=== PATIENT | male | born 1960 | race Caucasian/White ===

== ENCOUNTER → 2016-04-28 | Outpatient (REF) | payer MEDICARE, MEDICAID ==
[~2016-04-28] MED LIST: /GLYB5TA OR; AMLO10TAB OR; ASPI81TA45 OR; ATEN50TA2 OR; BACT800T PO; COLA100C2 OR; FERR325T OR; FLUC10TA PO; LANTUS INSULIN SQ; LEVEMIR INSULIN SC; LISI20TA5 OR; LOTRIMIN CREAM TOP; METF500T4 OR; NOVOLOG100 MG/ML SC; PRIL20CA OR; VYTO10TA5 OR
[2016-04-28 16:02] LABS: ALBUMIN 3.6 GM/DL (3.2-5.2); ALBUMIN/GLOBULIN RATIO 0.92 (1.00-1.93); BILIRUBIN,TOTAL 0.5 MG/DL (0.2-1.0); CALCIUM LEVEL 9.2 MG/DL (8.5-10.1); CREATININE FOR GFR 1.33 MG/DL (0.70-1.30); GLOMERULAR FILTRATION RATE 59.6 (>56); POTASSIUM SERUM 4.3 MEQ/L (3.5-5.1); TOTAL PROTEIN 7.5 GM/DL (6.4-8.2)
== END ==
LOC: M SFHCSACK 08:30
PROVIDERS: ATTEND Physician Assistant
DX: E11.9 Type 2 diabetes mellitus without complications (principal); I10 Essential (primary) hypertension; E78.2 Mixed hyperlipidemia

== ENCOUNTER 2016-06-05 11:03 | Emergency (ER) | payer MEDICAID, MEDICARE ==
[~2016-06-05] VITALS: Ht 193 cm; Wt 148.3 kg
[2016-06-05] MEDS ORDERED: TOUJ1.2I (11:22)
[2016-06-05] MEDS ORDERED: JARD1TAB (11:22)
[2016-06-05] MEDS ORDERED: OXYCODONE (11:22)
[2016-06-05] MEDS ORDERED: ATOR40TA (11:22)
[2016-06-05] MEDS ORDERED: ZOLP10TA2 (11:22)
[2016-06-05] MEDS ORDERED: LISI10TA2 (11:22)
[2016-06-05] MEDS ORDERED: ONDANSETRON 4MG/2ML VIAL (J2405) IV ONE (11:45)
[2016-06-05] MEDS ORDERED: NS 1,000 ML IV ONE (11:45)
[2016-06-05 11:53] LABS: BASO # 0.1 K/mm3 (0.0-0.2); BASO % 0.9 % (0.0-1.0); EOS # 0.3 K/mm3 (0.0-0.50); EOS % 3.7 % (0.0-3.0); LARGE UNSTAINED CELL # 0.1 K/mm3 (0.0-0.4); LARGE UNSTAINED CELL % 1.7 % (0.0-4.0); LYMPH # 2.8 K/mm3 (1.5-4.5); MEAN CORPUSCULAR HEMOGLOBIN 32.4 pg (27.0-33.0); MEAN CORPUSCULAR HGB CONC 35.2 g/dl (32.0-36.5); MEAN CORPUSCULAR VOLUME 91.9 fl (80.0-96.0); MONO # 0.5 K/mm3 (0.0-0.8); MONO % 6.1 % (0.0-5.0); NEUTROPHILS # 4.2 K/mm3 (1.8-7.7); NEUTROPHILS % 52.6 % (36.0-66.0); PLATELET COUNT, AUTOMATED 333 k/mm3 (150-450)
--- NOTE | 2016-06-05 12:12 | REP ---
Acute abdominal series three views including PA chest and supine upright abdomen: Comparison is 2011. PA chest: Lung menendez are clear. Cardiac size is normal. The dayanna, mediastinum, and bony thorax are unremarkable. There is thoracic scoliosis convex right, unchanged. There is no free subdiaphragmatic air. Impression: Essentially negative PA chest. No interval change. Abdomen, supine and upright views: There are fluid levels in nondistended bowel loops in the abdomen on the right. This is nonspecific. There is no bowel distension or obstruction otherwise. There are a surgical staple lines in the left upper quadrant, not present previously. Skeletal structures and soft tissues otherwise are unremarkable. Impression: Nonspecific bowel gas pattern. Signed by Richard Timmons MD 06/05/2016 12:04 P
[2016-06-05 12:15] LABS: ALBUMIN 3.4 GM/DL (3.2-5.2); ALBUMIN/GLOBULIN RATIO 0.71 (1.00-1.93); BILIRUBIN,DIRECT 0.2 MG/DL (0.0-0.2); BILIRUBIN,TOTAL 0.5 MG/DL (0.2-1.0); CREATININE FOR GFR 1.47 MG/DL (0.70-1.30); GLOMERULAR FILTRATION RATE 53.1 (>56); POTASSIUM SERUM 4.1 MEQ/L (3.5-5.1); TOTAL PROTEIN 8.2 GM/DL (6.4-8.2)
--- NOTE | 2016-06-05 12:27 | REP ---
Abdominal right upper quadrant ultrasound: The study is technically difficult because of patient body habitus and bowel gas. The gallbladder is not optimally visualized. There is question of a calculus in the dependent portion of the gallbladder, possibly in the gallbladder neck. The hepatic parenchyma is poorly demonstrated. There is no definite intrahepatic biliary duct dilatation. The common duct measures 6.7 mm diameter which is upper normal. Pancreas is obscured by bowel and is not visualized. There is no right renal hydronephrosis, calculus, mass or cyst. The right kidney is normal size measuring balloon 11.64 cm craniocaudad length. Impression: Suboptimal study because of patient body habitus. Possible gallbladder calculus, questionably in the gallbladder neck. There is a negative Thakur's sign to transducer pressure. Signed by Richard Timmons MD 06/05/2016 12:18 P
[2016-06-05] MEDS ORDERED: ZOFR4TAB3 PO (12:54)
[2016-06-05 13:06] VITALS: BP 125/68
--- NOTE | 2016-06-06 21:28 | ED PDOC ---
Post-Departure Follow-Up elly emanual faxed formal report of nicolas thompson for fu Maria De Jesus Fowler MD Jun 06, 2016 21:28
== END 2016-06-05 13:08 | disposition home or self-care (01) ==
LOC: M ED 11:35
DX: K80.70 Calculus of gallbladder and bile duct without cholecystitis without obstruction (principal); R11.0 Nausea; I10 Essential (primary) hypertension; E11.9 Type 2 diabetes mellitus without complications; E78.00 Pure hypercholesterolemia, unspecified; G47.30 Sleep apnea, unspecified; K21.9 Gastro-esophageal reflux disease without esophagitis; M54.9 Dorsalgia, unspecified; Z87.442 Personal history of urinary calculi; Z98.84 Bariatric surgery status; Z87.891 Personal history of nicotine dependence; Z79.899 Other long term (current) drug therapy; Z79.4 Long term (current) use of insulin; Z79.84 Long term (current) use of oral hypoglycemic drugs; Z79.2 Long term (current) use of antibiotics
CPT/HCPCS: 36415; 74022; 76705; 80048; 80076; 82150; 83690; 85025; 96374; 99283; J2405

== ENCOUNTER → 2016-07-29 | Outpatient (CLI) | payer MEDICARE, MEDICAID ==
[~2016-07-29] MED LIST changes: +ATOR40TA; +JARD1TAB; +LISI10TA2; +OXYCODONE; +TOUJ1.2I; +ZOFR4TAB3 PO; +ZOLP10TA2
== END ==
LOC: M WUC 11:58
PROVIDERS: ATTEND Physician Assistant
DX: M25.511 Pain in right shoulder (principal)

== ENCOUNTER → 2016-08-20 | Outpatient (REF) | payer MEDICARE, MEDICAID ==
[~2016-08-20] MED LIST changes: -ATOR40TA; +ATOR40TA75
[2016-08-20 16:34] LABS: ALBUMIN 3.6 GM/DL (3.2-5.2); ALBUMIN/GLOBULIN RATIO 0.95 (1.00-1.93); BILIRUBIN,TOTAL 0.6 MG/DL (0.2-1.0); CALCIUM LEVEL 9.3 MG/DL (8.5-10.1); CREATININE FOR GFR 1.61 MG/DL (0.70-1.30); GLOMERULAR FILTRATION RATE 47.8 (>56); POTASSIUM SERUM 4.3 MEQ/L (3.5-5.1); TOTAL PROTEIN 7.4 GM/DL (6.4-8.2)
== END ==
LOC: M SFHCSACK 08:49
PROVIDERS: ATTEND Physician Assistant
DX: I10 Essential (primary) hypertension (principal); E11.9 Type 2 diabetes mellitus without complications; E78.2 Mixed hyperlipidemia

== ENCOUNTER → 2016-10-22 | Outpatient (REF) | payer MEDICARE, MEDICAID ==
[2016-10-22 17:29] LABS: ALBUMIN 3.9 GM/DL (3.2-5.2); ALBUMIN/GLOBULIN RATIO 0.89 (1.00-1.93); ALKALINE PHOSPHATASE 106 U/L (45-117); ALT/SGPT 22 U/L (12-78); ANION GAP 9 MEQ/L (8-16); AST/SGOT 22 U/L (15-37); BILIRUBIN,TOTAL 0.4 MG/DL (0.2-1.0); BLOOD UREA NITROGEN 30 MG/DL (7-18); CALCIUM LEVEL 10.3 MG/DL (8.5-10.1); CARBON DIOXIDE LEVEL 29 MEQ/L (21-32); CHLORIDE LEVEL 105 MEQ/L (98-107); CHOLESTEROL LEVEL 148 MG/DL (<200); GLOMERULAR FILTRATION RATE > 60.0 (>56); GLUCOSE, FASTING 165 MG/DL (70-105); POTASSIUM SERUM 3.8 MEQ/L (3.5-5.1); SODIUM LEVEL 143 MEQ/L (136-145); TOTAL PROTEIN 8.3 GM/DL (6.4-8.2); TRIGLYCERIDES LEVEL 158 MG/DL (<150)
[2016-10-22 19:33] LABS: BASO # 0.1 K/mm3 (0.0-0.2); BASO % 1.4 % (0.0-1.0); EOS # 0.3 K/mm3 (0.0-0.50); EOS % 3.8 % (0.0-3.0); LARGE UNSTAINED CELL # 0.2 K/mm3 (0.0-0.4); LARGE UNSTAINED CELL % 2.2 % (0.0-4.0); LYMPH # 3.4 K/mm3 (1.5-4.5); LYMPH % 37.7 % (24.0-44.0); MEAN CORPUSCULAR HEMOGLOBIN 30.5 pg (27.0-33.0); MEAN CORPUSCULAR HGB CONC 32.4 g/dl (32.0-36.5); MONO # 0.5 K/mm3 (0.0-0.8); MONO % 5.7 % (0.0-5.0); NEUTROPHILS # 4.2 K/mm3 (1.8-7.7); NEUTROPHILS % 49.3 % (36.0-66.0); PLATELET COUNT, AUTOMATED 402 k/mm3 (150-450); RED CELL DISTRIBUTION WIDTH 13.1 % (11.5-14.5); WHITE BLOOD COUNT 8.4 K/mm3 (4.0-10.0)
== END ==
LOC: M SFHCSACK 08:26
PROVIDERS: ATTEND Physician Assistant
DX: I10 Essential (primary) hypertension (principal); E78.2 Mixed hyperlipidemia; E11.9 Type 2 diabetes mellitus without complications

== ENCOUNTER → 2017-01-24 | Outpatient (REF) | payer MEDICARE, MEDICAID ==
[2017-01-24 14:57] LABS: BASO # 0.1 10^3/uL (0.0-0.2); BASO % 1.5 % (0.0-1.0); EOS # 0.4 10^3/uL (0.0-0.50); EOS % 4.4 % (0.0-3.0); IMMATURE GRANULOCYTE % 0.1 % (0-0); LYMPH # 3.2 10^3/uL (1.5-4.5); LYMPH % 40.7 % (24.0-44.0); MEAN CORPUSCULAR HEMOGLOBIN 30.9 pg (27.0-33.0); MEAN CORPUSCULAR HGB CONC 32.2 g/dl (32.0-36.5); MEAN CORPUSCULAR VOLUME 95.8 fl (80.0-96.0); MONO # 0.7 10^3/uL (0.0-0.8); MONO % 8.6 % (0.0-5.0); NEUTROPHILS # 3.5 10^3/uL (1.8-7.7); NEUTROPHILS % 44.7 % (36.0-66.0); PLATELET COUNT, AUTOMATED 343 10^3/uL (150-450); RED CELL DISTRIBUTION WIDTH 12.1 % (11.5-14.5); WHITE BLOOD COUNT 7.9 10^3/uL (4.0-10.0)
[2017-01-24 15:20] LABS: ALBUMIN 3.9 GM/DL (3.2-5.2); ALBUMIN/GLOBULIN RATIO 0.95 (1.00-1.93); BILIRUBIN,TOTAL 0.3 MG/DL (0.2-1.0); CALCIUM LEVEL 9.2 MG/DL (8.5-10.1); CREATININE FOR GFR 1.57 MG/DL (0.70-1.30); FREE T4 0.81 NG/DL (0.76-1.46); GLOMERULAR FILTRATION RATE 49.3 (>56)
== END ==
LOC: M SFHCSACK 08:45
PROVIDERS: ATTEND Physician Assistant
DX: D64.9 Anemia, unspecified (principal); I10 Essential (primary) hypertension; R53.83 Other fatigue; E11.9 Type 2 diabetes mellitus without complications; E78.2 Mixed hyperlipidemia; Z23 Encounter for immunization; Z79.899 Other long term (current) drug therapy

== ENCOUNTER → 2017-03-16 | Outpatient (REF) | payer MEDICARE, MEDICAID ==
[2017-03-16 20:21] LABS: RETIC HEMOGLOBIN EQUIVALENT 36.3 pg (24-36); RETICULOCYTE % 1.4 % (0.5-1.5)
[2017-03-16 20:44] LABS: ERYTHROCYTE SEDIMENTATION RATE 65 mm/hr (0-20)
[2017-03-16 20:46] LABS: VITAMIN B12 LEVEL 984 PG/ML (247-911)
[2017-03-16 21:00] LABS: FERRITIN 232 NG/ML (26-388); IRON (FE) 73 UG/DL (65-175); PERCENT SATURATION 23.2 % (19.7-50.0); TOTAL IRON BINDING CAPACITY 315 UG/DL (250-450)
[2017-03-17 11:38] LABS: ALBUMIN 4.22 GM/DL (3.29-5.55); ALBUMIN % 52.7 % (55.8-66.1); ALPHA-1-GLOBULIN % 4.4 % (2.9-4.9); ALPHA-1-GLOBULINS 0.35 GM/DL (0.17-0.41); ALPHA-2-GLOBULINS % 12.5 % (7.1-11.8); BETA-1-GLOBULINS 0.53 GM/DL (0.28-0.60); BETA-1-GLOBULINS % 6.6 % (4.7-7.2); BETA-2-GLOBULINS % 6.3 % (3.2-6.5); GAMMA GLOBULIN % 17.5 % (11.1-18.8)
[2017-03-19 00:08] LABS: HAPTOGLOBIN 219 mg/dL (34-200)
[2017-03-19 00:08] LABS: ERYTHROPOIETIN 6.7 mIU/mL (2.6-18.5); FREE KAPPA LIGHT CHAINS SERUM 45.5 mg/L (3.3-19.4); FREE LAMBDA LIGHT CHAINS SERUM 28.5 mg/L (5.7-26.3)
== END ==
LOC: M LAB REF 19:54
DX: D64.9 Anemia, unspecified (principal)
CPT/HCPCS: 83010

== ENCOUNTER → 2017-04-14 | Outpatient (REF) | payer MEDICARE, MEDICAID ==
[2017-04-14 14:38] LABS: RHEUMATOID FACTOR QUANT < 10.0 IU/ML (0-15.0)
[2017-04-14 15:06] LABS: ERYTHROCYTE SEDIMENTATION RATE 67 mm/hr (0-20)
[2017-04-15 14:36] LABS: ANTINUCLEAR ANTIBODIES DIRECT Negative (Negative)
== END ==
LOC: M LAB REF 13:12
DX: D64.9 Anemia, unspecified (principal)
CPT/HCPCS: 85652

== ENCOUNTER → 2017-05-02 | Outpatient (REF) | payer MEDICARE, MEDICAID ==
[2017-05-02 14:20] LABS: BASO # 0.1 10^3/uL (0.0-0.2); BASO % 1.4 % (0.0-1.0); EOS # 0.3 10^3/uL (0.0-0.50); EOS % 4.3 % (0.0-3.0); HEMATOCRIT 34.5 % (42.0-52.0); HEMOGLOBIN 11.2 g/dl (14.0-18.0); IMMATURE GRANULOCYTE % 0.3 % (0-3.0); LYMPH # 3.2 10^3/uL (1.5-4.5); LYMPH % 43.1 % (24.0-44.0); MEAN CORPUSCULAR HEMOGLOBIN 30.9 pg (27.0-33.0); MEAN CORPUSCULAR HGB CONC 32.5 g/dl (32.0-36.5); MONO # 0.6 10^3/uL (0.0-0.8); MONO % 8.4 % (0.0-5.0); NEUTROPHILS # 3.1 10^3/uL (1.8-7.7); NEUTROPHILS % 42.5 % (36.0-66.0); PLATELET COUNT, AUTOMATED 379 10^3/uL (150-450); RED BLOOD COUNT 3.63 10^6/uL (4.30-6.10); RED CELL DISTRIBUTION WIDTH 11.7 % (11.5-14.5); WHITE BLOOD COUNT 7.4 10^3/uL (4.0-10.0)
[2017-05-02 14:40] LABS: ALBUMIN/GLOBULIN RATIO 1.03 (1.00-1.93); ALKALINE PHOSPHATASE 104 U/L (45-117); ALT/SGPT 12 U/L (12-78); ANION GAP 8 MEQ/L (8-16); AST/SGOT 9 U/L (7-37); BILIRUBIN,TOTAL 0.4 MG/DL (0.2-1.0); BLOOD UREA NITROGEN 34 MG/DL (7-18); CALCIUM LEVEL 9.5 MG/DL (8.5-10.1); CARBON DIOXIDE LEVEL 26 MEQ/L (21-32); CHLORIDE LEVEL 108 MEQ/L (98-107); CREATININE FOR GFR 1.31 MG/DL (0.70-1.30); FERRITIN 246 NG/ML (26-388); GLOMERULAR FILTRATION RATE > 60.0 (>56); GLUCOSE, FASTING 127 MG/DL (70-100); IRON (FE) 83 UG/DL (65-175); PERCENT SATURATION 24.8 % (19.7-50.0); POTASSIUM SERUM 4.9 MEQ/L (3.5-5.1); SODIUM LEVEL 142 MEQ/L (136-145); TOTAL IRON BINDING CAPACITY 335 UG/DL (250-450); TOTAL PROTEIN 7.9 GM/DL (6.4-8.2)
[2017-05-02 14:41] LABS: ESTIMATED AVERAGE GLUCOSE 137 MG/DL (60-110); HEMOGLOBIN A1c 6.4 %
== END ==
LOC: M SFHCSACK 08:44
DX: E78.2 Mixed hyperlipidemia (principal); I10 Essential (primary) hypertension; D64.9 Anemia, unspecified; E11.9 Type 2 diabetes mellitus without complications
CPT/HCPCS: 83550

== ENCOUNTER → 2017-06-14 | Outpatient (CLI) | payer MEDICARE, MEDICAID ==
[2017-06-14 09:23] LABS: HEMATOCRIT 33.1 % (42.0-52.0); HEMOGLOBIN 10.9 g/dl (13.5-17.5); MEAN CORPUSCULAR HEMOGLOBIN 31.1 pg (27.0-33.0); MEAN CORPUSCULAR HGB CONC 32.9 g/dl (32.0-36.5); MEAN CORPUSCULAR VOLUME 94.6 fl (80.0-96.0); PLATELET COUNT, AUTOMATED 286 10^3/uL (150-450); RED CELL DISTRIBUTION WIDTH 12.1 % (11.5-14.5); WHITE BLOOD COUNT 5.8 10^3/uL (4.0-10.0)
[2017-06-14 10:06] LABS: ALBUMIN 3.8 GM/DL (3.2-5.2); ALBUMIN/GLOBULIN RATIO 1.03 (1.00-1.93); ALKALINE PHOSPHATASE 96 U/L (45-117); ALT/SGPT 14 U/L (12-78); ANION GAP 7 MEQ/L (8-16); AST/SGOT 13 U/L (7-37); BILIRUBIN,TOTAL 0.4 MG/DL (0.2-1.0); BLOOD UREA NITROGEN 24 MG/DL (7-18); CALCIUM LEVEL 9.2 MG/DL (8.5-10.1); CARBON DIOXIDE LEVEL 26 MEQ/L (21-32); CHLORIDE LEVEL 112 MEQ/L (98-107); CHOLESTEROL LEVEL 125 MG/DL (<200); CHOLESTEROL RISK RATIO 2.976 (<5); CREATININE FOR GFR 1.29 MG/DL (0.70-1.30); GLOMERULAR FILTRATION RATE > 60.0 (>56); GLUCOSE, FASTING 134 MG/DL (70-100); HDL CHOLESTEROL 42 MG/DL (>40); LDL CHOLESTEROL 65.4 MG/DL (<100); NON-HDL-C 83 MG/DL; POTASSIUM SERUM 4.8 MEQ/L (3.5-5.1); PROSTATIC SPECIFIC AG MONITOR 0.46 NG/ML (< 4.0); SODIUM LEVEL 145 MEQ/L (136-145); TOTAL PROTEIN 7.5 GM/DL (6.4-8.2); TRIGLYCERIDES LEVEL 88 MG/DL (<150)
[2017-06-14 10:34] LABS: TESTOSTERONE 541 NG/DL (241-827)
[2017-06-14 10:54] LABS: ESTIMATED AVERAGE GLUCOSE 151 MG/DL (60-110); HEMOGLOBIN A1c 6.9 %
== END ==
LOC: M LAB 08:30
DX: I10 Essential (primary) hypertension (principal); E11.9 Type 2 diabetes mellitus without complications; R53.83 Other fatigue; R00.1 Bradycardia, unspecified; R94.31 Abnormal electrocardiogram [ECG] [EKG]; Z79.899 Other long term (current) drug therapy
CPT/HCPCS: 71046

== ENCOUNTER → 2017-08-04 | Outpatient (CLI) | payer MEDICARE, MEDICAID ==
[~2017-08-04] MED LIST changes: -/GLYB5TA OR; -AMLO10TAB OR; -ASPI81TA45 OR; -ATEN50TA2 OR; -ATOR40TA75; -BACT800T PO; -COLA100C2 OR; +E-Z-GAS II EFFERVESCENT PACKET (SODIUM BICARB./CITRIC ACID/SIMETHICONE) As Ordered; +E-Z-HD 98% w/w 340GM SUSP BTL As Ordered; +E-Z-PAQUE 96% w/w SUSP 176GM BTL As Ordered; -FERR325T OR; -FLUC10TA PO; -JARD1TAB; -LANTUS INSULIN SQ; -LEVEMIR INSULIN SC; -LISI10TA2; -LISI20TA5 OR; -LOTRIMIN CREAM TOP; -METF500T4 OR; -NOVOLOG100 MG/ML SC; -OXYCODONE; -PRIL20CA OR; -TOUJ1.2I; -VYTO10TA5 OR; -ZOFR4TAB3 PO; -ZOLP10TA2
== END ==
LOC: M RAD 09:06
DX: D64.9 Anemia, unspecified (principal); Z98.84 Bariatric surgery status
CPT/HCPCS: 74241

== ENCOUNTER → 2017-08-19 | Outpatient (CLI) | payer MEDICARE ==
[2017-08-19 13:46] LABS: ANION GAP 10 MEQ/L (8-16); BLOOD UREA NITROGEN 35 MG/DL (7-18); CALCIUM LEVEL 10.1 MG/DL (8.5-10.1); CARBON DIOXIDE LEVEL 28 MEQ/L (21-32); CHLORIDE LEVEL 103 MEQ/L (98-107); CREATININE FOR GFR 1.62 MG/DL (0.70-1.30); GLOMERULAR FILTRATION RATE 47.3 (>56); GLUCOSE, FASTING 173 MG/DL (70-100); POTASSIUM SERUM 4.4 MEQ/L (3.5-5.1); SODIUM LEVEL 141 MEQ/L (136-145)
== END ==
LOC: M SMT 10:58
DX: R31.9 Hematuria, unspecified (principal)
CPT/HCPCS: 80048

== ENCOUNTER → 2017-08-19 | Outpatient (REF) | payer MEDICARE, MEDICAID ==
[2017-08-19 13:20] LABS: APPEARANCE, URINE CLOUDY (CLEAR); BACTERIA, URINE AUTO 3+ (NEGATIVE); BILIRUBIN, URINE AUTO NEGATIVE (NEGATIVE); BLOOD, URINE BLOOD 2+ (NEGATIVE); COLOR, URINE YELLOW (YELLOW); GLUCOSE, URINE (UA) AUTO NEGATIVE (NEGATIVE); KETONE, URINE AUTO NEGATIVE (NEGATIVE); LEUKOCYTE ESTERASE, URINE AUTO 3+ (NEGATIVE); MUCUS, URINE SMALL (NEGATIVE); NITRITE, URINE AUTO NEGATIVE (NEGATIVE); PROTEIN, URINE AUTO 1+ mg/dL (NEGATIVE); RBC, URINE AUTO 27 /HPF (0-3); SPECIFIC GRAVITY URINE AUTO 1.014 (1.002-1.035); SQUAMOUS EPITHELIAL CELL UR AU 3 /HPF (0-6); WBC, URINE AUTO TNTC /HPF (0-3)
== END ==
LOC: M SMT 13:07
DX: R31.9 Hematuria, unspecified (principal)
CPT/HCPCS: 80048; 81001

== ENCOUNTER → 2017-08-25 | Outpatient (CLI) | payer MEDICARE, MEDICAID | LOC: M RAD 07:30 | DX: R31.0 Gross hematuria (principal) | CPT/HCPCS: 74176 ==

== ENCOUNTER → 2017-09-12 | Outpatient (REF) | payer MEDICARE, MEDICAID | LOC: M SMT 13:13 | DX: N39.0 Urinary tract infection, site not specified (principal) | CPT/HCPCS: 87086 ==

== ENCOUNTER → 2017-10-20 | Outpatient (REF) | payer MEDICARE, MEDICAID ==
[2017-10-20 14:35] LABS: ANION GAP 8 MEQ/L (8-16); BLOOD UREA NITROGEN 20 MG/DL (7-18); CALCIUM LEVEL 9.2 MG/DL (8.5-10.1); CARBON DIOXIDE LEVEL 28 MEQ/L (21-32); CHLORIDE LEVEL 107 MEQ/L (98-107); CHOLESTEROL LEVEL 126 MG/DL (<200); CHOLESTEROL RISK RATIO 3.405 (<5); CREATININE FOR GFR 1.25 MG/DL (0.70-1.30); GLOMERULAR FILTRATION RATE > 60.0 (>56); GLUCOSE, FASTING 153 MG/DL (70-100); HDL CHOLESTEROL 37 MG/DL (>40); LDL CHOLESTEROL 66.8 MG/DL (<100); NON-HDL-C 89 MG/DL; POTASSIUM SERUM 4.1 MEQ/L (3.5-5.1); SODIUM LEVEL 143 MEQ/L (136-145); TRIGLYCERIDES LEVEL 111 MG/DL (<150)
[2017-10-20 14:55] LABS: MALB URINE SIEMENS 19.6 MG/L; MAU/CREAT RATIO 17.3 MCG/MG (0.0-30.0)
== END ==
LOC: M LAB REF 13:00
DX: E11.65 Type 2 diabetes mellitus with hyperglycemia (principal); E78.00 Pure hypercholesterolemia, unspecified; D72.828 Other elevated white blood cell count
CPT/HCPCS: 80061

== ENCOUNTER → 2017-10-20 | Outpatient (REF) | payer MEDICARE, MEDICAID | LOC: M LAB REF 12:57 | DX: D72.828 Other elevated white blood cell count (principal) ==

== ENCOUNTER → 2018-10-20 | Outpatient (CLI) | payer MEDICARE ==
[~2018-10-20] MED LIST changes: +AMLO10TAB OR; +ASPI81TA45 OR; +ATEN50TA2 OR; +ATOR40TA75; +BACT800T PO; +COLA100C2 OR; +COLA100C5 PO; -E-Z-GAS II EFFERVESCENT PACKET (SODIUM BICARB./CITRIC ACID/SIMETHICONE) As Ordered; -E-Z-HD 98% w/w 340GM SUSP BTL As Ordered; -E-Z-PAQUE 96% w/w SUSP 176GM BTL As Ordered; +FERR325T OR; +FERR325T3 PO; +FLUC10TA PO; +GLYB1TAB29 OR; +HYDR25TAB PO; +INSUHUMDS SC; +JARD1TAB; +LANTUS INSULIN SQ; +LEVEMIR INSULIN SC; +LISI10TA15; +LISI20TA5 OR; +LOTRIMIN CREAM TOP; +METF-839 PO; +METF500T4 OR; +NOVOLOG100 MG/ML SC; +OMEP20CA4 PO; +OXYC1TAB23 PO; +OXYCODONE; +PRIL20CA OR; +TIZA4CAP6 PO; +TOUJ1.2I; +VYTO10TA5 OR; +ZOFR4TAB14 PO; +ZOLP10TA2
[2018-10-20 10:45] LABS: ALBUMIN 3.8 GM/DL (3.2-5.2); ALT/SGPT 16 U/L (12-78); BILIRUBIN,TOTAL 0.6 MG/DL (0.2-1.0); BLOOD UREA NITROGEN 22 MG/DL (7-18); CALCIUM LEVEL 9.8 MG/DL (8.5-10.1); CARBON DIOXIDE LEVEL 29 MEQ/L (21-32); CHLORIDE LEVEL 106 MEQ/L (98-107); CHOLESTEROL LEVEL 140 MG/DL (<200); CHOLESTEROL RISK RATIO 3.414 (<5); CREATININE FOR GFR 1.05 MG/DL (0.70-1.30); GLOMERULAR FILTRATION RATE > 60.0 (>56); GLUCOSE, FASTING 122 MG/DL (70-100); HDL CHOLESTEROL 41 MG/DL (>40); LDL CHOLESTEROL 79 MG/DL (<100); NON-HDL-C 99 MG/DL; POTASSIUM SERUM 4.9 MEQ/L (3.5-5.1); SODIUM LEVEL 141 MEQ/L (136-145); TOTAL PROTEIN 7.6 GM/DL (6.4-8.2); TRIGLYCERIDES LEVEL 99 MG/DL (<150)
[2018-10-20 10:54] LABS: CREATININE, URINE 62.5 MG/DL; MALB URINE SIEMENS 24.4 MG/L
== END ==
LOC: M LAB 09:13
PROVIDERS: ATTEND Nurse Practitioner Family
DX: E11.65 Type 2 diabetes mellitus with hyperglycemia (principal); E78.00 Pure hypercholesterolemia, unspecified

== ENCOUNTER → 2019-04-25 | Outpatient (CLI) | payer MEDICARE, MEDICAID ==
[~2019-04-25] MED LIST changes: +FERR325T16 PO; +GEMF600T5 PO; +OMEP1CAP73 PO; -OMEP20CA4 PO; +PANT40TA3 PO
--- NOTE | 2019-04-25 18:42 | REP ---
Lumbar spine five views: There are no comparisons. Vertebral body heights, interspacing alignment are normal. There are mild degenerative disc changes at L1-2, L3-4 and L5 S1. The pedicles and facets are unremarkable. There is no spondylolysis or spondylolisthesis. The sacroiliac articulations are excluded. There is a surgical staple line in the abdomen on the left. Impression: Mild degenerative disc disease as described. Otherwise, negative lumbar spine. Surgical staple line in the abdomen on the left. Electronically Signed by Richard Timmons MD 04/25/2019 06:35 P
== END ==
LOC: M RAD 12:01
PROVIDERS: ATTEND Family Medicine
DX: M54.30 Sciatica, unspecified side (principal)

== ENCOUNTER → 2019-11-14 | Outpatient (REF) | payer MEDICARE, MEDICAID ==
[~2019-11-14] MED LIST changes: +ATEN50TA2 PO; +CEFD1CAP8 PO; +LISI-542 PO; +NAPR-837 PO; +OMEP40CA97 PO; +PANT40TA29 PO; -PANT40TA3 PO
[2019-11-14 14:47] LABS: MALB URINE SIEMENS 99.4 MG/L; MAU/CREAT RATIO 87.9 MCG/MG (0.0-30.0)
== END ==
LOC: M LAB REF 13:27
PROVIDERS: ATTEND Nurse Practitioner Family
DX: R80.9 Proteinuria, unspecified (principal)

== ENCOUNTER 2019-12-09 12:29 | Emergency (ER) | payer MEDICARE, MEDICAID ==
[~2019-12-09] VITALS: Ht 193 cm; Wt 134.6 kg
[~2019-12-09 12:29] MED LIST changes: -ATEN50TA2 PO; -CEFD1CAP8 PO; -LISI-542 PO; -NAPR-837 PO; -OMEP40CA97 PO
[2019-12-09] MEDS ORDERED: ATEN50TA2 PO (12:43)
[2019-12-09] MEDS ORDERED: OMEP40CA97 PO (12:43)
[2019-12-09] MEDS ORDERED: LISI-542 PO (12:43)
[2019-12-09] MEDS ORDERED: ONDANSETRON 4MG/2ML VIAL IV ONE (13:45)
[2019-12-09] MEDS ORDERED: MORPHINE 4 MG/ML 1ML VIAL/SYRINGE (J2270) IV ONE (13:45)
[2019-12-09] MEDS ORDERED: NS 1,000 ML IV ONE (13:45)
[2019-12-09] MEDS ORDERED: ISOVUE-370 76% 100ML VIAL As Ordered ONE (14:34)
[2019-12-09 14:38] LABS: BASO # 0.1 10^3/uL (0.0-0.2); BASO % 0.5 % (0.0-1.0); EOS % 0.2 % (0.0-3.0); HEMATOCRIT 35.3 % (42.0-52.0); HEMOGLOBIN 11.6 g/dl (13.5-17.5); LYMPH # 0.5 10^3/uL (1.5-5.0); LYMPH % 3.1 % (24.0-44.0); MEAN CORPUSCULAR HEMOGLOBIN 29.4 pg (27.0-33.0); MEAN CORPUSCULAR HGB CONC 32.9 g/dl (32.0-36.5); MEAN CORPUSCULAR VOLUME 89.6 fl (80.0-96.0); MONO # 0.7 10^3/uL (0.0-0.8); MONO % 4.9 % (0.0-5.0); NEUTROPHILS # 13.5 10^3/uL (1.5-8.5); NEUTROPHILS % 90.8 % (36.0-66.0); PLATELET COUNT, AUTOMATED 349 10^3/uL (150-450); RED BLOOD COUNT 3.94 10^6/uL (4.30-6.10); WHITE BLOOD COUNT 14.8 10^3/uL (4.0-10.0)
[2019-12-09 14:48] LABS: INR 1.03; PROTHROMBIN TIME 13.7 SECONDS (12.5-14.3)
[2019-12-09 14:49] LABS: PARTIAL THROMBOPLASTIN TIME 24.7 SECONDS (24.2-38.5)
[2019-12-09 15:11] LABS: CK-MB VALUE MASS < 1.0 NG/ML (<3.6); CPK CREATINE PHOSPHOKINASE 56 U/L (39-308); MB/CK RELATIVE INDEX 1.79 (< OR =4); TROPONIN I < 0.02 NG/ML (< 0.10)
--- NOTE | 2019-12-09 15:44 | REP ---
INDICATION: posterior neck pain, dizziness r/o vascular dz. COMPARISON: None. TECHNIQUE: Axial contrast-enhanced images were obtained from the thoracic inlet to the skull base with coronal and sagittal reformations using 100 cc Isovue 370 intravenous contrast material. Maximal intensity projection and multiplanar re-formation images along with 3-D rendered imaging of the arterial vasculature. This CT examination was performed using the following dose reduction techniques: Automated exposure control, adjustment of mA and/or kv according to the patient's size, and the use of iterative reconstruction technique. FINDINGS: The common carotid arteries, carotid bulbs and visualized portions of the external and the internal carotid arteries are normal. The vertebral bodies are patent and symmetric. There are no atherosclerotic lesions, areas of significant stenosis or occlusion identified. No obvious vascular abnormality noted. Bilateral jugular veins appear normal. Thyroid, parotid, submandibular and submental glands are normal. The oropharynx through hypopharynx demonstrates symmetric soft tissue structures. The airways patent and midline. There is no obvious mass or mass effect. The osseous structures are intact. Visualized osseous structures are intact. Visualized sinuses are clear. IMPRESSION: Normal CT angiography of the neck <Electronically signed by Ferny Naranjo > 12/09/19 [id number]
[2019-12-09] MEDS ORDERED: cefTRIAXone SOD 1 GM in D5W MINI-BAG PLUS 50 ML IV ONE (16:00)
[2019-12-09] MEDS ORDERED: NAPR-837 PO (16:05)
[2019-12-09] MEDS ORDERED: CEFD1CAP8 PO (16:05)
[2019-12-09 16:28] VITALS: BP 132/67
--- NOTE | 2019-12-11 09:02 | ECGEPIP ---
[facility] - ED Test Date: 2019-12-09 Pat Name: ZAC MCCORMICK Department: Room: - Gender: Male Certified Orthotist/Pedorthist: HOLLIS : 1960 Requested By: ALONSO CORONA PA-C. Order Number: [id number] Reading MD: Swapna Grant Measurements Intervals Otis Rate: 82 P: 64 CT: 146 QRS: 37 QRSD: 119 T: 4 QT: 390 QTc: 457 Interpretive Statements SINUS RHYTHM INCOMPLETE RIGHT BUNDLE BRANCH BLOCK INCREASED RATE 06/14/17 Electronically Signed on 12-11-2019 9:01:44 EDT by Swapna Grant
== END 2019-12-09 16:45 | disposition home or self-care (01) ==
LOC: M ED 12:29
DX: S16.1XXA Strain of muscle, fascia and tendon at neck level, initial encounter (principal); X50.1XXA Overexertion from prolonged static or awkward postures, initial encounter; Y92.89 Other specified places as the place of occurrence of the external cause; Y93.H9 Activity, other involving exterior property and land maintenance, building and construction; Y99.8 Other external cause status; N39.0 Urinary tract infection, site not specified; R42 Dizziness and giddiness; I10 Essential (primary) hypertension; E11.9 Type 2 diabetes mellitus without complications; Z87.891 Personal history of nicotine dependence; Z79.899 Other long term (current) drug therapy; Z79.4 Long term (current) use of insulin
CPT/HCPCS: 36415; 70498; 80047; 81001; 82550; 82553; 84484; 85025; 85610; 85730; 87088; 87186; 93005; 96361; 96365; 96375; 99284; J0696; J2270; J2405; Q9967

== ENCOUNTER 2020-03-13 09:49 | Inpatient (IN) | payer MEDICARE, MEDICAID ==
[~2020-03-13] VITALS: Ht 193 cm; Wt 131.5 kg
[~2020-03-13 09:49] MED LIST changes: +ATEN50TA2 PO; -ATOR40TA75; +ATOR40TA75 PO; +CEFD1CAP8 PO; +LISI-542 PO; +NAPR-837 PO; +OMEP40CA97 PO; -TOUJ1.2I; +TOUJ1.2I SQ
[2020-03-13] MEDS ORDERED: FARX1TAB5 PO (09:59)
--- OUTSIDE RECORDS SUMMARY | 2020-03-13 09:59 | CCD | Continuity of Care Document ---
Author Christoph Hand M.D. Organization Unknown Address [address] [place] [address] Phone [phone] Care Team Providers Care [employer] English Teacher Name Role Phone Emily Hidalgo M.D. AUTM [phone] Problems Active Problems Provider Date Neck pain Kristopher Cisneros M.D. Onset: 01/08/2020 Cervico-occipital neuralgia Kristopher Cisneros M.D. Onset: 01/07 Low back pain Kristopher Cisneros M.D. Onset: 01/08/2020 Spondylolysis of cervical spine Kristopher Cisneros M.D. Onset: 1 03/09/2019 Spondylolysis Kristopher Cisneros M.D. Onset: 01/08/2020 Skin sensation disturbance Kristopher Cisneros M.D. Onset: 2019 Radiculopathy, cervical region Kristopher Cisneros M.D. Onset: Sensory polyneuropathy Kristopher Cisneros M.D. Onset: 01/08/2020 Bilateral carpal tunnel syndrome Kristopher Cisneros M.D. Onset: 02/22/2020 Social History Type Date Description Comments Sex Unknown Tobacco Use Start: Unknown End: Unknown Patient is a former smoker Allergies, Adverse Reactions, Alerts Description No Known Drug Allergies Medications Active Medications SIG Qnty Indications Ordering Provide r Date Tizanidine HCL 4mg Tablets take half or 1 tablets by mouth three times a day as needed for neck & back pain 90tabs Kristopher Cisneros M.D. 02/22/2020 Immunizations Description No Information Available Vital Signs Date Vital Result Comment 01/08/2020 8:58am BP Systolic 130 mmHg BP Diastolic 85 mmHg Heart Rate 80 /min Respiratory Rate 14 /min Height 76 inches 6'4" Weight 290.00 lb BMI (Body Mass Index) 35.3 kg/m2 [place] Body Weight 202 lb Results Description No Information Available Procedures Date Code Description Status 01/19/2020 90658 MRI Spine Cervical W/O Contrast Completed 01/19/2020 08368 MRI Spine Cervical W/O Contrast Completed 01/19/2020 16748 MRI Brain W/O Contrast Completed 01/19/2020 47810 MRI Brain W/O Contrast Completed 01/14/2020 43155 Nerve Conduction 9-10 Studies Co mpleted 01/14/2020 51633 Needle Electromyography Complete , Five Or More Muscles Studied Completed 01/14/2020 15217 Needle Electromyography Complete , Five Or More Muscles Studied Completed Medical Devices Description No Information Available Encounters Type Date Location Provider Dx Diagnosis Office Visit 02/22/2020 12:45p Main office - René Wadsworth M54.81 Occipital neuralgia M54.2 Cervicalgia M43.02 Spondylolysis, cervical gail on G56.03 Carpal tunnel syndrome, bila teral upper limbs Office Visit 01/08/2020 8:30a Main office - René Wadsworth M54.2 Cervicalgia M54.81 Occipital neuralgia M54.5 Low back pain M43.02 Spondylolysis, cervical gail on M43.06 Spondylolysis, lumbar region R20.2 Paresthesia of skin M54.12 Radiculopathy, cervical gail on E11.42 Type 2 diabetes mellitus wit h diabetic polyneuropathy Assessments Date Code Description Provider 02/22/2020 M54.81 Occipital neuralgia Kristopher Cisneros M.D. 02/22/2020 M54.2 Cervicalgia Kristopher Cisneros M.D. 02/22/2020 M43.02 Spondylolysis, cervical region M renate Cisneros M.D. 02/22/2020 G56.03 Carpal tunnel syndrome, bilatera l upper limbs Kristopher Cisneros M.D. 01/19/2020 M54.81 Occipital neuralgia Sha Siddiqui M.D. 01/19/2020 M54.81 Occipital neuralgia MRI 01/19/2020 M54.2 Cervicalgia Haley Coreas 01/19/2020 M54.2 Cervicalgia MRI 01/19/2020 M43.02 Spondylolysis, cervical region A mirian Siddiqui M.D. 01/19/2020 M43.02 Spondylolysis, cervical region M RI 01/19/2020 M54.12 Radiculopathy, cervical region A mirian Siddiqiu M.D. 01/19/2020 M54.12 Radiculopathy, cervical region M RI 01/14/2020 G56.03 Carpal tunnel syndrome, bilatera l upper limbs Kristopher Cisneros M.D. 01/14/2020 G60.9 Hereditary and idiopathic neurop athy, unspecified Kristopher Cisneros M.D. 01/14/2020 G56.01 Carpal tunnel syndrome, right up per limb Kristopher Cisneros M.D. 01/14/2020 G56.02 Carpal tunnel syndrome, left upp er limb Kristopher Cisneros M.D. 01/08/2020 M54.2 Cervicalgia Kristopher Cisneros M.D. 01/08/2020 M54.81 Occipital neuralgia Kristopher Cisneros M.D. 01/08/2020 M54.5 Low back pain Kristopher Cisneros M.D. 01/08/2020 M43.02 Spondylolysis, cervical region Trice Cisneros M.D. 01/08/2020 M43.06 Spondylolysis, lumbar region Ирина Cisneros M.D. 01/08/2020 R20.2 Paresthesia of skin Kristopher Cisneros M.D. 01/08/2020 M54.12 Radiculopathy, cervical region Trice Cisneros M.D. 01/08/2020 E11.42 Type 2 diabetes mellitus with di abetic polyneuropathy Kristopher Cisneros M.D. Plan of Treatment No Information Available Functional Status Description No Information Available Mental Status Description No Information Available Referrals Refer to Reason for Referral Status Appt Date Kristopher Cisneros M.D. Created [facility] [address] [place] [address] [phone]
--- OUTSIDE RECORDS SUMMARY | 2020-03-13 09:59 | CCD | Continuity of Care Document ---
Author Christoph Hand M.D. 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 AUTM [phone] Problems Active Problems Provider Date Neck pain [...] lb BMI (Body Mass Index) 35.3 kg/m2 [place] Body Weight 202 lb Results Description No Information Available Procedures Date Code Description Status 01/19/2020 10788 MRI Spine Cervical W/O Contrast Completed 01/19/2020 71961 MRI Spine Cervical W/O Contrast Completed 01/19/2020 09542 MRI Brain W/O Contrast Completed 01/19/2020 66647 MRI Brain W/O Contrast Completed 01/14/2020 61958 Nerve Conduction 9-10 Studies Co mpleted 01/14/2020 14835 Needle Electromyography Complete , Five Or More Muscles Studied Completed 01/14/2020 63584 Needle Electromyography Complete , Five Or More Muscles Studied Completed Medical Devices Description No Information Available Encounters Type Date Location Provider Dx Diagnosis Office Visit 02/22/2020 12:45p Main [place] - [place] M54.81 Occipital neuralgia M54.2 Cervicalgia M43.02 Spondylolysis, cervical gail on G56.03 Carpal tunnel syndrome, bila teral upper limbs M54.12 Radiculopathy, cervical gail on Office Visit 01/08/2020 8:30a Main office - [place] M54.2 Cervicalgia M54.81 Occipital neuralgia M54.5 Low back pain M43.02 Spondylolysis, cervical gail on M43.06 Spondylolysis, lumbar region R20.2 Paresthesia of skin M54.12 Radiculopathy, cervical gail on E11.42 Type 2 diabetes mellitus wit h diabetic polyneuropathy Assessments Date Code Description Provider 02/22/2020 M54.81 Occipital neuralgia Kristopher Cisneros M.D. 02/22/2020 M54.2 Cervicalgia Kristopher Cisneros M.D. 02/22/2020 M43.02 Spondylolysis, cervical region Trice Cisneros M.D. 02/22/2020 G56.03 Carpal tunnel syndrome, bilatera l upper limbs Kristopher Cisneros M.D. 02/22/2020 M54.12 Radiculopathy, cervical region Trice Cisneros M.D. 01/19/2020 M54.81 Occipital neuralgia Sha Siddiqui M.D. 01/19/2020 M54.81 Occipital neuralgia MRI 01/19/2020 M54.2 Cervicalgia Sha Artur, RenéD Jami 01/19/2020 M54.2 Cervicalgia MRI 01/19/2020 M43.02 Spondylolysis, cervical region A bdul Artur, M.DJami 01/19/2020 M43.02 Spondylolysis, cervical region M RI 01/19/2020 M54.12 Radiculopathy, cervical region A bdul Artur, M.D. 01/19/2020 M54.12 Radiculopathy, cervical region M RI 01/14/2020 G56.03 Carpal tunnel syndrome, bilatera l upper limbs Kristopher Cisneros M.D. 01/14/2020 G60.9 Hereditary and idiopathic neurop athy, unspecified Kristopher Cisneros M.D. 01/14/2020 G56.01 Carpal tunnel syndrome, right up per limb Kristopher Cisnerso M.D. 01/14/2020 G56.02 Carpal tunnel syndrome, left [...] Description No Information Available Referrals Refer to Dr Reason for Referral Status Appt Date Kristopher Cisneros M.D. Created [facility] [address] [place] [address] [phone]
--- OUTSIDE RECORDS SUMMARY | 2020-03-13 10:00 | CCD | Continuity of Care Document ---
Author Author Christoph [facility]IO [address] [employer] Organization Unknown Address [address] [address] Phone [phone] Care Team Providers Care Marble Cutter Operator Name Role Phone Emily Hidalgo MD AUTM [phone] Problems Active Problems Provider Date Type II diabetes mellitus uncontrolled Jocelin Cummings MD O nset: 12/22/2010 Pure hypercholesterolemia Jocelin Cummings MD Onset: 011 Essential hypertension Johnna Arevalo PA-C Onset: Examination Other Specified Johnna Arevalo PA-C Onset : 09/04/2013 Morbid obesity Johnna Arevalo PA-C Onset: 2013 Needs influenza immunization Johnna Arevalo PA-C Onse t: 12/05/2013 Body mass index 40+ - severely obese Cynthia Bazan Onset: 12/16/2014 Long-term current use of insulin Gypsy Trinh DO Onset : 06/19/2015 Encounter for other specified special examinations Gypsy Trinh DO Onset: 06/19/2015 Social History Type Date Description Comments Sex Unknown Cigarette Use Quit ETOH Use Negative For Currently consumes alcohol Tobacco Use Start: Unknown End: Unknown Patient is a former smoker Smoking Status Reviewed: 02/21/20 Patient is a former smoker Allergies, Adverse Reactions, Alerts Description No Known Drug Allergies Medications Active Medications SIG Qnty Indications Ordering Provide r Date Farxiga 5mg Tablets 1 by mouth every day 30tabs E11.65 Oliva Mario NP 02/21/2020 Humalog Kwikpen 100U nit/ML Solution Pen-Inject Use as Directed Three Times A Day Maximum Daily Dose = 20 Units 45units Oliva Mario NP 10/20/2016 Onetouch Verio Strips use as directed up to 3 x daily e11.65 300units E11.65 Oliva Mario NP 7 Onetouch Delica Lancets Fine 30G 3 0G Misc use as directed 3 times a day 300units E11.65 Oliva Mario NP 07/20/2016 Hydrochlorothiazide 25mg Tablets 1/2 tablet twice daily mdd 1 180tabs Oliva Mario NP 07/2016 Metformin HCL ER 500mg Tablets ER 24HR Take One Tablet By Mouth Twice A Day 180tabs E11.65 Oliva buchanan NP 02/27/2016 Tonorman Zurita 300U nit/ML Solution Pen-Inject use as directed 20units a day 9ml Oliva buchanan NP 12/16/2014 Pen [place] 1/2" 29G X 12mm Misc use as directed 6 daily 200units Oliva Mario NP 03/07/[address] 1 po bid Unknown Docusate Sodium Capsules 1 by mouth twice a day prn Unknown Atenolol 25mg Tablets 1 by mouth every day Unknown Atorvastatin Calcium 40mg Tablets 1 by mouth qhs Unknown Zolpidem Tartrate 10mg Tablets 1 by mouth every night at bedtime prn/insomina Unknown Oxycodone-Acetaminophen 5-325mg Ta blets 1 po q4hrs prn for pain Unknown Ferrous Gluconate 324(38Fe) mg Tab lets 1 tab by mouth once daily 90tabs Oliva Mario NP Tizanidine HCL 4mg Capsules take one capsule by mouth qd Unknown Immunizations Description No Information Available Vital Signs Date Vital Result Comment 02/21/2020 3:40pm BP Systolic 128 mmHg BP Diastolic 80 mmHg Heart Rate 77 /min Body Temperature 97.0 F Height 73.5 inches 6'1.50" Weight 300.00 lb BMI (Body Mass Index) 39.0 kg/m2 O2 % BldC Oximetry 98 % 11/14/2019 8:39am BP Systolic 120 mmHg BP Diastolic 80 mmHg Heart Rate 67 /min Height 73.5 inches 6'1.50" Weight 295.12 lb BMI (Body Mass Index) 38.4 kg/m2 O2 % BldC Oximetry 97 % Results Test Acquired Date Facility Test Result H/L Range Note Laboratory test finding 02/21/2020 In House Hemoglobin A1c 8.0 Glucose 235 Urine Micro/Creat Ratio Random 11/14/2019 [facility] [address] [place] [address] [phone] Creatinine, Urine 113.0 mg/dL Normal Malb Urine Siemens 99.4 mg/L Normal Gerardo/Creat Ratio 87.9 MCG/MG High 0.0-30.0 1 Laboratory test finding 11/14/2019 In House Hemoglobin A1c 8.3 Glucose 150 1 THE [place] ATION STATES THAT MICROALBUMINURIA IS PRESENT IF THE MICROALBUMIN/CREATININE RATIO EXCEEDS 30 MCG/MG. THE THRESHOLD FOR CLINICAL ALBUMINURIA IS REACHED AT 300 MCG/MG. THE CLASSIFICATION OF A PATIENT SHOULD BE BASED UPON AT LEAST 2 OF 3 ABNORMAL RESULTS ON SPECIMENS COLLECTED WITHIN A 3 TO 6 MONTH TIME FRAME. Procedures Date Code Description Status 05/16/2019 [id number] Diabetic Foot Exam Completed Medical Devices Description No Information Available Encounters Type Date Location Provider Dx Diagnosis Office Visit 02/21/2020 3:45p DR. Jocelin Mario, [address] [employer] E1 1.65 Type 2 diabetes mellitus with hyperglycemia E78.00 Pure hypercholesterolemia, u nspecified I10 Essential (primary) hyperten jamia Z79.4 terminal carman (current) use of i nsulin R80.9 Proteinuria, unspecified Office Visit 11/14/2019 8:45a DR. Jocelin Mario, [address] [employer] E1 1.65 Type 2 diabetes mellitus with hyperglycemia E78.00 Pure hypercholesterolemia, u nspecified I10 Essential (primary) hyperten jamia Z79.4 prison (current) use of i nsulin R80.9 Proteinuria, unspecified Assessments Date Code Description Provider 02/21/2020 E11.65 Type 2 diabetes mellitus with hy perglycemia Oliva Mario NP 02/21/2020 E78.00 Pure hypercholesterolemia, unspe cified Oliva Mario NP 02/21/2020 I10 Essential (primary) hypertension Oliva Mario, ABELARDO 02/21/2020 Z79.4 terminal carman (current) use of insul in Oliva Mario NP 02/21/2020 R80.9 Proteinuria, unspecified Oliva Mario NP 11/14/2019 E11.65 Type 2 diabetes mellitus with hy perglycemia Oliva Mario NP 11/14/2019 E78.00 Pure hypercholesterolemia, unspe cified Oliva Mario, ABELARDO 11/14/2019 I10 Essential (primary) hypertension Oliva Mraio NP 11/14/2019 Z79.4 prison (current) use of insul in Oliva Mario NP 11/14/2019 R80.9 Proteinuria, unspecified Oliva Mario NP Plan of Treatment 02/21/2020 - Oliva Mario NP* E11.65 Type 2 diabetes mellitus with hyperglycemia* New Medication:* Farxiga 5 mg - 1 by mouth every day * New Labs:* Hemoglobin A1c, Ordered: 02/21/20 * Glucose, Ordered: 02/21/20 * BMP W/Egfr, Scheduled: 03/10/20 * Comments:* 02/21/20- in office A1c= 8% (8.3%, 7.8%, 7%, 7.1%, 7.1%, 7.0%, 6.8%, 6.5%, 6.3%, 6.5%)Random BS= 235 - was drinking mixed drinks throughout night. Depressed about son's and pt's birthday. Meter downloaded and reviewed with patient- Fasting- 111-221 Has gained 5 lbs since last visithx: Jardiance was stopped by PCP due to concerns with renal function. However GFR >60. Current meds: Metformin 500 mg 1 tab po bid, Current insulin doses: Toujeo 24u qam and Humalog sliding scale TID- admits that he does use Humalog in morning if BS>150Discussed restarting SGLT-2- pt agrees- will Farxiga 5mg po qd. Encouraged increase fluid intake. Will recheck BMP in 3 weeks. RTO 1 month * Follow up:* Follow up in 1 month. FABY * E78.00 Pure hypercholesterolemia, unspecified* Comments:* Goal for LDL <100. Labs 9/6/19- chol= 140, trig= 99, HDL= 41, LDL= 79Current medication: Atorv astatin 40 mg daily. No recent labsContinue same * I10 Essential (primary) hypertension* Comments:* Reviewed low salt diet BP 128/80 * Z79.4 prison (current) use of insulin* Comments:* No dose adjustments today * R80.9 Proteinuria, unspecified* Comments:* Labs 10/23/18- Micro= 39.0- this has increased from last year Discussed at last visit restarting Lisinopril- pt was to discuss with PCPPer pt, PCP did not want to restart medication do to possible renal insufficiencyAgain would recommend low dose Lisinopril due to proteinuria Functional Status Description No Information Available Mental Status Description No Information Available Referrals Description No Information Available
--- OUTSIDE RECORDS SUMMARY | 2020-03-13 10:00 | CCD | Summary of Care ---
Author Author [facility] Organization [facility] Address Unknown Phone Unavailable Care Team Providers Care Outside Sales Representative Name Role Phone Emily Hidalgo MD PCP Reason for Visit * Reason Comments Follow-up Encounter Details Care Team Description Date Type Department Anthony Valera MD [address] [place] [id number] Diabetes mellitus due to underlying cond ition with ketoacidosis without coma, unspecified whether emt intermediate insulin use (Primary Dx); S/P gastric bypass; Anemia, unspecified type 01/17/2020 [facility]medicine [facility] at [address] [address] Allergies No Known Allergiesdocumented as of this encounter (statuses as of 01/17/2020) Medications End Date Status Medication Sig Dispensed Refills Start Date Active oxycodone-acetaminophen Take 1 tablet 0 (PERCOCET) 5-325 MG per by mouth tablet every 4 (four) hours as needed for Pain. Active ferrous gluconate once a day 5 (FERGON) 324 MG tablet 6 Active gemfibrozil (LOPID) 600 Take 600 mg 0 MG tablet by mouth Two 8 Times Daily Active metformin (GLUCOPHAGE-XR) daily 0 500 MG 24 hr tablet 8 Active TOUJEO SOLOSTAR 300 Inject 20 0 UNIT/ML concentrated Units into 8 pen the skin daily Active tizanidine (ZANAFLEX) 4 4 mg nightly 0 05/09/ 201 MG tablet 8 Active atorvastatin (LIPITOR) 40 Take 40 mg by 0 7/201 MG tablet mouth daily 8 Active atenolol (TENORMIN) 25 MG Take 25 mg by 0 02/0 tablet mouth daily 8 Active hydrochlorothiazide Take 12.5 mg 0 (HYDRODIURIL) 25 MG by mouth Two 8 tablet Times Daily Active pantoprazole (PROTONIX) Take by mouth 0 40 MG tablet daily 8 Active zolpidem (AMBIEN) 10 MG Take 10 mg by 0 tablet mouth nightly 8 documented as of this encounter (statuses as of 01/17/2020) Active Problems Problem Noted Date BMI 34.0-34.9,adult 12/15/2015 S/P gastric bypass 12/15/2015 Morbid obesity due to excess calories 07/25/2015 Encounter for nutrition evaluation prior to bariatric surgery 05/30/2015 Diabetes 05/20/2015 High blood pressure 05/20/2015 Anemia 05/20/2015 DJD (degenerative joint disease) 05/20/2015 documented as of this encounter (statuses as of 01/17/2020) Social History Date Tobacco Use Types Packs/Day Years Used Quit: 02/14/1993 Former Smoker 2 10 Smokeless Tobacco: Never Used Drinks/Week oz/Week Comments Alcohol Use No Sex Assigned at Date Recorded Not on file documented as of this encounter Last Filed Vital Signs Not on filedocumented in this encounter Progress Notes * Anthony Valera MD - 01/17/2020 1:15 PM EST CHIEF COMPLAINT: No chief complaint on file. RYGB [place] [address] Miller HISTORY OF PRESENT ILLNESS: The patient is a 59 y.o. male with previous RYGB per formed in November 2015 who presents for monitoring of weight loss and screening for possible medical complications and nutritional deficiencies. Pre-op weight 405lbs His last clinic visit was 11/2018- 273 lbs Weight today 290lbs He was recently admitted to the hospital for a month for a bladder infection, no w on oral antibiotics. He reports gaining >10lbs since being in the hospital and attributes it to "water weight". He reports his pant size fits the same and he has not changed his diet or exercise habits Of note, he is scheduled to have an EMG on Tuesday 7am for cervical neck pain t hat is limiting his daily life The patient's dietary lifestyle habits consist of 2 meals/snacks per day. The pa sara eats based on hunger. Portion size is approximately unknown oz per meal. The patient stops eating once feels satisfied . The patient eats approximately u nknown calories per day based on estimation. The patient is making good food c hoices. Typical foods he eats: Venison, peanut butter sandwiches, poweraid zero and wate r On Loyd fusion MVI 1x/day in the morning Reports having recent labs done by his PCP. Exercise routine: Yes Exercise frequency: frequently Exercise length: several minutes per session Patient Active Problem List Diagnosis Diabetes High blood pressure Anemia DJD (degenerative joint disease) Encounter for nutrition evaluation prior to bariatric surgery Morbid obesity due to excess calories BMI 34.0-34.9,adult S/P gastric bypass Current Outpatient Medications: atenolol (TENORMIN) 25 MG tablet, Take 25 mg by mouth daily , Disp: , Rf l: atorvastatin (LIPITOR) 40 MG tablet, Take 40 mg by mouth daily , Disp: , Rfl: ferrous gluconate (FERGON) 324 MG tablet, once a day, Disp: , Rfl: 5 gemfibrozil (LOPID) 600 MG tablet, Take 600 mg by mouth Two Times Daily , Disp: , Rfl: hydrochlorothiazide (HYDRODIURIL) 25 MG tablet, Take 12.5 mg by mouth Tw o Times Daily , Disp: , Rfl: metformin (GLUCOPHAGE-XR) 500 MG 24 hr tablet, daily, Disp: , Rfl: 0 oxycodone-acetaminophen (PERCOCET) 5-325 MG per tablet, Take 1 tablet by mouth every 4 (four) hours as needed for Pain., Disp: , Rfl: pantoprazole (PROTONIX) 40 MG tablet, Take by mouth daily , Disp: , Rfl: tizanidine (ZANAFLEX) 4 MG tablet, 4 mg nightly , Disp: , Rfl: TOUJOSE MIGUELO SOLOSTAR 300 UNIT/ML concentrated pen, Inject 20 Units into t he skin daily , Disp: , Rfl: zolpidem (AMBIEN) 10 MG tablet, Take 10 mg by mouth nightly , Disp: , Rf l: DM meds: 95u bid pre-operatively now still down to 20u daily Past Medical History: Diagnosis Date Anemia 11/2018 per Hem/Onc in [place] " bleeding from somewhere, unknown" per pt Diabetes mellitus DJD (degenerative joint disease) GERD (gastroesophageal reflux disease) Hyperlipidemia Hypertension Low back pain Sleep apnea Tendonitis R shoulder Past Surgical History: Procedure Laterality Date BONE MARROW BIOPSY 2018 for anemia of unknown etiology COLONOSCOPY MULTIPLE TOOTH EXTRACTIONS [place] LAP GASTRIC BYPASS/AMAURY-EN-Y N/A 12/15/2015 Procedure: LAPAROSCOPIC GASTRIC RESTRICTIVE Amaury-en-Y bypass; Surgeon: Kris Miller MD; Location: [facility]; Service: General; Laterality: N/A; Family History Problem Relation Age of Onset Diabetes Mother Heart disease Mother Hypertension Mother Diabetes Father Social History Socioeconomic History Marital status: Spouse name: Not on file Number of children: Not on file Years of education: Not on file Highest education level: Not on file Occupational History Not on file Social Needs Financial resource strain: Not on file Food insecurity Worry: Not on file Inability: Not on file Transportation needs Medical: Not on file Non-medical: Not on file Tobacco Use Smoking status: Former Smoker Packs/day: 2.00 Years: 10.00 Pack years: 20.00 Quit date: 02/14/1993 Years since quittin.9 Smokeless tobacco: Never Used Substance and Sexual Activity Alcohol use: No Drug use: No Sexual activity: Yes Partners: Female control/protection: None Lifestyle Physical activity Days per week: Not on file Minutes per session: Not on file Stress: Not on file Relationships Social connections Talks on phone: Not on file Gets together: Not on file Attends hoahaoism service: Not on file Active member of club or organization: Not on file Attends meetings of clubs or organizations: Not on file Relationship status: Not on file Intimate partner violence Fear of current or ex partner: Not on file Emotionally abused: Not on file Physically abused: Not on file Forced sexual activity: Not on file Other Topics Concern Not on file Social History Narrative Not on file REVIEW OF SYSTEMS: [Option: Pertinent items are noted in HPI. ] GENERAL: Denies fevers, chills or malaise. SKIN: Denies new rashes, sores. HEAD: Denies new headache, migraine. EYES: Denies any vision change, diploplia. RESPIRATORY: Denies cough, sputum, hemoptysis. CARDIAC: Denies chest pain, palpitations, dyspnea, orthopnea. GI: Denies nausea, vomiting, vomiting of blood, change in bowel habits. URINARY: Denies polyuria, dysuria, nocturia, hesitancy. MS: Denies new back pain or other joint pain. PHYSICAL EXAMINATION: There were no vitals taken for this visit. There is no height or weight on file to calculate BSA. Unable to assess due to telephone visit ASSESSMENT: The patient is doing fairly well. PLAN: The current diet and exercise regimens were reviewed in clinic, including protei n and average fluid intake. Recommendations for continued safe weight loss, hea lth and nutrition were discussed in detail. The patient was encouraged to contin ue diversifying the diet and to maintain and expand the exercise program. Specif ically: 1. Add more protein daily, >80g per day is the goal 2. Measure portions. Recommended loyd plate for more accurate measuring 3. Baritastic kevin 4. Minimize to 50 gr cho daily. 5. DEXA scan in office next visit 6. Nutrition labs ordered A return appointment will be scheduled in 6 months for his next medical weight l oss visit. Patient is encouraged to call the clinic with any questions or concerns. Patient demonstrates understanding, is amenable to the outlined plan, and there were no barriers to education today. ANTHONY VALERA MD Bariatric and Minimally Invasive Surgery [facility] [address] [facility], Physician's Office [facility], [address] [place] [address] Pager: [phone] This is a telephonic visit which was performed without the use of video technolo gy due to patient inability to connect with video. The patient was informed of t he risks including security breach, technological failure, inability to perform a physical exam which could delay or prevent an accurate diagnosis, and potentia l complications from treatment decisions rendered over a telephonic platform. Th e patient understands and consented to the use of a telephonic visit/telephone c all. Time spent on the telephonic visit today: 15 minutes documented in this encounter Nursing Notes * Tabitha Bailey RN - 01/17/2020 1:15 PM EST Paul/2015/DANIA 12/02/17 "Overall the patient feels well, he continues to undergo evaluation for unexplai cat anemia including bone marrow biopsy" Unable to reach pt at both #s listed. For telemed nursing process. documented in this encounter Plan of Treatment Health Maintenance Due Date Last Done Comments Hepatitis C Screening (B. 1960 4092-0027) MMR Vaccines (1 of 1 - 1963 Standard series) Varicella Vaccines (1 of 1963 2 - 2-dose childhood series) Pneumococcal Vaccine: 02/20/1968 Pediatrics (0 to 5 Years) and At-Risk Patients (6 to 64 Years) (1 of 1 - PPSV23) DTaP,Tdap,and Td Vaccines 1969 (1 - Tdap) HIV Screening 1975 Hepatitis B Vaccines (1 1981 of 3 - Risk 3-dose series) Influenza Vaccine 11/15/2019 Colon Cancer Screening 10 08/25/2025 08/26/2015 yrs Pneumococcal Vaccine: 65+ 2027 Years (1 of 1 - PPSV23) HIB Vaccines Aged Out No longer eligible based on patient's age to complete this topic Hepatitis A Vaccines Aged Out No longer eligibl e based on patient's age to complete this topic IPV Vaccines Aged Out No longer eligible based on patient's age to complete this topic documented as of this encounter Implants Device Identifier Shelf Expiration Date Model / Serial / L ot Implanted Type Area Manufactur er 09/13/2018 [id number] / / [id number] Stapler Seamguard Tennant 60 - [place], [id number] CORRINA Soriano Implanted: Qty: 2 on 12/15/2015 by + Kris Miller MD at [facility] 08/13/2018 [id number] / / [id number] Stapler Seamguard Tennant 60 - [place], [id number] CORRINA Soriano Implanted: Qty: 1 on 12/15/2015 by + Kris Miller MD at [facility] documented as of this encounter Results Not on filedocumented in this encounter Visit Diagnoses Diagnosis Diabetes mellitus due to underlying con dition with ketoacidosis without coma, unspecified whether correction insulin use - Primary S/P gastric bypass Bariatric surgery status Anemia, unspecified type documented in this encounter
--- OUTSIDE RECORDS SUMMARY | 2020-03-13 10:00 | CCD | Continuity of Care Document ---
Author Author [facility] Organization Unknown Address [address] [place] [address] Phone [phone] Care Team Providers Care Atmospheric Scientist Name Role Phone Emily Hidalgo M.D. AUTM [phone] Problems Active Problems Provider Date Neck pain [...] Sensory polyneuropathy Kristopher Cisneros M.D. Onset: 01/08/2020 Social History Type Date Description Comments Sex Unknown Tobacco Use Start: Unknown End: Unknown Patient is a former smoker Allergies, Adverse Reactions, Alerts Description No Known Drug Allergies Medications Description No Information Available Immunizations Description No Information Available Vital Signs Date Vital Result Comment 01/08/2020 8:58am BP Systolic 130 mmHg BP Diastolic 85 mmHg Heart Rate 80 /min Respiratory Rate 14 /min Height 76 inches 6'4" Weight 290.00 lb BMI (Body Mass Index) 35.3 kg/m2 [place] Body Weight 202 lb Results Description No Information Available Procedures Date Code Description Status 01/14/2020 18846 Nerve Conduction 9-10 Studies Co mpleted 01/14/2020 55838 Needle Electromyography Complete , Five Or More Muscles Studied Completed 01/14/2020 52374 Needle Electromyography Complete , Five Or More Muscles Studied Completed Medical Devices Description No Information Available Encounters Type Date Location Provider Dx Diagnosis Office Visit 01/08/2020 8:30a [facility] René Pink M54.2 Cervicalgia M54.81 Occipital neuralgia M54.5 Low back pain M43.02 Spondylolysis, cervical gail on M43.06 Spondylolysis, lumbar region R20.2 Paresthesia of skin M54.12 Radiculopathy, cervical gail on E11.42 Type 2 diabetes mellitus wit h diabetic polyneuropathy Assessments Date Code Description Provider 01/14/2020 G56.03 Carpal tunnel syndrome, bilatera l upper limbs Kristopher Cisneros M.D. 01/14/2020 G60.9 Hereditary and idiopathic neurop athy, unspecified Kristopher Cisneros M.D. 01/08/2020 M54.2 Cervicalgia Kristopher [...] polyneuropathy Kristopher Cisneros M.D. Plan of Treatment Future Appointment(s):* 02/22/2020 9:15 am - Kristopher Cisneros M.D. at [facility] Functional Status Description No Information Available Mental Status Description No Information Available Referrals Refer to Dr Reason for Referral Status Appt Date Kristopher Cisneros M.D. Created [facility] [address] [place] [address] [phone]
--- OUTSIDE RECORDS SUMMARY | 2020-03-13 10:00 | CCD | Continuity of Care Document ---
Author Author [facility] Organization Unknown Address [address] [place] [address] Phone [phone] Care Team Providers Care Assembler Utility Buildings Name Role Phone Emily Hidalgo M.D. AUTM [phone] Problems Active Problems Provider Date Neck pain [...] lb BMI (Body Mass Index) 35.3 kg/m2 [place] Body Weight 202 lb Results Description No Information Available Procedures Date Code Description Status 01/19/2020 87495 MRI Spine Cervical W/O Contrast Completed 01/19/2020 96810 MRI Spine Cervical W/O Contrast Completed 01/19/2020 13279 MRI Brain W/O Contrast Completed 01/19/2020 19888 MRI Brain W/O Contrast Completed 01/14/2020 20111 Nerve Conduction 9-10 Studies Co mpleted 01/14/2020 93816 Needle Electromyography Complete , Five Or More Muscles Studied Completed 01/14/2020 81579 Needle Electromyography Complete , Five Or More Muscles Studied Completed Medical Devices Description No Information Available Encounters Type Date Location Provider Dx Diagnosis Office Visit 01/08/2020 8:30a Main office - [place] René Pink M54.2 Cervicalgia M54.81 Occipital neuralgia M54.5 Low back pain M43.02 Spondylolysis, cervical gail on M43.06 Spondylolysis, lumbar region R20.2 Paresthesia of skin M54.12 Radiculopathy, cervical gail on E11.42 Type 2 diabetes mellitus wit h diabetic polyneuropathy Assessments Date Code Description Provider 01/19/2020 M54.81 Occipital neuralgia Sha ArturOrin vickers 01/19/2020 M54.81 Occipital neuralgia MRI 01/19/2020 M54.2 Cervicalgia Sha Artur, MJamiD Jami 01/19/2020 M54.2 Cervicalgia MRI 01/19/2020 M43.02 Spondylolysis, cervical region A bdul Artur, M.DJami 01/19/2020 M43.02 Spondylolysis, cervical region M RI 01/19/2020 M54.12 Radiculopathy, cervical region A bdul Artur, M.DJami 01/19/2020 M54.12 Radiculopathy, cervical region M RI 01/14/2020 G56.03 Carpal tunnel syndrome, bilatera l upper limbs Kristopher Cisneros M.D. 01/14/2020 G60.9 Hereditary and idiopathic neurop athy, unspecified Kristopher Cisneros M.D. 01/08/2020 M54.2 Cervicalgia Kristopher iCsneros M.D. 01/08/2020 M54.81 Occipital neuralgia Kristopher Cisneros M.D. 01/08/2020 M54.5 Low back pain Kristopher Cisneros M.D. 01/08/2020 M43.02 Spondylolysis, cervical region M renate Cisneros M.D. 01/08/2020 M43.06 Spondylolysis, lumbar region Ирина Cisneros M.D. 01/08/2020 R20.2 Paresthesia of skin Kristopher Cisneros M.D. 01/08/2020 M54.12 Radiculopathy, cervical region M renate Cisneros M.D. 01/08/2020 E11.42 Type 2 diabetes mellitus with di abetic polyneuropathy Kristopher Cisneros M.D. Plan of Treatment Future Appointment(s):* 02/22/2020 9:15 am - Kristopher Cisneros M.D. at Main office - [place] Functional Status Description No Information Available Mental Status Description No Information Available Referrals Refer to Reason for Referral Status Appt Date Kristopher Cisneros M.D. Created [facility] [address] [place] [address] [phone]
--- OUTSIDE RECORDS SUMMARY | 2020-03-13 10:00 | CCD | Continuity of Care Document ---
Author [facility] M.D. Organization Unknown Address [address] [place] [address] Phone [phone] Care Team Providers Care Social Media Campaign Manager Name Role Phone Emily Hidalgo M.D. AUTM [phone] Problems Active Problems Provider Date Neck pain [...] lb BMI (Body Mass Index) 35.3 kg/m2 [place] Body Weight 202 lb Results Description No Information Available Procedures Description No Information Available Medical Devices Description No Information Available Encounters Type Date Location Provider Dx Diagnosis Office Visit 01/08/2020 8:30a Main office - [place] René Pink M54.2 Cervicalgia M54.81 Occipital neuralgia M54.5 Low back pain M43.02 Spondylolysis, cervical gail on M43.06 Spondylolysis, lumbar region R20.2 Paresthesia of skin M54.12 Radiculopathy, cervical gail on E11.42 Type 2 diabetes mellitus wit h diabetic polyneuropathy Assessments Date Code Description Provider 01/08/2020 M54.2 Cervicalgia Kristopher Cisneros M.D. 01/08/2020 [...] Cisneros M.D. Plan of Treatment Future Appointment(s):* 01/19/2020 8:45 am - MRI at [facility] * 01/19/2020 8:00 am - MRI at [facility] * 02/22/2020 9:15 am - Kristopher Cisneros M.D. at [facility] Functional Status Description No Information Available Mental Status Description No Information Available Referrals Description No Information Available
--- OUTSIDE RECORDS SUMMARY | 2020-03-13 10:00 | CCD | Continuity of Care Document ---
Author [facility] M.D. Organization Unknown Address [address] [place] [address] Phone [phone] Care Team Providers Care National Van Owner Operator Name Role Phone Emily Hidalgo M.D. AUTM [phone] Problems Active Problems Provider Date Neck pain [...] lb BMI (Body Mass Index) 35.3 kg/m2 [place] Body Weight 202 lb Results Description No Information Available Procedures Description No Information Available Medical Devices Description No Information Available Encounters Type Date Location Provider Dx Diagnosis Office Visit 01/08/2020 8:30a Main office - [place] René Pink M54.2 Cervicalgia M54.81 Occipital neuralgia [...] 9:15 am - Kristopher Cisneros M.D. at [facility] * 01/14/2020 9:20 am - Kristopher Cisneros M.D. at [facility] Functional Status Description No Information Available Mental Status Description No Information Available Referrals Description No Information Available
--- OUTSIDE RECORDS SUMMARY | 2020-03-13 10:00 | CCD | Continuity of Care Document ---
Author [facility] M.D. Organization Unknown Address [address] [place] [address] Phone [phone] Care Team Providers Care Conduit Installer Name Role Phone Emily Hidalgo M.D. AUTM [phone] Problems Active Problems Provider Date Neck pain [...] lb BMI (Body Mass Index) 35.3 kg/m2 [place] Body Weight 202 lb Results Description No Information Available Procedures Description No Information Available Medical Devices Description No Information Available Encounters Type Date Location Provider Dx Diagnosis Office Visit 01/08/2020 8:30a Main office - [place] René Pink M54.2 Cervicalgia M54.81 Occipital neuralgia [...] Appointment(s):* 01/19/2020 8:45 am - MRI at [facility] * 01/19/2020 8:00 am - MRI at [facility] * 02/22/2020 9:15 am - Kristopher Cisneros M.D. at [facility] Functional Status Description No Information Available Mental Status Description No Information Available Referrals Refer to Dr Reason for Referral Status Appt Kristopher Loredo M.D. Created [facility] [address] [place] [address] [phone]
--- OUTSIDE RECORDS SUMMARY | 2020-03-13 10:00 | CCD | Continuity of Care Document ---
Author Author [facility] Organization Unknown Address [address] [place] [address] Phone [phone] Care Team Providers Care Gospel Worker Name Role Phone Emily Hidalgo M.D. AUTM [phone] Problems Active Problems Provider Date Neck pain [...] lb BMI (Body Mass Index) 35.3 kg/m2 [place] Body Weight 202 lb Results Description No Information Available Procedures Date Code Description Status 01/14/2020 20141 Nerve Conduction 9-10 Studies Co mpleted 01/14/2020 89572 Needle Electromyography Complete , Five Or More Muscles Studied Completed 01/14/2020 75911 Needle Electromyography Complete , Five Or More Muscles Studied Completed Medical Devices Description No Information Available Encounters Type Date Location Provider Dx Diagnosis Office Visit 01/08/2020 8:30a [facility] René Pink M54.2 Cervicalgia M54.81 Occipital [...] 9:15 am - Kristopher Cisneros M.D. at [facility] Functional Status Description No Information Available Mental Status Description No Information Available Referrals Refer to Dr Reason for Referral Status Appt Date Kristopher Cisneros M.D. Created [facility] [address] [place] [address] [phone]
--- OUTSIDE RECORDS SUMMARY | 2020-03-13 10:00 | CCD | Continuity of Care Document ---
Author Christoph Hand M.D. Organization Unknown Address [address] [place] [id number] Phone [phone] Care Team Providers Care Consumer Loan Underwriter Name Role Phone Emily Hidalgo M.D. AUTM [phone] Problems Active Problems Provider Date Neck pain [...] lb BMI (Body Mass Index) 35.3 kg/m2 [place] Body Weight 202 lb Results Description No Information Available Procedures Date Code Description Status 01/19/2020 00753 MRI Spine Cervical W/O Contrast Completed 01/19/2020 84257 MRI Spine Cervical W/O Contrast Completed 01/19/2020 68379 MRI Brain W/O Contrast Completed 01/19/2020 80966 MRI Brain W/O Contrast Completed 01/14/2020 88976 Nerve Conduction 9-10 Studies Co mpleted 01/14/2020 23371 Needle Electromyography Complete , Five Or More Muscles Studied Completed 01/14/2020 35250 Needle Electromyography Complete , Five Or More Muscles Studied Completed Medical Devices Description No Information Available Encounters Type Date Location Provider Dx Diagnosis Office Visit 01/08/2020 8:30a Main office - [place] René Pink M54.2 Cervicalgia M54.81 Occipital neuralgia M54.5 Low back pain M43.02 Spondylolysis, cervical gail on M43.06 Spondylolysis, lumbar region R20.2 Paresthesia of skin M54.12 Radiculopathy, cervical gail on E11.42 Type 2 diabetes mellitus wit h diabetic polyneuropathy Assessments Date Code Description Provider 01/19/2020 M54.81 Occipital neuralgia Sha Artur, RenéDJami 01/19/2020 M54.81 Occipital neuralgia MRI 01/19/2020 M54.2 Cervicalgia Sha Artur, MJamiD Jami 01/19/2020 M54.2 Cervicalgia MRI 01/19/2020 M43.02 Spondylolysis, cervical region A bdul Artur, M.D. 01/19/2020 M43.02 Spondylolysis, cervical region M [...] Kristopher Cisneros M.D. at Main office - [place] Functional Status Description No Information Available Mental Status Description No Information Available Referrals Refer to Reason for Referral Status Appt Date Kristopher Cisneros M.D. Created [facility] [address] [place] [address] [phone]
--- OUTSIDE RECORDS SUMMARY | 2020-03-13 10:01 | CCD ---
Author Author [facility] Organization [facility] Address Unknown Phone Unavailable Care Team Providers Care Offal Icer Poultry Name Role Phone NRI, [phone] Unavailable Unavailable COOK, B BEATRICE COTTON PICKER OPERATOR Unavailable Unavailable COOK, B BEATRICE COTTON PICKER OPERATOR Unavailable Unavailable COOK, B BEATRICE COTTON PICKER OPERATOR Unavailable Unavailable COOK, B BEATRICE COTTON PICKER OPERATOR Unavailable Unavailable COOK, B BEATRICE COTTON PICKER OPERATOR Unavailable Unavailable COOK, B BEATRICE COTTON PICKER OPERATOR Unavailable Unavailable COOK, B BEATRICE COTTON PICKER OPERATOR Unavailable Unavailable COOK, B BEATRICE COTTON PICKER OPERATOR Unavailable Unavailable COOK, B BEATRICE COTTON PICKER OPERATOR Unavailable Unavailable COOK, B BEATRICE COTTON PICKER OPERATOR Unavailable Unavailable COOK, B BEATRICE COTTON PICKER OPERATOR Unavailable Unavailable COOK, B BEATRICE COTTON PICKER OPERATOR Unavailable Unavailable COOK, B BEATRICE COTTON PICKER OPERATOR Unavailable Unavailable COOK, B BEATRICE COTTON PICKER OPERATOR Unavailable Unavailable COOK, B BEATRICE COTTON PICKER OPERATOR Unavailable Unavailable COOK, B BEATRICE COTTON PICKER OPERATOR Unavailable Unavailable COOK, B BEATRICE COTTON PICKER OPERATOR Unavailable Unavailable COOK, B BEATRICE COTTON PICKER OPERATOR Unavailable Unavailable COOK, B BEATRICE COTTON PICKER OPERATOR Unavailable Unavailable COOK, B BEATRICE COTTON PICKER OPERATOR Unavailable Unavailable COOK, B BEATRICE COTTON PICKER OPERATOR Unavailable Unavailable COOK, B BEATRICE COTTON PICKER OPERATOR Unavailable Unavailable COOK, B BEATRICE COTTON PICKER OPERATOR Unavailable Unavailable COOK, B BEATRICE COTTON PICKER OPERATOR Unavailable Unavailable COOK, B BEATRICE COTTON PICKER OPERATOR Unavailable Unavailable COOK, B BEATRICE COTTON PICKER OPERATOR Unavailable Unavailable COOK, B BEATRICE COTTON PICKER OPERATOR Unavailable Unavailable COOK, B BEATRICE COTTON PICKER OPERATOR Unavailable Unavailable COOK, B BEATRICE COTTON PICKER OPERATOR Unavailable Unavailable COOK, B BEATRICE COTTON PICKER OPERATOR Unavailable Unavailable COOK, B BEATRICE COTTON PICKER OPERATOR Unavailable Unavailable COOK, B BEATRICE COTTON PICKER OPERATOR Unavailable Unavailable COOK, B BEATRICE COTTON PICKER OPERATOR Unavailable Unavailable COOK, B BEATRICE COTTON PICKER OPERATOR Unavailable Unavailable COOK, B BEATRICE COTTON PICKER OPERATOR Unavailable Unavailable COOK, B BEATRICE COTTON PICKER OPERATOR Unavailable Unavailable COOK, B BEATRICE COTTON PICKER OPERATOR Unavailable Unavailable COOK, B BEATRICE COTTON PICKER OPERATOR Unavailable Unavailable COOK, B BEATRICE COTTON PICKER OPERATOR Unavailable Unavailable COOK, B BEATRICE COTTON PICKER OPERATOR Unavailable Unavailable COOK, B BEATRICE COTTON PICKER OPERATOR Unavailable Unavailable COOK, B BEATRICE COTTON PICKER OPERATOR Unavailable Unavailable COOK, B BEATRICE COTTON PICKER OPERATOR Unavailable Unavailable COOK, B BEATRICE COTTON PICKER OPERATOR Unavailable Unavailable COOK, B BEATRICE COTTON PICKER OPERATOR Unavailable Unavailable COOK, B BEATRICE COTTON PICKER OPERATOR Unavailable Unavailable COOK, B BEATRICE COTTON PICKER OPERATOR Unavailable Unavailable COOK, B BEATRICE COTTON PICKER OPERATOR Unavailable Unavailable COOK, B BEATRICE COTTON PICKER OPERATOR Unavailable Unavailable COOK, B BEATRICE COTTON PICKER OPERATOR Unavailable Unavailable COOK, B BEATRICE COTTON PICKER OPERATOR Unavailable Unavailable COOK, B BEATRICE COTTON PICKER OPERATOR Unavailable Unavailable COOK, B BEATRICE COTTON PICKER OPERATOR Unavailable Unavailable COOK, B BEATRICE COTTON PICKER OPERATOR Unavailable Unavailable COOK, B BEATRICE COTTON PICKER OPERATOR Unavailable Unavailable COOK, B BEATRICE COTTON PICKER OPERATOR Unavailable Unavailable COOK, B BEATRICE COTTON PICKER OPERATOR Unavailable Unavailable COOK, B BEATRICE COTTON PICKER OPERATOR Unavailable Unavailable COOK, B BEATRICE COTTON PICKER OPERATOR Unavailable Unavailable COOK, B BEATRICE COTTON PICKER OPERATOR Unavailable Unavailable COOK, B BEATRICE COTTON PICKER OPERATOR Unavailable Unavailable COOK, B BEATRICE COTTON PICKER OPERATOR Unavailable Unavailable COOK, B BEATRICE COTTON PICKER OPERATOR Unavailable Unavailable COOK, B BEATRICE COTTON PICKER OPERATOR Unavailable Unavailable Rios, Marilynn COTTON PICKER OPERATOR Unavailable Unavailable Rios, Marilynn COTTON PICKER OPERATOR Unavailable Unavailable Rios, Marilynn COTTON PICKER OPERATOR Unavailable Unavailable Rios, Marilynn COTTON PICKER OPERATOR Unavailable Unavailable Rios, Marilynn COTTON PICKER OPERATOR Unavailable Unavailable Rios, Marilynn COTTON PICKER OPERATOR Unavailable Unavailable Rios, Marilynn COTTON PICKER OPERATOR Unavailable Unavailable Rios, Marilynn COTTON PICKER OPERATOR Unavailable Unavailable Rios, Marilynn COTTON PICKER OPERATOR Unavailable Unavailable Rios, Marilynn COTTON PICKER OPERATOR Unavailable Unavailable Rios, Marilynn COTTON PICKER OPERATOR Unavailable Unavailable Rios, Marilynn COTTON PICKER OPERATOR Unavailable Unavailable Rois, Marilynn COTTON PICKER OPERATOR Unavailable Unavailable Rios, Marilynn COTTON PICKER OPERATOR Unavailable Unavailable Rios, Marilynn COTTON PICKER OPERATOR Unavailable Unavailable Rios, Marilynn COTTON PICKER OPERATOR Unavailable Unavailable Rios, Marilynn COTTON PICKER OPERATOR Unavailable Unavailable Rios, Marilynn COTTON PICKER OPERATOR Unavailable Unavailable Rios, Marilynn COTTON PICKER OPERATOR Unavailable Unavailable Rios, Marilynn COTTON PICKER OPERATOR Unavailable Unavailable Rios, Marilynn COTTON PICKER OPERATOR Unavailable Unavailable Rios, Marilynn COTTON PICKER OPERATOR Unavailable Unavailable Rios, Marilynn COTTON PICKER OPERATOR Unavailable Unavailable Rois, Marilynn COTTON PICKER OPERATOR Unavailable Unavailable Rios, Marilynn COTTON PICKER OPERATOR Unavailable Unavailable Rios, Marilynn COTTON PICKER OPERATOR Unavailable Unavailable Rios, Marilynn COTTON PICKER OPERATOR Unavailable Unavailable Rios, Marilynn COTTON PICKER OPERATOR Unavailable Unavailable Rios, Marilynn COTTON PICKER OPERATOR Unavailable Unavailable Rios, Marilynn COTTON PICKER OPERATOR Unavailable Unavailable Rios, Marilynn COTTON PICKER OPERATOR Unavailable Unavailable Rios, Marilynn COTTON PICKER OPERATOR Unavailable Unavailable Rios, Marilynn COTTON PICKER OPERATOR Unavailable Unavailable Rios, Marilynn COTTON PICKER OPERATOR Unavailable Unavailable Rios, Marilynn COTTON PICKER OPERATOR Unavailable Unavailable Rios, Marilynn COTTON PICKER OPERATOR Unavailable Unavailable Rios, Marilynn COTTON PICKER OPERATOR Unavailable Unavailable Rios, Marilynn COTTON PICKER OPERATOR Unavailable Unavailable Rios, Marilynn COTTON PICKER OPERATOR Unavailable Unavailable Rios, Marilynn COTTON PICKER OPERATOR Unavailable Unavailable Rios, Marilynn COTTON PICKER OPERATOR Unavailable Unavailable Rios, Marilynn COTTON PICKER OPERATOR Unavailable Unavailable Rios, Marilynn COTTON PICKER OPERATOR Unavailable Unavailable Rios, Marilynn COTTON PICKER OPERATOR Unavailable Unavailable Rios, Marilynn COTTON PICKER OPERATOR Unavailable Unavailable Rios, Marilynn COTTON PICKER OPERATOR Unavailable Unavailable Rios, Marilynn COTTON PICKER OPERATOR Unavailable Unavailable Rios, Marilynn COTTON PICKER OPERATOR Unavailable Unavailable Rios, Marilynn COTTON PICKER OPERATOR Unavailable Unavailable Rios, Marilynn COTTON PICKER OPERATOR Unavailable Unavailable Rios, Marilynn COTTON PICKER OPERATOR Unavailable Unavailable Rios, Marilynn COTTON PICKER OPERATOR Unavailable Unavailable Rios, Marilynn COTTON PICKER OPERATOR Unavailable Unavailable Rios, Marilynn COTTON PICKER OPERATOR Unavailable Unavailable Rios, Marilynn COTTON PICKER OPERATOR Unavailable Unavailable Rios, Marilynn COTTON PICKER OPERATOR Unavailable Unavailable Rios, Marilynn COTTON PICKER OPERATOR Unavailable Unavailable Rios, Marilynn COTTON PICKER OPERATOR Unavailable Unavailable Rios, Marilynn COTTON PICKER OPERATOR Unavailable Unavailable Rios, Marilynn COTTON PICKER OPERATOR Unavailable Unavailable Rios, Marilynn COTTON PICKER OPERATOR Unavailable Unavailable Rios, Marilynn COTTON PICKER OPERATOR Unavailable Unavailable Rios, Marilynn COTTON PICKER OPERATOR Unavailable Unavailable Rios, Marilynn COTTON PICKER OPERATOR Unavailable Unavailable Rios, Marilynn COTTON PICKER OPERATOR Unavailable Unavailable Rios, Marilynn COTTON PICKER OPERATOR Unavailable Unavailable Rios, Marilynn COTTON PICKER OPERATOR Unavailable Unavailable Rios, Marilynn COTTON PICKER OPERATOR Unavailable Unavailable RABACH, A ANTHONY Unavailable Unavailable SHARONDA, EDY COTTON PICKER OPERATOR Unavailable Unavailable SHARONDA, EDY COTTON PICKER OPERATOR Unavailable Unavailable SHARONDA, EDY COTTON PICKER OPERATOR Unavailable Unavailable SHARONDA, EDY COTTON PICKER OPERATOR Unavailable Unavailable SHARONDA, EDY COTTON PICKER OPERATOR Unavailable Unavailable SHARONDA, EDY COTTON PICKER OPERATOR Unavailable Unavailable SHARONDA, EDY COTTON PICKER OPERATOR Unavailable Unavailable SHARONDA, EDY COTTON PICKER OPERATOR Unavailable Unavailable SHARONDA, EDY COTTON PICKER OPERATOR Unavailable Unavailable SHARONDA, EDY COTTON PICKER OPERATOR Unavailable Unavailable SHARONDA, EDY COTTON PICKER OPERATOR Unavailable Unavailable SHARONDA, EDY COTTON PICKER OPERATOR Unavailable Unavailable SHARONDA, EDY COTTON PICKER OPERATOR Unavailable Unavailable SHARONDA, EDY COTTON PICKER OPERATOR Unavailable Unavailable SHARONDA, EDY COTTON PICKER OPERATOR Unavailable Unavailable SHARONDA, EDY COTTON PICKER OPERATOR Unavailable Unavailable SHARONDA, EDY COTTON PICKER OPERATOR Unavailable Unavailable SHARONDA, EDY COTTON PICKER OPERATOR Unavailable Unavailable SHARONDA, EDY COTTON PICKER OPERATOR Unavailable Unavailable SHARONDA, EDY COTTON PICKER OPERATOR Unavailable Unavailable SHARONDA, EDY COTTON PICKER OPERATOR Unavailable Unavailable SHARONDA, EDY COTTON PICKER OPERATOR Unavailable Unavailable SHARONDA, EDY COTTON PICKER OPERATOR Unavailable Unavailable SHARONDA, EDY COTTON PICKER OPERATOR Unavailable Unavailable SHARONDA, EDY COTTON PICKER OPERATOR Unavailable Unavailable SHARONDA, EDY COTTON PICKER OPERATOR Unavailable Unavailable SHARONDA, EDY COTTON PICKER OPERATOR Unavailable Unavailable SHARONDA, EDY COTTON PICKER OPERATOR Unavailable Unavailable SHARONDA, EDY COTTON PICKER OPERATOR Unavailable Unavailable SHARONDA, EDY COTTON PICKER OPERATOR Unavailable Unavailable SHARONDA, EDY COTTON PICKER OPERATOR Unavailable Unavailable SHARONDA, EDY COTTON PICKER OPERATOR Unavailable Unavailable SHARONDA, EDY COTTON PICKER OPERATOR Unavailable Unavailable SHARONDA, EDY COTTON PICKER OPERATOR Unavailable Unavailable SHARONDA, EDY COTTON PICKER OPERATOR Unavailable Unavailable SHARONDA, EDY COTTON PICKER OPERATOR Unavailable Unavailable SHARONDA, EDY COTTON PICKER OPERATOR Unavailable Unavailable SHARONDA, EDY COTTON PICKER OPERATOR Unavailable Unavailable SHARONDA, EDY COTTON PICKER OPERATOR Unavailable Unavailable SHARONDA, EDY COTTON PICKER OPERATOR Unavailable Unavailable SHARONDA, EDY COTTON PICKER OPERATOR Unavailable Unavailable Kristopher Cisneros MD Unavailable Unavailable Kristopher Cisneros MD Unavailable Unavailable Kristopher Cisneros MD Unavailable Unavailable Kristopher Cisneros MD Unavailable Unavailable Kristopher Cisneros MD Unavailable Unavailable Kristopher Cisneros MD Unavailable Unavailable Kristopher Cisneros MD Unavailable Unavailable Kristopher Cisneros MD Unavailable Unavailable Kristopher Cisneros MD Unavailable Unavailable Kristopher Cisneros MD Unavailable Unavailable Kristopher Cisneros MD Unavailable Unavailable Kristopher Cisneros MD Unavailable Unavailable Kristopher Cisneros MD Unavailable Unavailable Kristopher Cisneros MD Unavailable Unavailable Kristopher Cisneros MD Unavailable Unavailable Kristopher Cisneros MD Unavailable Unavailable Kristopher Cisneros MD Unavailable Unavailable Kristopher Cisneros MD Unavailable Unavailable Kristopher Cisneros MD Unavailable Unavailable Kristopher Cisneros MD Unavailable Unavailable Kristopher Cisneros MD Unavailable Unavailable Kristopher Cisneros MD Unavailable Unavailable Kristopher Cisneros MD Unavailable Unavailable Kristopher Cisneros MD Unavailable Unavailable Kristopher Cisneros MD Unavailable Unavailable Kristopher Cisneros MD Unavailable Unavailable Kristopher Cisneros MD Unavailable Unavailable Kristopher Cisneros MD Unavailable Unavailable Kristopher Cisneros MD Unavailable Unavailable Kristopher Cisneros MD Unavailable Unavailable Kristopher Cisneros MD Unavailable Unavailable Kristopher Cisneros MD Unavailable Unavailable Kristopher Cisneros MD Unavailable Unavailable Kristopher Cisneros MD Unavailable Unavailable Kristopher Cisneros MD Unavailable Unavailable Kristopher Cisneros MD Unavailable Unavailable Kristopher Cisneros MD Unavailable Unavailable Kristopher Cisneros MD Unavailable Unavailable Kristopher Cisneros MD Unavailable Unavailable Ali, Kristopher MD Unavailable Unavailable Ali, Kristopher MD Unavailable Unavailable Ali, Kristopher MD Unavailable Unavailable Ali, Kristopher MD Unavailable Unavailable Ali, Kristopher MD Unavailable Unavailable Ali, Kristopher MD Unavailable Unavailable Ali, Kristopher MD Unavailable Unavailable Ali, Kristopher MD Unavailable Unavailable Ali, Kristopher MD Unavailable Unavailable Ali, Kristopher MD Unavailable Unavailable Re-disclosure Warning The records that you are about to access may contain information from federally-assisted alcohol or drug abuse programs. If such information is present, then the following federally mandated warning applies: This information has been disclosed to you from records protected by federal confidentiality rules (42 CFR part 2). The federal rules prohibit you from making any further disclosure of this information unless further disclosure is expressly permitted by the written consent of the person to whom it pertains or as otherwise permitted by 42 CFR part 2. A general authorization for the release of medical or other information is NOT sufficient for this purpose. The Federal rules restrict any use of the information to criminally investigate or prosecute any alcohol or drug abuse patient.The records that you are about to access may contain highly sensitive health information, the redisclosure of which is protected by Article 27-F of the [facility] Public Health law. If you continue you may have access to information: Regarding HIV / AIDS; Provided by facilities licensed or operated by the [facility] Office of Mental Health; or Provided by the [facility] Office for People With Developmental Disabilities. If such information is present, then the following [facility] mandated warning applies: This information has been disclosed to you from confidential records which are protected by state law. State law prohibits you from making any further disclosure of this information without the specific written consent of the person to whom it pertains, or as otherwise permitted by law. Any unauthorized further disclosure in violation of state law may result in a fine or senior living sentence or both. A general authorization for the release of medical or other information is NOT sufficient authorization for further disc losure. Allergies and Adverse Reactions Type Description Substance Reaction Status Data Source(s ) Drug Class NO KNOWN ALLERGIES NO KNOWN [facility] Family History Family Member Name Family Member Gender Family Member Status Date o f Status Description Data Source(s) Unknown Unknown Problem [facility] ([facility] Unknown Unknown Problem [facility] ([facility] Unknown Unknown Problem [facility] ([facility] Unknown Unknown Problem [facility] ([facility]) Unknown Unknown Problem [facility] ([facility]) Unknown Male Problem [facility] ([facility] Unknown Male Problem [facility] ([facility]) Encounters Encounter Providers Location Date Indications Data Source(s ) Outpatient Attender: ANTHONY VALERA 07/17/2020 12:00:00 AM [facility] Outpatient Attender: Kristopher Cisneros MD Main office - [place] 02/22/2020 11:45:00 AM EST [facility] ([facility] Outpatient Attender: BEATRICE FANG NP Physical Therapy 02/21/2020 0 2:45:00 PM EST [facility] ([facility]) Outpatient Attender: ANTHONY VALERA 01/18/2020 12:00:00 AM [facility] Outpatient Attender: ANTHONY VALERA [id number] 01/17/2020 12:00:00 AM [facility] Outpatient Attender: Kristopher Cisneros MD Main office - [place] 01/08/2020 07:30:00 AM EST [facility] ([facility]) Outpatient Attender: EDY MCDONOUGH NP 01/02/2020 12:00:0 0 AM [facility] Outpatient Attender: BEATRICE FANG NP Physical Therapy 11/14/2019 0 8:45:00 AM EDT [facility] ([facility]) Outpatient Attender: Marilynn Rios NP ADULT PC 07/24/2019 07:38:20 PM EDT [facility] Outpatient Referrer: Bulmaro HOOVER 05/20/2019 07:03:00 AM EDT [facility] Outpatient Attender: BEATRICE FANG NP Physical Therapy 05/16/2019 0 8:45:00 AM EDT [facility] ([facility]) Medications Medication Brand Name Start Date Product Form Dose Route Admi nistrative Instructions Pharmacy Instructions Status Indications Reaction Description Data Source(s) 5 mg 02/29/2020 12:00:00 AM EST tablet 30 TAKE ONE TABLET BY MOUTH AT BEDTIME MAXIMUM DAILY DOSE = 1 TAKE ONE TABLET BY MOUTH AT BEDTIME MAXI MUM DAILY DOSE = 1 SOLD: 03/01/2020 [facility] meloxicam 7.5 MG Oral Tablet MELOXICAM 02/29/2020 12:00:00 AM EST tabl et 60 TAKE ONE TABLET BY MOUTH TWICE A DAY TAKE ONE TABLET BY MOUTH TWICE A DAY SOLD: 03/01/2020 [facility] 5-325 mg 02/29/2020 12:00:00 AM EST tablet 30 TAKE ONE TABLET BY MOUTH AT BEDTIME MAXIMUM DAILY DOSE = 1 TAKE ONE TABLET BY MOUTH AT BEDTIME MAXI MUM DAILY DOSE = 1 SOLD: 03/01/2020 [facility] 600 mg 02/24/2020 12:00:00 AM EST tablet 180 TAKE ONE TABLET BY MOUTH TWICE A DAY TAKE ONE TABLET BY MOUTH TWICE A DAY SOLD: 02/25/2020 [facility] atorvastatin 40 MG Oral Tablet ATORVASTATIN CALCIUM 02/24/2020 1 2:00:00 AM EST tablet 90 TAKE ONE TABLET BY MOUTH EVERY D AY TAKE ONE TABLET BY MOUTH EVERY DAY SOLD: 02/25/2020 [facility] tizanidine 4 MG Oral Tablet TIZANIDINE HCL 02/23/2020 12:00:00 AM EST tablet 90 TAKE 1/2 TO 1 TABLET BY MOUTH THREE TIME S A DAY NEEDED FOR NECK AND BACK PAIN MAXIMUM DAILY DOSE = 3 TAKE 1/2 TO 1 TABLET BY MOUTH THREE TIME S A DAY NEEDED FOR NECK AND BACK PAIN MAXIMUM DAILY DOSE = 3 SOLD: 02/25/2020 [facility] 5 mg 02/22/2020 12:00:00 AM EST tablet 30 TAKE ONE TABLET BY MOUTH EVERY DAY TAKE ONE TABLET BY MOUTH EVERY DAY SOLD: 02/23/2020 [facility] tizanidine 4 MG Oral Tablet Tizanidine HCL 02/22/2020 12:00:00 AM EST ORAL active [facility] ([facility]) dapagliflozin 5 MG Oral Tablet [Farxiga] Farxiga 02/21/2020 12:00: 00 AM EST ORAL active [facility] ([facility] 5 mg 02/06/2020 12:00:00 AM EST tablet 90 TAKE ONE TABLET BY MOUTH EVERY DAY TAKE ONE TABLET BY MOUTH EVERY DAY SOLD: 02/11/2020 [facility] 20 mg 02/02/2020 12:00:00 AM EST capsule,delayed release (DR/EC) 180 TAKE ONE CAPSULE BY MOUTH TWICE A DAY TAKE ONE CAPSULE BY MOUTH TWICE A DAY SOLD: 02/05/2020 [facility] 5-325 mg 01/31/2020 12:00:00 AM EST tablet 30 TAKE ONE TABLET BY MOUTH AT BEDTIME MAXIMUM DAILY DOSE = 1 TABLET TAKE ONE TABLET BY MOUTH AT BEDTIME MAXIMUM DAILY DOSE = 1 TABLET SOLD: 01/31/2020 [facility] 5 mg 01/31/2020 12:00:00 AM EST tablet 30 TAKE ONE TABLET BY MOUTH AT BEDTIME MAXIMUM DAILY DOSE = ONE TABLET TAKE ONE TABLET BY MOUTH AT BEDTIME MAXIMUM DAILY DOSE = ONE TABLET SOLD: 01/31/2020 [facility] tizanidine 4 MG Oral Tablet TIZANIDINE HCL 01/31/2020 12:00:00 AM EST tablet 30 TAKE ONE TABLET BY MOUTH AT BEDTIME TAKE ONE TABLET BY MOUTH AT BEDTIME SOLD: 01/31/2020 [facility] meloxicam 7.5 MG Oral Tablet MELOXICAM 01/31/2020 12:00:00 AM EST tabl et 60 TAKE ONE TABLET BY MOUTH TWICE A DAY TAKE ONE TABLET BY MOUTH TWICE A DAY SOLD: 01/31/2020 [facility] 500 mg 01/31/2020 12:00:00 AM EST tablet extended release 24 hr 180 TAKE ONE TABLET BY MOUTH TWICE A DAY MAXIMUM DAILY DOSE = 2 TABLETS TAKE ONE TABLET BY MOUTH TWICE A DAY MAXIMUM DAILY DOSE = 2 TABLETS SOLD: 01/31/2020 [facility] 5-325 mg 01/01/2020 12:00:00 AM EST tablet 30 TAKE ONE TABLET BY MOUTH AT BEDTIME MAXIMUM DAILY DOSE = ONE TABLET TAKE ONE TABLET BY MOUTH AT BEDTIME MAXIMUM DAILY DOSE = ONE TABLET SOLD: 01/01/2020 [facility] tizanidine 4 MG Oral Tablet TIZANIDINE HCL 01/01/2020 12:00:00 AM EST tablet 30 TAKE ONE TABLET BY MOUTH AT BEDTIME TAKE ONE TABLET BY MOUTH AT BEDTIME SOLD: 01/02/2020 [facility] 5 mg 01/01/2020 12:00:00 AM EST tablet 30 TAKE ONE TABLET BY MOUTH AT BEDTIME MAXIMUM DAILY DOSE = 1 TABLET TAKE ONE TABLET BY MOUTH AT BEDTIME MAXIMUM DAILY DOSE = 1 TABLET SOLD: 01/02/2020 [facility] meloxicam 7.5 MG Oral Tablet MELOXICAM 01/01/2020 12:00:00 AM EST tabl et 60 TAKE ONE TABLET BY MOUTH TWICE A DAY TAKE ONE TABLET BY MOUTH TWICE A DAY SOLD: 01/02/2020 [facility] atorvastatin 40 MG Oral Tablet ATORVASTATIN CALCIUM 12/19/2019 1 2:00:00 AM EST tablet 90 TAKE ONE TABLET BY MOUTH EVERY D AY TAKE ONE TABLET BY MOUTH EVERY DAY SOLD: 12/24/2019 [facility] 600 mg 12/19/2019 12:00:00 AM EST tablet 180 TAKE ONE TABLET BY MOUTH TWICE A DAY TAKE ONE TABLET BY MOUTH TWICE A DAY SOLD: 12/24/2019 [facility] 500 mg 12/09/2019 12:00:00 AM EDT tablet 30 TAKE ONE TABLET BY MOUTH TWICE A DAY WITH FOOD TAKE ONE TABLET BY MOUTH TWICE A DAY WITH FOOD SOLD: 020 [facility] 300 mg 12/09/2019 12:00:00 AM EDT capsule 18 TAKE ONE CAPSULE BY MOUTH TWICE A DAY UNTIL GONE TAKE ONE CAPSULE BY MOUTH TWICE A DAY UNTIL GONE SOLD: 12/09/2019 [facility] 500 mg 11/29/2019 12:00:00 AM EDT tablet 20 TAKE ONE TABLET BY MOUTH TWICE A DAY TAKE ONE TABLET BY MOUTH TWICE A DAY SOLD: 11/29/2019 [facility] meloxicam 7.5 MG Oral Tablet MELOXICAM 11/28/2019 12:00:00 AM EDT tabl et 60 TAKE ONE TABLET BY MOUTH TWICE A DAY TAKE ONE TABLET BY MOUTH TWICE A DAY SOLD: 11/28/2019 [facility] 5 mg 11/28/2019 12:00:00 AM EDT tablet 90 TAKE ONE TABLET BY MOUTH EVERY DAY TAKE ONE TABLET BY MOUTH EVERY DAY SOLD: 11/28/2019 [facility] 5-325 mg 11/28/2019 12:00:00 AM EDT tablet 30 TAKE ONE TABLET BY MOUTH AT BEDTIME MAXIMUM DAILY DOSE = 1 TAKE ONE TABLET BY MOUTH AT BEDTIME MAXI MUM DAILY DOSE = 1 SOLD: 11/28/2019 [facility] 5 mg 11/28/2019 12:00:00 AM EDT tablet 30 TAKE ONE TABLET BY MOUTH AT BEDTIME MAXIMUM DAILY DOSE = 1 TAKE ONE TABLET BY MOUTH AT BEDTIME MAXI MUM DAILY DOSE = 1 SOLD: 11/28/2019 [facility] 4 mg 11/28/2019 12:00:00 AM EDT tablet 30 TAKE ONE TABLET BY MOUTH AT BEDTIME TAKE ONE TABLET BY MOUTH AT BEDTIME SOLD: 11/28/2019 [facility] 100 unit/mL 11/14/2019 12:00:00 AM EDT insulin pen 15 INJECT DIRECTED THREE TIMES A DAY MAX OF 20 UNITS PER DAY INJECT DIRECTED THREE TIMES A DAY MAX OF 20 UNITS PER DAY SOLD: 11/15/2019 [facility] 29 gauge x 1/2" 11/14/2019 12:00:00 AM EDT needle 200 TEST DIRECTED UP TO 6 TIMES A DAY TEST DIRECTED UP TO 6 TIMES A DAY SOLD: 11/15/2019 [facility] BLOOD SUGAR DIAGNOSTIC 11/14/2019 12:00:00 AM EDT strip 300 TEST DIRECTED UP TO THREE TIMES A DAY TEST DIRECTED UP TO THREE TIMES A DAY SOLD: 11/15/2019 [facility] 300 unit/mL (1.5 mL) 11/14/2019 12:00:00 AM EDT insulin pen 9 INJECT 20 UITS A DAY DIRECTED, MAXIMUM DAILY DOSE = 1 INJECT 20 UITS A DAY DIRECTED, MAXIMUM DAILY DOSE = 1 SOLD: 11/15/2019 [facility] 4 mg 10/30/2019 12:00:00 AM EDT tablet 30 TAKE ONE TABLET BY MOUTH AT BEDTIME TAKE ONE TABLET BY MOUTH AT BEDTIME SOLD: 10/31/2019 [facility] meloxicam 7.5 MG Oral Tablet MELOXICAM 10/30/2019 12:00:00 AM EDT tabl et 60 TAKE ONE TABLET BY MOUTH TWICE A DAY TAKE ONE TABLET BY MOUTH TWICE A DAY SOLD: 10/31/2019 [facility] 5 mg 10/30/2019 12:00:00 AM EDT tablet 30 TAKE ONE TABLET BY MOUTH AT BEDTIME MAXIMUM DAILY DOSE = 1 TAKE ONE TABLET BY MOUTH AT BEDTIME MAXI MUM DAILY DOSE = 1 SOLD: 10/31/2019 [facility] 5-325 mg 10/29/2019 12:00:00 AM EDT tablet 30 TAKE ONE TABLET BY MOUTH AT BEDTIME MAXIMUM DAILY DOSE = 1 TAKE ONE TABLET BY MOUTH AT BEDTIME MAXI MUM DAILY DOSE = 1 SOLD: 10/29/2019 [facility] 5-325 mg 09/28/2019 12:00:00 AM EDT tablet 30 TAKE ONE TABLET BY MOUTH EVERY EVENING AT BEDTIME MAXIMUM DAILY DOSE = 1 TAKE ONE TABLET BY MOUTH EVERY EVENING AT BEDTIME MAXIMUM DAILY DOSE = 1 SOLD: 09/28/2019 [facility] meloxicam 7.5 MG Oral Tablet MELOXICAM 09/28/2019 12:00:00 AM EDT tabl et 60 TAKE ONE TABLET BY MOUTH TWICE A DAY TAKE ONE TABLET BY MOUTH TWICE A DAY SOLD: 09/28/2019 [facility] 5 mg 09/28/2019 12:00:00 AM EDT tablet 30 TAKE ONE TABLET BY MOUTH EVERY EVENING AT BEDTIME MAXIMUM DAILY DOSE = 1 TAKE ONE TABLET BY MOUTH EVERY EVENING AT BEDTIME MAXIMUM DAILY DOSE = 1 SOLD: 09/28/2019 [facility] 4 mg 09/28/2019 12:00:00 AM EDT tablet 30 TAKE ONE TABLET BY MOUTH EVERY EVENING AT BEDTIME TAKE ONE TABLET BY MOUTH EVERY EVENING AT BEDTIME SOLD : 09/28/2019 [facility] 40 mg 09/03/2019 12:00:00 AM EDT tablet 90 TAKE ONE TABLET BY MOUTH EVERY DAY TAKE ONE TABLET BY MOUTH EVERY DAY SOLD: 09/05/2019 [facility] 5 mg 08/29/2019 12:00:00 AM EDT tablet 30 TAKE ONE TABLET BY MOUTH AT BEDTIME MAXIMUM DAILY DOSE = 1 TABLET TAKE ONE TABLET BY MOUTH AT BEDTIME MAXIMUM DAILY DOSE = 1 TABLET SOLD: 08/29/2019 [facility] 4 mg 08/29/2019 12:00:00 AM EDT tablet 30 TAKE ONE TABLET BY MOUTH AT BEDTIME TAKE ONE TABLET BY MOUTH AT BEDTIME SOLD: 08/29/2019 [facility] meloxicam 7.5 MG Oral Tablet MELOXICAM 08/29/2019 12:00:00 AM EDT tabl et 60 TAKE ONE TABLET BY MOUTH TWICE A DAY TAKE ONE TABLET BY MOUTH TWICE A DAY SOLD: 08/29/2019 [facility] 5-325 mg 08/29/2019 12:00:00 AM EDT tablet 30 TAKE ONE TABLET BY MOUTH AT BEDTIME MAXIMUM DAILY DOSE = 1 TABLET TAKE ONE TABLET BY MOUTH AT BEDTIME MAXIMUM DAILY DOSE = 1 TABLET SOLD: 08/29/2019 [facility] 600 mg 08/29/2019 12:00:00 AM EDT tablet 180 TAKE ONE TABLET BY MOUTH TWICE A DAY TAKE ONE TABLET BY MOUTH TWICE A DAY SOLD: 08/29/2019 [facility] 20 mg 08/29/2019 12:00:00 AM EDT capsule,delayed release (DR/EC) 180 TAKE ONE CAPSULE BY MOUTH TWICE A DAY TAKE ONE CAPSULE BY MOUTH TWICE A DAY SOLD: 08/29/2019 [facility] 4 mg 07/30/2019 12:00:00 AM EDT tablet 30 TAKE ONE TABLET BY MOUTH AT BEDTIME TAKE ONE TABLET BY MOUTH AT BEDTIME SOLD: 07/30/2019 [facility] meloxicam 7.5 MG Oral Tablet MELOXICAM 07/30/2019 12:00:00 AM EDT tabl et 60 TAKE ONE TABLET BY MOUTH TWICE A DAY TAKE ONE TABLET BY MOUTH TWICE A DAY SOLD: 07/30/2019 [facility] 5-325 mg 07/30/2019 12:00:00 AM EDT tablet 30 TAKE ONE TABLET BY MOUTH AT BEDTIME MAXIMUM DAILY DOSE = 1 TABLET TAKE ONE TABLET BY MOUTH AT BEDTIME MAXIMUM DAILY DOSE = 1 TABLET SOLD: 07/30/2019 [facility] 5 mg 07/30/2019 12:00:00 AM EDT tablet 30 TAKE ONE TABLET BY MOUTH AT BEDTIME MAXIMUM DAILY DOSE = 1 TABLET TAKE ONE TABLET BY MOUTH AT BEDTIME MAXIMUM DAILY DOSE = 1 TABLET SOLD: 07/30/2019 [facility] 5 mg 06/29/2019 12:00:00 AM EDT tablet 30 TAKE ONE TABLET BY MOUTH AT BEDTIME MAXIMUM DAILY DOSE = 1 TAKE ONE TABLET BY MOUTH AT BEDTIME MAXI MUM DAILY DOSE = 1 SOLD: 07/01/2019 [facility] 5-325 mg 06/29/2019 12:00:00 AM EDT tablet 30 TAKE ONE TABLET BY MOUTH EVERY DAY MAXIMUM DAILY DOSE = 1 TABLET TAKE ONE TABLET BY MOUTH EVERY DAY MAXIM UM DAILY DOSE = 1 TABLET SOLD: 06/29/2019 [facility] 7.5 mg 06/29/2019 12:00:00 AM EDT tablet 60 TAKE ONE TABLET BY MOUTH TWICE A DAY TAKE ONE TABLET BY MOUTH TWICE A DAY SOLD: 07/01/2019 [facility] 4 mg 06/29/2019 12:00:00 AM EDT tablet 30 TAKE ONE TABLET BY MOUTH AT BEDTIME TAKE ONE TABLET BY MOUTH AT BEDTIME SOLD: 07/01/2019 [facility] 5 mg 05/31/2019 12:00:00 AM EDT tablet 30 TAKE ONE TABLET BY MOUTH AT BEDTIME TAKE ONE TABLET BY MOUTH AT BEDTIME SOLD: 06/01/2019 [facility] 5-325 mg 05/31/2019 12:00:00 AM EDT tablet 30 TAKE ONE TABLET BY MOUTH EVERY DAY MAXIMUM DAILY DOSE = ONE TABLET TAKE ONE TABLET BY MOUTH EVERY DAY MAXIM UM DAILY DOSE = ONE TABLET SOLD: 06/01/2019 [facility] 4 mg 05/30/2019 12:00:00 AM EDT tablet 30 TAKE ONE TABLET BY MOUTH AT BEDTIME TAKE ONE TABLET BY MOUTH AT BEDTIME SOLD: 06/01/2019 [facility] 7.5 mg 05/30/2019 12:00:00 AM EDT tablet 60 TAKE ONE TABLET BY MOUTH TWICE A DAY TAKE ONE TABLET BY MOUTH TWICE A DAY SOLD: 06/01/2019 [facility] 40 mg 05/28/2019 12:00:00 AM EDT tablet 90 TAKE ONE TABLET BY MOUTH EVERY DAY TAKE ONE TABLET BY MOUTH EVERY DAY SOLD: 05/28/2019 [facility] 7.5 mg 05/28/2019 12:00:00 AM EDT tablet 60 TAKE ONE TABLET BY MOUTH TWICE A DAY TAKE ONE TABLET BY MOUTH TWICE A DAY SOLD: 05/28/2019 [facility] 40 mg 05/26/2019 12:00:00 AM EDT tablet,delayed release (DR/EC) 90 TAKE ONE TABLET BY MOUTH EVERY DAY TAKE ONE TABLET BY MOUTH EVERY DAY SOLD: 05/26/2019 [facility] 29 gauge x 1/2" 05/16/2019 12:00:00 AM EDT needle 200 DIRECTED 6 TIMES A DAY DIRECTED 6 TIMES A DAY SOLD: 05/16/2019 [facility] 500 mg 05/16/2019 12:00:00 AM EDT tablet extended release 24 hr 180 TAKE ONE TABLET BY MOUTH TWICE A DAY MAXIMUM DAILY DOSE = TWO TABLETS TAKE ONE TABLET BY MOUTH TWICE A DAY MAXIMUM DAILY DOSE = TWO TABLETS SOLD: 10/31/2019 [facility] 25 mg 05/16/2019 12:00:00 AM EDT tablet 180 TAKE 1/2 TABLET BY MOUTH TWO TIMES A DAY TAKE 1/2 TABLET BY MOUTH TWO TIMES A DAY SOLD: 02/05/2020 [facility] BLOOD SUGAR DIAGNOSTIC 05/16/2019 12:00:00 AM EDT strip 300 USE DIRECTED UP TO 3 TIMES DAILY MAXIMUM DAILY DOSE = 3 STRIPS USE DIRECTED UP TO 3 TIMES DAILY MAXIMUM DAILY DOSE = 3 STRIPS SOLD: 05/16/2019 [facility] 25 mg 05/16/2019 12:00:00 AM EDT tablet 180 TAKE 1/2 TABLET BY MOUTH TWO TIMES A DAY TAKE 1/2 TABLET BY MOUTH TWO TIMES A DAY SOLD: 05/16/2019 [facility] 300 unit/mL (1.5 mL) 05/16/2019 12:00:00 AM EDT insulin pen 9 USE 20 UNITS DIRECTED MAXIMUM DAILY DOSE = 20 UNITS USE 20 UNITS DIRECTED MAXIMUM DAILY DOSE = 20 UNITS SOLD: 05/16/2019 [facility] 500 mg 05/16/2019 12:00:00 AM EDT tablet extended release 24 hr 180 TAKE ONE TABLET BY MOUTH TWICE A DAY MAXIMUM DAILY DOSE = TWO TABLETS TAKE ONE TABLET BY MOUTH TWICE A DAY MAXIMUM DAILY DOSE = TWO TABLETS SOLD: 05/16/2019 [facility] 4 mg 05/02/2019 12:00:00 AM EDT tablet 30 TAKE ONE TABLET BY MOUTH AT BEDTIME TAKE ONE TABLET BY MOUTH AT BEDTIME SOLD: 05/03/2019 [facility] 5-325 mg 05/02/2019 12:00:00 AM EDT tablet 30 TAKE ONE TABLET BY MOUTH EVERY DAY MAXIMUM DAILY DOSE = ONE TABLET TAKE ONE TABLET BY MOUTH EVERY DAY MAXIM UM DAILY DOSE = ONE TABLET SOLD: 05/03/2019 [facility] 5 mg 05/02/2019 12:00:00 AM EDT tablet 30 TAKE ONE TABLET BY MOUTH AT BEDTIME MAXIMUM DAILY DOSE = ONE TABLET TAKE ONE TABLET BY MOUTH AT BEDTIME MAXIMUM DAILY DOSE = ONE TABLET SOLD: 05/03/2019 [facility] 7.5 mg 05/02/2019 12:00:00 AM EDT tablet 60 TAKE ONE TABLET BY MOUTH TWICE A DAY TAKE ONE TABLET BY MOUTH TWICE A DAY SOLD: 05/03/2019 [facility] Gemfibrozil 600 MG Oral Tablet GEMFIBROZIL 04/27/2019 12:00:00 AM EDT tablet 180 TAKE ONE TABLET BY MOUTH TWICE A DAY TAKE ONE TA BLET BY MOUTH TWICE A DAY SOLD: 04/30/2019 [facility] 25 mg 04/25/2019 12:00:00 AM EDT tablet 90 TAKE ONE TABLET BY MOUTH EVERY DAY TAKE ONE TABLET BY MOUTH EVERY DAY SOLD: 04/26/2019 [facility] 7.5 mg 04/05/2019 12:00:00 AM EST tablet 60 TAKE ONE TABLET BY MOUTH TWICE A DAY TAKE ONE TABLET BY MOUTH TWICE A DAY SOLD: 04/06/2019 [facility] 5 mg 04/03/2019 12:00:00 AM EST tablet 30 TAKE ONE TABLET BY MOUTH AT BEDTIME MAXIMUM DAILY DOSE = ONE TABLET TAKE ONE TABLET BY MOUTH AT BEDTIME MAXIMUM DAILY DOSE = ONE TABLET SOLD: 04/03/2019 [facility] 5-325 mg 04/03/2019 12:00:00 AM EST tablet 60 TAKE ONE TABLET BY MOUTH TWICE A DAY MAXIMUM DAILY DOSE = TWO TABLETS TAKE ONE TABLET BY MOUTH TWICE A DAY MAXIMUM DAILY DOSE = TWO TABLETS SOLD: 04/03/2019 [facility] 100 unit/mL 03/28/2019 12:00:00 AM EST insulin pen 18 DIRECTED THREE TIMES A DAY MAXIMUM DAILY DOSE = 20 UNITS DIRECTED THREE TIMES A DAY MAXIMUM DAILY DOSE = 20 UNITS SOLD: 08/06/2019 [facility] 100 unit/mL 03/28/2019 12:00:00 AM EST insulin pen 18 DIRECTED THREE TIMES A DAY MAXIMUM DAILY DOSE = 20 UNITS DIRECTED THREE TIMES A DAY MAXIMUM DAILY DOSE = 20 UNITS SOLD: 03/28/2019 [facility] 4 mg 03/02/2019 12:00:00 AM EST tablet 30 TAKE ONE TABLET BY MOUTH AT BEDTIME TAKE ONE TABLET BY MOUTH AT BEDTIME SOLD: 03/02/2019 [facility] 5-325 mg 03/02/2019 12:00:00 AM EST tablet 120 TAKE ONE TABLET BY MOUTH FOUR TIMES A DAY MAXIMUM DAILY DOSE = 4 TAKE ONE TABLET BY MOUTH FOUR TIMES A DA Y MAXIMUM DAILY DOSE = 4 SOLD: 03/02/2019 [facility] 25 mg 03/02/2019 12:00:00 AM EST tablet 90 TAKE ONE TABLET BY MOUTH EVERY DAY TAKE ONE TABLET BY MOUTH EVERY DAY SOLD: 03/02/2019 [facility] 10 mg 03/02/2019 12:00:00 AM EST tablet 30 TAKE ONE TABLET BY MOUTH AT BEDTIME MAXIMUM DAILY DOSE = 1 TAKE ONE TABLET BY MOUTH AT BEDTIME MAXI MUM DAILY DOSE = 1 SOLD: 03/02/2019 [facility] 40 mg 02/09/2019 12:00:00 AM EST tablet 90 TAKE ONE TABLET BY MOUTH EVERY DAY TAKE ONE TABLET BY MOUTH EVERY DAY SOLD: 02/10/2019 [facility] 40 mg 02/08/2019 12:00:00 AM EST tablet,delayed release (DR/EC) 90 TAKE ONE TABLET BY MOUTH EVERY DAY TAKE ONE TABLET BY MOUTH EVERY DAY SOLD: 02/08/2019 [facility] 10 mg 01/31/2019 12:00:00 AM EST tablet 30 TAKE ONE TABLET BY MOUTH AT BEDTIME MAXIMUM DAILY DOSE = ONE TABLET TAKE ONE TABLET BY MOUTH AT BEDTIME MAXIMUM DAILY DOSE = ONE TABLET SOLD: 02/01/2019 [facility] 4 mg 01/31/2019 12:00:00 AM EST tablet 30 TAKE ONE TABLET BY MOUTH AT BEDTIME TAKE ONE TABLET BY MOUTH AT BEDTIME SOLD: 02/01/2019 [facility] 5-325 mg 01/31/2019 12:00:00 AM EST tablet 120 TAKE ONE TABLET BY MOUTH FOUR TIMES A DAY MAXIMUM DAILY DOSE = FOUR TABLETS TAKE ONE TABLET BY MOUTH FOUR TIMES A DAY MAXIMUM DAILY DOSE = FOUR TABLETS SOLD: 01/31/2019 [facility] 300 unit/mL (1.5 mL) 12/11/2018 12:00:00 AM EDT insulin pen 9 USE DIRECTED 20 UNITS ONCE DAILY USE DIRECTED 20 UNITS ONCE DAILY SOLD: 03/28/2019 [facility] Insurance Providers Payer name Policy type / Coverage type Policy ID Covered alliance party ID Covered alliance party's relationship to morgan Policy Morgan Plan Information [id number] [id number] SP [id number] [facility] [id number] SP [id number] UHC UNITED MEDICARE DUAL G [id number] Self [id number] MEDICAID [id number] Self [id number] [facility] O [id number] S [id number] MEDICAID M [id number] MEDICAID [id number] SP [id number] MEDICARE COMPLETE [id number] SP [id number] [place] Medig[place] Part B [id number] Self [id number] [place] Primary [id number] Self [id number] [facility] Medicare Dual Complet Commercial [id number] Self [id number] [facility](Medicare) Medigap Part B [id number] Self [id number] [place] [id number] Self [id number] [place] Primary [id number] Self [id number] [facility] Medicare Dual Complet Commercial [id number] Self [id number] ANSI-Medicaid [id number] ANSI-Not a Secondary Insurance [id number] MEDICAID [id number] SP [id number] [id number] SP [id number] MEDICAID [id number] SP [id number] [place] Medig[place] Part B [id number] Self [id number] Medicare [facility] Medicare Primary [id number] Self [id number] [facility] Medicare Dual Complet Commercial [id number] Self [id number] [facility] [id number] SP [id number] COUNT INCLUDES THE [facility] COMMUN[facility] PL[facility] [id number] SP [id number] [place] Medig[place] Part [place] [id number] Self [id number] Medicare [facility] Medicare Primary [id number] Self [id number] [employer](Medicare) Commercial [id number] Self [id number] [place] Med[place] Part B [id number] Self [id number] Medicare [facility] Medicare Primary [id number] Self [id number] [facility] UNITED MEDICARE DUAL G [id number] Self [id number] [place] [id number] Self [id number] Medicare [facility] Medicare Primary [id number] Self [id number] Medicare [facility] Medigap Part B [id number] Self [id number] United [employer] Duel Commercial [id number] Self [id number] [place]ig[place] [id number] Self [id number] Medicare [facility] Medigap Part B [id number] Self [id number] United [employer] Duel Commercial [id number] Self [id number] [facility] DUAL COMPLETE O [id number] S [id number] [facility] UNITED MEDICARE DUAL G [id number] Self [id number] [place] [id number] Self [id number] Medicare [facility] Medicare Primary [id number] Self [id number] MEDICARE A [id number] Self [id number] A UNITED H [id number] Self [id number] MEDICARE [id number] SP [id number] [place] [id number] Self [id number] Medicare [facility] Medicare Primary [id number] Self [id number] [place]ig[place] Part B Self Medicare [facility] Medicare Primary Self MEDICAID [id number] SP [id number] [place] Medicare Primary Self Medicaid Medigap Part B Self Medicare (Part B) Medicare Primary Self MEDICARE C [id number] S [id number] A MEDICARE [id number] SP [id number] A [id number] A [id number] Problems, Conditions, and Diagnoses Code Display Name Description Problem Type Effective Dates Data Source(s) [id number] Bilateral carpal tunnel syndrome Bilater al carpal tunnel syndrome Problem 02/22/2020 12:00:00 AM EST [facility] ([facility], ) [id number] Sensory polyneuropathy Sensory polyneuropathy Problem 01/08/2020 12:00:00 AM EST [facility] ([facility], ) Radiculopathy, cervical region Radiculopathy, cervical region Problem 01/08/2020 12:00:00 AM EST [facility] ([facility], ) [id number] Skin sensation disturbance Skin sensation disturbance Problem 01/08/2020 12:00:00 AM EST [facility] ([facility], ) [id number] Spondylolysis Spondylolysis Problem 01/08/2020 12:00:00 AM EST [facility] ([facility], ) [id number] 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 Problem 01/08/2020 12:00:00 AM EST [facility] ([facility] ) [id number] Low back pain Low back pain Problem 01/08/2020 12:00:00 AM EST [facility] ([facility], ) [id number] Cervico-occipital neuralgia Cervico-occipital neuralgi a Problem 01/08/2020 12:00:00 AM EST [facility] ([facility], ) [id number] Neck pain Neck pain Problem 01/08/2020 12:00:00 AM ES T [facility] ([facility], ) Surgeries/Procedures Procedure Description Date Indications Data Source(s) MRI BRAIN BRAIN STEM W/O CONTRAST MATERIAL 01/19/2020 12:00:00 AM EST [facility] ([facility], ) MRI BRAIN BRAIN STEM W/O CONTRAST MATERIAL 01/19/2020 12:00:00 AM EST [facility] ([facility], ) MRI SPINAL CANAL CERVICAL W/O CONTRAST MATRL 0 12:00:00 AM EST [facility] ([facility], ) MRI SPINAL CANAL CERVICAL W/O CONTRAST MATRL 0 12:00:00 AM EST [facility] ([facility], ) Needle electromyography, each extremity, with related paraspinal areas, when performed, done with nerve conduction, amplitude and latency/velocity study; complete, five or more muscles studied, innervated by three or more nerves or four or more spinal levels (list separately in addition to the code for primary procedure). 01/14/2020 12:00:00 AM EST [facility] ([facility], ) Needle electromyography, each extremity, with related paraspinal areas, when performed, done with nerve conduction, amplitude and latency/velocity study; complete, five or more muscles studied, innervated by three or more nerves or four or more spinal levels (list separately in addition to the code for primary procedure). 01/14/2020 12:00:00 AM EST [facility] ([facility], ) Nerve Conduction 9-10 Studies 01/14/2020 12:00:[address] [facility] ([facility], ) Diabetic Foot Exam 05/16/2019 12:00:00 AM EDT [facility] ([facility] ) Results ID Date Data Source [id number] 02/21/2020 03:40:00 PM [facility] Name Value Range Interpretation Code Description Data Maryann rce(s) Supporting Document(s) Hemoglobin A1c/Hemoglobin.total in Blood 8.0 [facility] ([facility] ) Glucose [Mass/volume] in Serum or Plasma 235 [facility] ([facility]) ID Date Data Source [id number] 01/17/2020 04:28:14 PM [facility] Name Value Range Interpretation Code Description Data Maryann rce(s) Supporting Document(s) Progress Note 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 PICKER OPERATOR+IJUxLEb7LsqLPlNIQ+CUzB+VRnUEt02C/attx3 [file] dH/d9djW0fWLwM9OLT0Ymr1C+EMELYaUGfdGI3vEihkQ1f/vuxUwkHB6gXIwGp7370U0/O7+vbc8P+panelboard tank pumper [file] ICAgICAgICAgICAgICAgICAgICAgICAgICAgICAgIC AgICAgICAgICAgICAgICAgICAgICAgICAgICAgICAgICAgICAgICAgICAgICAgICAgICAgICAgICAgIC AgICAgICANCiAgICAgICAgICAgICAgICAgICAgICAgICAgICAgICAgICAgICAgICAgICAgICAgICAgIC AgICAgICAgICAgICAgICAgICAgICAgICAgICAgICAg ICAgICAgICAgICAgICAgICANCiAgICAgICAgICAgICAgICAgICAgICAgICAgICAgICAgICAgICAgICAg ICAgICAgICAgICAgICAgICAgICAgICAgICAgICAgICAgICAgICAgICAgICAgICAgICAgICAgICAgICAN CiAgICAgICAgICAgICAgICAgICAgICAgICAgICAgIC AgICAgICAgICAgICAgICAgICAgICAgICAgICAgICAgICAgICAgICAgICAgICAgICAgICAgICAgICAgIC AgICAgICAgICANCiAgICAgICAgICAgICAgICAgICAgICAgICAgICAgICAgICAgICAgICAgICAgICAgIC AgICAgICAgICAgICAgICAgICAgICAgICAgICAgICAg ICAgICAgICAgICAgICAgICAgICANCiAgICAgICAgICAgICAgICAgICAgICAgICAgICAgICAgICAgICAg ICAgICAgICAgICAgICAgICAgICAgICAgICAgICAgICAgICAgICAgICAgICAgICAgICAgICAgICAgICAg ICANCiAgICAgICAgICAgICAgICAgICAgICAgICAgIC AgICAgICAgICAgICAgICAgICAgICAgICAgICAgICAgICAgICAgICAgICAgICAgICAgICAgICAgICAgIC AgICAgICAgICAgICANCiAgICAgICAgICAgICAgICAgICAgICAgICAgICAgICAgICAgICAgICAgICAgIC AgICAgICAgICAgICAgICAgICAgICAgICAgICAgICAg ICAgICAgICAgICAgICAgICAgICAgICANCiAgICAgICAgICAgICAgICAgICAgICAgICAgICAgICAgICAg ICAgICAgICAgICAgICAgICAgICAgICAgICAgICAgICAgICAgICAgICAgICAgICAgICAgICAgICAgICAg ICAgICANCiAgICAgICAgICAgICAgICAgICAgICAgIC AgICAgICAgICAgICAgICAgICAgICAgICAgICAgICAgICAgICAgICAgICAgICAgICAgICAgICAgICAgIC AgICAgICAgICAgICAgICANCjw/wTCjO9ywsBAoluU0U2lhOk3LDo8DYB6eb7AkXNVuRVjpwcIzVoyUOp VmTWEeKpyTKwi3OAbfFB0UfHYnH6UrW0PzDWpvVF1M CIEdZVVgdQWtJYTyITCdSlW5NSEzVOxgSV8UnBAjZUupMKIkLDRfJwUoEXXaOHGlKUVoSXMzARKCYAMl KDLiTtNdVWgoZV2Hj8YokEX8EFo+Sn4OFF9wp1DwSDgsVOFbTO9dyh7PJAnVJsClZ7XngxY9CKNkTCHn Nk1QAXRiARUztKJvLSAgJEBFCxDxG3QsxZ29OMRDEk 4+ZSipjjBrWspQViGvDFDmt6SjVMc2FR8BEFYqEHg0jUSgIQPeX7Xvc4LzTd77KXZtLvvhPCW4dlVpVW FsFrErURXmSBABCRIzxQHpWg1rTfZyTrJqWXY5AHHhIH0mGJwaKP4DHRM5BLpbWLVaDHHvR0cLUkLvUG AqDGHocKxuME5YWjYrQ1IxuuQlbYUnYBMxWXJLSb7+ JKucwpCuJifZNlHzLKUve4CcLOq9ZL0GCYCoPOhaSW4CPVWgzF8tHOeqRT5RPrWkZULrEQGMMfSdE36c hTEeUWo2P3IxTjJhXDMiXmybTOZpYQxiQaVeKHShJjLcQZelCF0+ID4+WSatHD1ARWajsvMvIQRqUg8M FHJoQESfZI2kNBLwRQJtH0N3yYfrKELYZeAbI1zjen lsHU4kDSUaW649uRytumHcTIXfMYAmUs1PFNQtRCG7IZOklRHzKgwbJDNFHDycNF3BfKCuLNM4yG9mVZ kvWBZnFEZoP0sQHtGyrYgkQU17cVeiaaDimUSgBEh+Lm7MZH4qi4RuTLt4qlCrHSwlZQRrHFnaIAQxLV PjLBTmVTX7HCF9FHTXDfDeFYBpKYGmPSlaFDRaPDOr kb5RFPTuXND4BBJ4FZGxDNAqSKRcECanQHUpWUKnFra0ONSzHOEbOB7EWgXnLYWaSVMqWFifSMLmWYJm yv0IJYSuMCKxRbu9RNJxBCIcLAMuBTsbOSRqGYTiQDH5VZKzASPyTI6MKhQsSBBhAHtjNbScBMJeINAn nz3SJNHdLITvEkJmHEDvJPInMHSnHJysYEKgGQC4Ss o2NVJiMAOpME0RAiMbTZOoVFo5KYAwILPlPQCepo5SFZTpHHZxUjs0XIEwOHZoIHVkSTlyILTqTKHbIV m4EHSdCGZjQB3PTeTvDGOtUTC4LrrqLDDzTVTwpq3NHTXtIZRnBFdyISIoMOXdLOVdODpdWYMdTKZ5Ka a7XKFwYSNeTT8FDlWiLAZqQEF8ARSnMRByJQHpzj6Y CIPyFHRiQvC2OLLoYWEjTCLnMOeoRTAgQTV9RERxVYZvIAMhGV4OCdIvAWUxSPzrIoHxXHZtSIPhlk2M YNTcADRjErBxUwCqRUDhVKNjEIdcTIBhDRJ0FIX5XRIyQMDfUI4SLoGbRBZqBHnoWWhlFELwRVEwtv1Y LGVuCQU4NSQ1NrEjPBXnVKZdYSklMOUxHPJgPRywCA KpVJJrXS6TMaBdEXTsARYbRsxuCZVcOJEeyn4ZUMNvLCL5MVR4GvVuPOBjAKNnWLlwUWRmEMSqLtXvZN UiJSQqFH7AYxMsWSDpWZN8WwxlTPZvSPAwim7KTIArSDH4HZw0ZoSpBHDcMRHsTOcxZVBmGRRoIFRpTR PjQIYbWD2LBnRdJIEmWFY8QSYfHIDdIBPjgj2MRROa XGL0BhI0QYBsWHUcQXJrRBb7xlIzmOFhFQr8MN1EZ4OrrwGoJhENSy8Cf064TDIcYBRiXr4IN4owMx8h QEInNCTYPl9EWAi6WTW8RuN6XoLuKjV6NaMkXbRbVwm3JVj5JaYuIhceNhV+DBc6KqDiCKXqIQQsAskm DwOwBTNaLBvuSxX8J8BiHHOkCl3wNKHZAh7+AEalnGFyfGoqDJPFSfIjXXr8EVfeDRXSJt6L ID Date Data Source [id number] 11/14/2019 08:55:00 AM EDT [facility] ([facility]) Name Value Range Interpretation Code Description Data Maryann rce(s) Supporting Document(s) Microalbumin [Mass/volume] in Urine 99.4 mg/L [facility] ([facility] ) Creatinine [Mass/volume] in Urine 113.0 mg/dL [facility] ([facility]) Microalbumin/Creatinine [Mass Ratio] in Urine 87.9 MCG/MG 0.0-30.0 [facility] [employer] STATES THAT MICROALBUMINURIA IS PRESENT IF THE MICROALBUMIN/CREATININE RATIO EXCEEDS 30 MCG/MG. THE THRESHOLD FOR CLINICAL ALBUMINURIA IS REACHED AT 300 MCG/MG. THE CLASSIFICATION OF A PATIENT SHOULD BE BASED UPON AT LEAST 2 OF 3 ABNORMAL RESULTS ON SPECIMENS COLLECTED WITHIN A 3 TO 6 MONTH TIME FRAME. ID Date Data Source [id number] 11/14/2019 08:51:00 AM EDT [facility] Name Value Range Interpretation Code Description Data Maryann rce(s) Supporting Document(s) Hemoglobin A1c/Hemoglobin.total in Blood 8.3 [facility] ([facility]) Glucose [Mass/volume] in Serum or Plasma 150 [facility] ([facility]) ID Date Data Source [id number] 05/16/2019 09:39:00 AM EDT [facility] ([facility]) Name Value Range Interpretation Code Description Data Maryann rce(s) Supporting Document(s) Glucose [Mass/volume] in Serum or Plasma 183 [facility] ([facility]) Hemoglobin A1c/Hemoglobin.total in Blood 7.8 [facility] ([facility]) ID Date Data Source [id number] 05/16/2019 08:28:00 AM EDT [facility] ([facility]) Name Value Range Interpretation Code Description Data Maryann rce(s) Supporting Document(s) Glucose [Mass/volume] in Serum or Plasma [facility] Procedure Social History Code Duration Value Status Description Data Source(s ) Smoking 02/21/2020 12:00:00 AM EST Patient is a former smoker completed Patient is a former smoker [facility] ([facility]) Alcohol intake 01/17/2020 12:00:00 AM EST Current non-d alonzo of alcohol (finding) completed Current non-drinker of alcohol (finding) [facility] Tobacco use and exposure 01/17/2020 12:00:00 AM EST Never used co mpleted Never used [facility] Cigarette pack-years 01/17/2020 12:00:00 AM EST UNK completed [facility] Cigarettes smoked current (pack per day) - Reported 01/17/20 20 12:00:00 AM EST UNK completed [facility] Smoking 01/17/2020 12:00:00 AM EST Former smoker completed Former smoker [facility] Vital Signs ID Date Data Source UNK Name Value Range Interpretation Code Description Data Source(s) Oxygen saturation in Arterial blood by Pulse oximetry 98 % 98 % [facility] ([facility] ) Body mass index (BMI) [Ratio] 39.0 kg/m2 39.0 k g/m2 [facility] ([facility]) Body weight 300.00 [lb_av] 300.00 [lb_av] [facility] ([facility]) Body height 73.5 [in_i] 73.5 [in_i] [facility] ([facility]) 6'1.50" Body temperature 97.0 [degF] 97.0 [degF] [facility] ([facility] ) Heart rate 77 /min 77 /min [facility] ([facility] ) Diastolic blood pressure 80 mm[Hg] 80 mm[Hg] [facility] ([facility] ) Systolic blood pressure 128 mm[Hg] 128 mm[Hg] M EDENT ([facility] ) [place] body weight 202 [lb_av] 202 [lb_av] MEDEN T ([facility], ) Body mass index (BMI) [Ratio] 35.3 kg/m2 35.3 k g/m2 MEDENT ([facility], ) Body weight 290.00 [lb_av] 290.00 [lb_av] MEDEN T ([facility], ) Body height 76 [in_i] 76 [in_i] MEDENT ([facility], ) 6'4" Respiratory rate 14 /min 14 /min MEDENT ( [facility], ) Heart rate 80 /min 80 /min MEDENT ([facility], ) Diastolic blood pressure 85 mm[Hg] 85 mm[Hg] MEDENT ([facility], ) Systolic blood pressure 130 mm[Hg] 130 mm[Hg] M EDENT ([facility], ) Oxygen saturation in Arterial blood by Pulse oximetry 97 % 97 % MEDENT ([facility] ) Body mass index (BMI) [Ratio] 38.4 kg/m2 38.4 k g/m2 MEDENT ([facility] ) Body weight 295.12 [lb_av] 295.12 [lb_av] MAYAEN T ([facility] ) Body height 73.5 [in_i] 73.5 [in_i] MEDENT ([facility] ) 6'1.50" Heart rate 67 /min 67 /min MEDENT ([facility] ) Diastolic blood pressure 80 mm[Hg] 80 mm[Hg] MEDFANNY ([facility] ) Systolic blood pressure 120 mm[Hg] 120 mm[Hg] M [id number] ([facility] )
--- OUTSIDE RECORDS SUMMARY | 2020-03-13 10:28 | CCD ---
Author Author [facility] Organization [facility] Address Unknown Phone Unavailable Care Team Providers Care Evaporator Supervisor Name Role Phone NRI, 318 Unavailable Unavailable COOK, B BEATRICE ROLL TRUCKER Unavailable Unavailable COOK, B BEATRICE ROLL TRUCKER Unavailable Unavailable COOK, B BEATRICE ROLL TRUCKER Unavailable Unavailable COOK, B BEATRICE ROLL TRUCKER Unavailable Unavailable COOK, B BEATRICE ROLL TRUCKER Unavailable Unavailable COOK, B BEATRICE ROLL TRUCKER Unavailable Unavailable COOK, B BEATRICE ROLL TRUCKER Unavailable Unavailable COOK, B BEATRICE ROLL TRUCKER Unavailable Unavailable COOK, B BEATRICE ROLL TRUCKER Unavailable Unavailable COOK, B BEATRICE ROLL TRUCKER Unavailable Unavailable COOK, B BEATRICE ROLL TRUCKER Unavailable Unavailable COOK, B BEATRICE ROLL TRUCKER Unavailable Unavailable COOK, B BEATRICE ROLL TRUCKER Unavailable Unavailable COOK, B BEATRICE ROLL TRUCKER Unavailable Unavailable COOK, B BEATRICE ROLL TRUCKER Unavailable Unavailable COOK, B BEATRICE ROLL TRUCKER Unavailable Unavailable COOK, B BEATRICE ROLL TRUCKER Unavailable Unavailable COOK, B BEATRICE ROLL TRUCKER Unavailable Unavailable COOK, B BEATRICE ROLL TRUCKER Unavailable Unavailable COOK, B BEATRICE ROLL TRUCKER Unavailable Unavailable COOK, B BEATRICE ROLL TRUCKER Unavailable Unavailable COOK, B BEATRICE ROLL TRUCKER Unavailable Unavailable COOK, B BEATRICE ROLL TRUCKER Unavailable Unavailable COOK, B BEATRICE ROLL TRUCKER Unavailable Unavailable COOK, B BEATRICE ROLL TRUCKER Unavailable Unavailable COOK, B BEATRICE ROLL TRUCKER Unavailable Unavailable COOK, B BEATRICE ROLL TRUCKER Unavailable Unavailable COOK, B BEATRICE ROLL TRUCKER Unavailable Unavailable COOK, B BEATRICE ROLL TRUCKER Unavailable Unavailable COOK, B BEATRICE ROLL TRUCKER Unavailable Unavailable COOK, B BEATRICE ROLL TRUCKER Unavailable Unavailable COOK, B BEATRICE ROLL TRUCKER Unavailable Unavailable COOK, B BEATRICE ROLL TRUCKER Unavailable Unavailable COOK, B BEATRICE ROLL TRUCKER Unavailable Unavailable COOK, B BEATRICE ROLL TRUCKER Unavailable Unavailable COOK, B BEATRICE ROLL TRUCKER Unavailable Unavailable COOK, B BEATRICE ROLL TRUCKER Unavailable Unavailable COOK, B BEATRICE ROLL TRUCKER Unavailable Unavailable COOK, B BEATRICE ROLL TRUCKER Unavailable Unavailable COOK, B BEATRICE ROLL TRUCKER Unavailable Unavailable COOK, B BEATRICE ROLL TRUCKER Unavailable Unavailable COOK, B BEATRICE ROLL TRUCKER Unavailable Unavailable COOK, B BEATRICE ROLL TRUCKER Unavailable Unavailable COOK, B BEATRICE ROLL TRUCKER Unavailable Unavailable COOK, B BEATRICE ROLL TRUCKER Unavailable Unavailable COOK, B BEATRICE ROLL TRUCKER Unavailable Unavailable COOK, B BEATRICE ROLL TRUCKER Unavailable Unavailable COOK, B BEATRICE ROLL TRUCKER Unavailable Unavailable COOK, B BEATRICE ROLL TRUCKER Unavailable Unavailable COOK, B BEATRICE ROLL TRUCKER Unavailable Unavailable COOK, B BEATRICE ROLL TRUCKER Unavailable Unavailable COOK, B BEATRICE ROLL TRUCKER Unavailable Unavailable COOK, B BEATRICE ROLL TRUCKER Unavailable Unavailable COOK, B BEATRICE ROLL TRUCKER Unavailable Unavailable COOK, B BEATRICE ROLL TRUCKER Unavailable Unavailable COOK, B BEATRICE ROLL TRUCKER Unavailable Unavailable COOK, B BEATRICE ROLL TRUCKER Unavailable Unavailable COOK, B BEATRICE ROLL TRUCKER Unavailable Unavailable COOK, B BEATRICE ROLL TRUCKER Unavailable Unavailable COOK, B BEATRICE ROLL TRUCKER Unavailable Unavailable COOK, B BEATRICE ROLL TRUCKER Unavailable Unavailable COOK, B BEATRICE ROLL TRUCKER Unavailable Unavailable COOK, B BEATRICE ROLL TRUCKER Unavailable Unavailable COOK, B BEATRICE ROLL TRUCKER Unavailable Unavailable Rios, Marilynn ROLL TRUCKER Unavailable Unavailable Rios, Marilynn ROLL TRUCKER Unavailable Unavailable Rios, Marilynn ROLL TRUCKER Unavailable Unavailable Rios, Marilynn ROLL TRUCKER Unavailable Unavailable Rios, Marilynn ROLL TRUCKER Unavailable Unavailable Rios, Marilynn ROLL TRUCKER Unavailable Unavailable Rios, Marilynn ROLL TRUCKER Unavailable Unavailable Rios, Marilynn ROLL TRUCKER Unavailable Unavailable Rios, Marilynn ROLL TRUCKER Unavailable Unavailable Rios, Marilynn ROLL TRUCKER Unavailable Unavailable Rios, Marilynn ROLL TRUCKER Unavailable Unavailable Rios, Marilynn ROLL TRUCKER Unavailable Unavailable Rios, Marilynn ROLL TRUCKER Unavailable Unavailable Rios, Marilynn ROLL TRUCKER Unavailable Unavailable Rios, Marilynn ROLL TRUCKER Unavailable Unavailable Rios, Marilynn ROLL TRUCKER Unavailable Unavailable Rios, Marilynn ROLL TRUCKER Unavailable Unavailable Rios, Marilynn ROLL TRUCKER Unavailable Unavailable Rios, Marilynn ROLL TRUCKER Unavailable Unavailable Rios, Marilynn ROLL TRUCKER Unavailable Unavailable Rios, Marilynn ROLL TRUCKER Unavailable Unavailable Rios, Marilynn ROLL TRUCKER Unavailable Unavailable Rios, Marilynn ROLL TRUCKER Unavailable Unavailable Rios, Marilynn ROLL TRUCKER Unavailable Unavailable Rios, Marilynn ROLL TRUCKER Unavailable Unavailable Rios, Marilynn ROLL TRUCKER Unavailable Unavailable Rios, Marilynn ROLL TRUCKER Unavailable Unavailable Rios, Marilynn ROLL TRUCKER Unavailable Unavailable Rios, Marilynn ROLL TRUCKER Unavailable Unavailable Rios, Marilynn ROLL TRUCKER Unavailable Unavailable Rios, Marilynn ROLL TRUCKER Unavailable Unavailable Rois, Marilynn ROLL TRUCKER Unavailable Unavailable Rios, Marilynn ROLL TRUCKER Unavailable Unavailable Rios, Marilynn ROLL TRUCKER Unavailable Unavailable Rios, Marilynn ROLL TRUCKER Unavailable Unavailable Rios, Marilynn ROLL TRUCKER Unavailable Unavailable Rios, Marilynn ROLL TRUCKER Unavailable Unavailable Rios, Marilynn ROLL TRUCKER Unavailable Unavailable Rios, Marilynn ROLL TRUCKER Unavailable Unavailable Rios, Marilynn ROLL TRUCKER Unavailable Unavailable Rios, Marilynn ROLL TRUCKER Unavailable Unavailable Rios, Marilynn ROLL TRUCKER Unavailable Unavailable Rios, Marilynn ROLL TRUCKER Unavailable Unavailable Rios, Marilynn ROLL TRUCKER Unavailable Unavailable Rios, Marilynn ROLL TRUCKER Unavailable Unavailable Rios, Marilynn ROLL TRUCKER Unavailable Unavailable Rios, Marilynn ROLL TRUCKER Unavailable Unavailable Rios, Marilynn ROLL TRUCKER Unavailable Unavailable Rios, Marilynn ROLL TRUCKER Unavailable Unavailable Rios, Marilynn ROLL TRUCKER Unavailable Unavailable Rios, Marilynn ROLL TRUCKER Unavailable Unavailable Rios, Marilynn ROLL TRUCKER Unavailable Unavailable Rios, Marilynn ROLL TRUCKER Unavailable Unavailable Rios, Marilynn ROLL TRUCKER Unavailable Unavailable Rios, Marilynn ROLL TRUCKER Unavailable Unavailable Rios, Marilynn ROLL TRUCKER Unavailable Unavailable Rios, Marilynn ROLL TRUCKER Unavailable Unavailable Rios, Marilynn ROLL TRUCKER Unavailable Unavailable Rios, Marilynn ROLL TRUCKER Unavailable Unavailable Rios, Marilynn ROLL TRUCKER Unavailable Unavailable Rios, Marilynn ROLL TRUCKER Unavailable Unavailable Rios, Marilynn ROLL TRUCKER Unavailable Unavailable Rios, Marilynn ROLL TRUCKER Unavailable Unavailable Rios, Marilynn ROLL TRUCKER Unavailable Unavailable Rios, Marilynn ROLL TRUCKER Unavailable Unavailable Rios, Marilynn ROLL TRUCKER Unavailable Unavailable Rios, Marilynn ROLL TRUCKER Unavailable Unavailable Rios, Marilynn ROLL TRUCKER Unavailable Unavailable RABACH, A ANTHONY Unavailable Unavailable SHARONDA, EDY ROLL TRUCKER Unavailable Unavailable SHARONDA, EDY ROLL TRUCKER Unavailable Unavailable SHARONDA, EDY ROLL TRUCKER Unavailable Unavailable SHARONDA, EDY ROLL TRUCKER Unavailable Unavailable SHARONDA, EDY ROLL TRUCKER Unavailable Unavailable SHARONDA, EDY ROLL TRUCKER Unavailable Unavailable SHARONDA, EDY ROLL TRUCKER Unavailable Unavailable SHARONDA, EDY ROLL TRUCKER Unavailable Unavailable SHARONDA, EDY ROLL TRUCKER Unavailable Unavailable SHARONDA, EDY ROLL TRUCKER Unavailable Unavailable SHARONDA, EDY ROLL TRUCKER Unavailable Unavailable SHARONDA, EDY ROLL TRUCKER Unavailable Unavailable SHARONDA, DEY ROLL TRUCKER Unavailable Unavailable SHARONDA, EDY ROLL TRUCKER Unavailable Unavailable SHARONDA, EDY ROLL TRUCKER Unavailable Unavailable SHARONDA, EDY ROLL TRUCKER Unavailable Unavailable SHARONDA, EDY ROLL TRUCKER Unavailable Unavailable SHARONDA, EDY ROLL TRUCKER Unavailable Unavailable SHARONDA, EDY ROLL TRUCKER Unavailable Unavailable SHARONDA, EDY ROLL TRUCKER Unavailable Unavailable SHARONDA, EDY ROLL TRUCKER Unavailable Unavailable SHARONDA, EDY ROLL TRUCKER Unavailable Unavailable SHARONDA, EDY ROLL TRUCKER Unavailable Unavailable SHARONDA, EDY ROLL TRUCKER Unavailable Unavailable SHARONDA, EDY ROLL TRUCKER Unavailable Unavailable SHARONDA, EDY ROLL TRUCKER Unavailable Unavailable SHARONDA, EDY ROLL TRUCKER Unavailable Unavailable SHARONDA, EDY ROLL TRUCKER Unavailable Unavailable SHARONDA, EDY ROLL TRUCKER Unavailable Unavailable SHARONDA, EDY ROLL TRUCKER Unavailable Unavailable SHARONDA, EDY ROLL TRUCKER Unavailable Unavailable SHARONDA, EDY ROLL TRUCKER Unavailable Unavailable SHARONDA, EDY ROLL TRUCKER Unavailable Unavailable SHARONDA, EDY ROLL TRUCKER Unavailable Unavailable SHARONDA, EDY ROLL TRUCKER Unavailable Unavailable SHARONDA, EDY ROLL TRUCKER Unavailable Unavailable SHARONDA, EDY ROLL TRUCKER Unavailable Unavailable SHARONDA, EDY ROLL TRUCKER Unavailable Unavailable SHARONDA, EDY ROLL TRUCKER Unavailable Unavailable SHARONDA, EDY ROLL TRUCKER Unavailable Unavailable SHARONDA, EDY ROLL TRUCKER Unavailable Unavailable Kristopher Cisneros MD Unavailable Unavailable [...] is protected by Article 27-F of the [facility] Public Health law. If you continue you may have access to information: Regarding HIV / AIDS; Provided by facilities licensed or operated by the [facility] Office of Mental Health; or Provided by the [facility] Office for People With Developmental Disabilities. If such information is present, then the following [facility] mandated warning applies: This information has [...] law may result in a fine or retirement sentence or both. A general authorization for the release of medical or other information is NOT sufficient authorization for further disc losure. Allergies and Adverse Reactions Type Description Substance Reaction Status Data Source(s ) Drug Class NO KNOWN ALLERGIES NO KNOWN [facility] Family History Family Member Name Family Member Gender Family Member Status Date o f Status Description Data Source(s) Unknown Unknown Problem [facility] ([facility] ) Unknown Unknown Problem [facility] ) Unknown Unknown Problem [facility] ([facility]) Unknown Unknown Problem [facility] ([facility] Unknown [facility] Problem [facility] ([facility] Unknown Male Problem [facility] ([facility]) Unknown Male Problem [facility] ([facility]) Encounters Encounter Providers Location Date Indications Data Source(s ) Outpatient Attender: ANTHONY VALERA 07/17/2020 12:00:00 AM [facility] Outpatient Attender: Kristopher Cisneros MD Main office - [place] 02/22/2020 11:45:00 AM EST [facility] ([facility] Outpatient Attender: BEATRICE FANG NP Physical Therapy 02/21/2020 0 2:45:00 PM EST [facility] ([facility]) Outpatient Attender: ANTHONY VALERA 01/18/2020 12:00:00 AM [facility] Outpatient Attender: ANTHONY VALERA [id number] 01/17/2020 12:00:00 AM [facility] Outpatient Attender: Kristopher Cisneros MD Main office - [place] 01/08/2020 07:30:00 AM EST [facility] ([facility]) Outpatient Attender: EDY MCDONOUGH NP 01/02/2020 12:00:0 0 AM [facility] Outpatient Attender: BEATRICE FANG NP Physical Therapy 11/14/2019 0 8:45:00 AM EDT [facility] ([facility]) Outpatient Attender: Marilynn Rios NP ADULT PC 07/24/2019 07:38:20 PM EDT [facility] Outpatient Referrer: Bulmaro HOOVER 05/20/2019 07:03:00 AM EDT [facility] Outpatient Attender: BEATRICE FANG NP Physical Therapy 05/16/2019 0 8:45:00 AM EDT [facility] ([facility]) Medications Medication Brand Name Start [...] 02/22/2020 12:00:00 AM EST ORAL active [facility] ([facility]) dapagliflozin 5 MG Oral Tablet [Farxiga] Farxiga 02/21/2020 12:00: 00 AM EST ORAL active [facility] ([facility]) 5 mg [...] BY MOUTH TWICE A DAY SOLD: 07/30/2019 [facility] 5-325 mg 07/30/2019 12:00:00 AM EDT [...] type / Coverage type Policy ID Covered green party ID Covered green party's relationship to morgan Policy Morgan Plan Information [id number] SP [id number] [facility] [id number] SP [id number] UHC UNITED MEDICARE DUAL G [id number] Self [id number] MEDICAID M [id number] Self [id number] [facility] O [id number] S [id number] MEDICAID M [id number] S [id number] MEDICAID [id number] SP [id number] MEDICARE COMPLETE [id number] SP [id number] [place] Part B [id number] Self [id number] [place] Primary [id number] Self [id number] [facility] Medicare Dual Complet Commercial [id number] Self [id number] [facility](Medicare) Medigap Part B [id number] Self [id number] Medicaid [place] Medigap Part B [id number] Self [id number] [place] Primary [id number] Self [id number] [facility] Medicare Dual Complet Commercial [id number] Self [id number] ANSI-Medicaid [id number] ANSI-Not a Secondary Insurance [id number] MEDICAID [id number] SP [id number] [facility] [id number] SP [id number] MEDICAID [id number] SP [id number] [place] [id number] Self [id number] Medicare [facility] Medicare Primary [id number] Self [id number] [facility] Medicare Dual Complet Commercial [id number] Self [id number] UNITED HE[facility] [id number] SP [id number] [facility] [id number] SP [id number] Medicaid [place] Medigap Part B [id number] Self [id number] Medicare [facility] Medicare Primary [id number] Self [id number] [employer](Medicare) Commercial [id number] Self [id number] Medicaid [place] Medigap Part B [id number] Self [id number] Medicare [facility] Medicare Primary [id number] Self [id number] [facility] UNITED MEDICARE DUAL G [id number] Self [id number] Medicaid MD Medigap Part B [id number] Self [id number] Medicare [facility] Medicare Primary [id number] Self [id number] Medicare [facility] Medigap Part B [id number] Self [id number] United Healthcare Duel Commercial [id number] Self [id number] Medicaid MD Medigap Part B [id number] Self [id number] Medicare [facility] Medigap Part B [id number] Self [id number] United Healthcare Duel Commercial [id number] Self [id number] [facility] DUAL COMPLETE O [id number] S [id number] [facility] UNITED MEDICARE DUAL G [id number] Self [id number] Medicaid MD Medigap Part B [id number] Self [id number] Medicare [facility] Medicare Primary [id number] Self [id number] MEDICARE A [id number] Self [id number] A UNITED H [id number] Self [id number] MEDICARE [id number] SP [id number] A Medicaid MD Medigap Part B [id number] Self [id number] Medicare [facility] Medicare Primary [id number] Self [id number] Medicaid MD Medigap Part B Self Medicare [facility] Medicare Primary Self MEDICAID [id number] SP [id number] Medicaid [place] Medigap Part B [place] Medicare Primary Self Medicaid Medigap Part B Self Medicare (Part B) Medicare Primary Self MEDICARE C [id number] S [id number] A MEDICARE [id number] SP [id number] A [id number] A [id number] Problems, Conditions, and Diagnoses Code Display Name Description Problem Type Effective Dates Data Source(s) [id number] Bilateral carpal tunnel syndrome Bilater al carpal tunnel syndrome Problem 02/22/2020 12:00:00 AM EST [facility] ([facility] [id number] Sensory polyneuropathy Sensory polyneuropathy Problem 01/08/2020 12:00:00 AM EST [facility] ([facility] Radiculopathy, cervical region Radiculopathy, cervical region Problem 01/08/2020 12:00:00 AM EST [facility] ([facility] [id number] Skin sensation disturbance Skin sensation disturbance Problem 01/08/2020 12:00:00 AM EST [facility] ([facility] [id number] Spondylolysis Spondylolysis Problem 01/08/2020 12:00:00 AM EST [facility] ([facility] [id number] 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 Problem 01/08/2020 12:00:00 AM EST [facility] ([facility] [id number] Low back pain Low back pain Problem 01/08/2020 12:00:00 AM EST [facility] ([facility] [id number] Cervico-occipital neuralgia Cervico-occipital neuralgi a Problem 01/08/2020 12:00:00 AM EST [facility] ([facility] [id number] Neck pain Neck pain Problem 01/08/2020 12:00:00 AM ES T [facility] ([facility] Surgeries/Procedures Procedure Description Date Indications Data Source(s) MRI BRAIN BRAIN STEM W/O CONTRAST MATERIAL 01/19/2020 12:00:00 AM EST [facility] ([facility] MRI BRAIN BRAIN STEM W/O CONTRAST MATERIAL 01/19/2020 12:00:00 AM EST [facility] ([facility] MRI SPINAL CANAL CERVICAL W/O CONTRAST MATRL 0 12:00:00 AM EST [facility] ([facility] MRI SPINAL CANAL CERVICAL W/O CONTRAST MATRL 0 12:00:00 AM EST [facility] ([facility] Needle electromyography, each extremity, with related paraspinal areas, when performed, done with nerve conduction, amplitude and latency/velocity study; complete, five or more muscles studied, innervated by three or more nerves or four or more spinal levels (list separately in addition to the code for primary procedure). 01/14/2020 12:00:00 AM EST [facility] ([facility] Needle electromyography, each extremity, with related paraspinal areas, when performed, done with nerve conduction, amplitude and latency/velocity study; complete, five or more muscles studied, innervated by three or more nerves or four or more spinal levels (list separately in addition to the code for primary procedure). 01/14/2020 12:00:00 AM EST [facility] ([facility] Nerve Conduction 9-10 Studies 01/14/2020 12:00:[address] [facility] ([facility] ) Diabetic Foot Exam 05/16/2019 12:00:00 AM EDT [facility] ([facility] ) Results ID Date Data Source [id number] 02/21/2020 03:40:00 PM EST [facility] Name Value Range Interpretation Code Description Data Maryann rce(s) Supporting Document(s) Hemoglobin A1c/Hemoglobin.total in Blood 8.0 [facility] ([facility] ) Glucose [Mass/volume] in Serum or Plasma 235 [facility] ([facility]) ID Date Data Source [id number] 01/17/2020 04:28:14 PM [facility] Name Value Range Interpretation Code Description Data Maryann rce(s) Supporting Document(s) Progress Note [facility] CDDPUl6eMsUZTfUr46/IWFaoVAWiy3OtEAspARj7JMuxEEIuD9KyFPA2tE7rHZS7WBdKLyXvUaViHwRy [facility] [file] dH/t4msJ2vMYfM9GDS6Dpc5E+AWFMXlIGxhHE1cWmtbN6q/ggpBkpNK6mYJrEb8187U2/O7+vbc8P+perianesthesia nurse [file] ICAgICAgICAgICAgICAgICAgICAgICAgICAgICAgIC AgICAgICAgICAgICAgICAgICAgICAgICAgICAgICAgICAgICAgICAgICAgICAgICAgICAgICAgICAgIC AgICAgICANCiAgICAgICAgICAgICAgICAgICAgICAgICAgICAgICAgICAgICAgICAgICAgICAgICAgIC AgICAgICAgICAgICAgICAgICAgICAgICAgICAgICAg ICAgICAgICAgICAgICAgICANCiAgICAgICAgICAgICAgICAgICAgICAgICAgICAgICAgICAgICAgICAg ICAgICAgICAgICAgICAgICAgICAgICAgICAgICAgICAgICAgICAgICAgICAgICAgICAgICAgICAgICAN CiAgICAgICAgICAgICAgICAgICAgICAgICAgICAgIC AgICAgICAgICAgICAgICAgICAgICAgICAgICAgICAgICAgICAgICAgICAgICAgICAgICAgICAgICAgIC AgICAgICAgICANCiAgICAgICAgICAgICAgICAgICAgICAgICAgICAgICAgICAgICAgICAgICAgICAgIC AgICAgICAgICAgICAgICAgICAgICAgICAgICAgICAg ICAgICAgICAgICAgICAgICAgICANCiAgICAgICAgICAgICAgICAgICAgICAgICAgICAgICAgICAgICAg ICAgICAgICAgICAgICAgICAgICAgICAgICAgICAgICAgICAgICAgICAgICAgICAgICAgICAgICAgICAg ICANCiAgICAgICAgICAgICAgICAgICAgICAgICAgIC AgICAgICAgICAgICAgICAgICAgICAgICAgICAgICAgICAgICAgICAgICAgICAgICAgICAgICAgICAgIC AgICAgICAgICAgICANCiAgICAgICAgICAgICAgICAgICAgICAgICAgICAgICAgICAgICAgICAgICAgIC AgICAgICAgICAgICAgICAgICAgICAgICAgICAgICAg ICAgICAgICAgICAgICAgICAgICAgICANCiAgICAgICAgICAgICAgICAgICAgICAgICAgICAgICAgICAg ICAgICAgICAgICAgICAgICAgICAgICAgICAgICAgICAgICAgICAgICAgICAgICAgICAgICAgICAgICAg ICAgICANCiAgICAgICAgICAgICAgICAgICAgICAgIC AgICAgICAgICAgICAgICAgICAgICAgICAgICAgICAgICAgICAgICAgICAgICAgICAgICAgICAgICAgIC AgICAgICAgICAgICAgICANCjw/wKNbS0vtnIDkxeL7L1hwOv7OJk0IGE9lq5WvMLKoLSedfcWrBncDEs UxHDXyQxpGToq0DOorGB1FoANlE5FuS4YqCNybIU2N GDIaPEFsbVXyFHGzXFPcQfQ6SFVlQJemXV5MoYVsGRiwYTLdWTNgHiZpAASdSGYmUHQeYVMiMNVRVTDp SCPjShXbIVpzZC8Cv9ClhQA9BLb+Zw3ZBX1sp5AxSDxtILBsGO3tdw8GOCxBLaTpH2FuolW3UKJxLCBc Bt7MYMWwBJDuePTgKYRuXGWLEkOnX6FcgT04NJNDOm 4+WNlayiNuWoyKRxYtHBDcu8QzMZs8WK7KWFJxFTz7aWSuOUDsB1Vtx1YhBx74MCJjUhlxNUW5guBdTL TvPqYmHJJcXHINBAUiwTOmCh7bVlJxOyAzREU0GWMxQV5wCDxaFU2XQHI8HEfpHAUvJDDhH4sYLlHfJT IlELNneZlcCL4DZvKbO5MqjgKnyCNhFTSmRCMKRk1+ YLnubvSkGmpLQbMtUDUig1KxFSi8YZ5AYWBgRElmKT8IPIEnaN2mSJgyXT8VZwLkKDMzTFLAFkIgJ67y dQReNSg2Y1JeNfEnPYRxIrscISLoTPnsFjOwAFSzLuZiAIpwWD1+ID4+JWprBQ2OINhayjZgVWVsPk7A RSCiLDUgMU1sACFpEMJbR4N5uLvcYUUICzTkX6mqce afCY8fMFGfG853dTmehxOyCXQsKXSdUz7PATHhCTU8PLOroRIsKukvZMJECWxjED7HaYWaTSF4yO1dWB kzRLPsRSYyL5qFXiRdkMyoUC24qDjxcuFxoVZpFOa+Tl8SFM7cj2VeGYw9nxJlPAbrEUXoHGonIAJwMV OlGZGuERQ1TLG5MCADPkOmFLStGHQxUSweIDPhFPDp jc2LZTGhSSE7TRM1GGYtGISzTBLpHYojEWHrXCNoQle3SLJpTWRsGL0OMxQnDNSsTXYzJMoeDJYxBDQs hi7UHTEmJBLvBdb5SKCcPCGwZTYfDUruDUZgLFDgBJS3GMGoWFLiLD3UQlRjEWNmMFafAaAxRJKlFPGu ym9QXIPxZFAaBhUbEZAtMVKtGETtJYbzXCTeICR2Hx t9PZFsDMEvMR7IDrQjHZFyNVp6UMPkCOHqYMWdah3UZAIjQNYxWzl3LMAfSWIlDJXyFZyrAKXhMRUrFL c0BPEaPXEeMF3CCwJeSSInYYY8HglmCIRwAJFxus5SRYVlZNHvRJxeYAOmXXEhHETmKGpkNBHrGQF4Px z6CTAjPBGsBH1TAePjIDXjGCM5HQVmBLVtZEZcdk5T AVFiGIShKmG9VZZbUTIaGMAeQQkoLZObVYQ5CLYlRCBsKIBtSW6CYgHcDNWqTXyxTqKlJCFmUIQhyj6G OPYsPPKeUfNlFoLoTHXrTWHcMWjtUVMtQHS2IQF0RWQeJIDbWR6UZyCeRZAyKInaPKirJGBaILJnoj4D XSAjFJJ7OBN3GbZoABWwWMSnMUvbBVFzRYCmHDbkBV UoTTHiBD2FEtVuKOPuJXQkNbyaMPQxLJGevm3BFALhUTG9VJM3EuArNWOpUSUxLTmiSDEuGWIuZxElRG GtRFWoRE4HRmZqZARiDRZ6McvjENIrJPZxyw0OBAWpEXL1RCm1CbIzUXRgVPZnFRxxTKGvIKVuGSWsHP KtKHHzFM8UWpBsTRXsPHO8EOFwOFPmOAHflg9EMNGx GIZ2GfF6ZHYtUKNuQTFnTTz5jxEohRQcGNy7EJ2VN6FsjkXlUgQKDa5Yt165NQXzVKJzQk4NW5wwTh6u TZRpCYLLHr7BVKu1ZEK3HjQ4EmUtNkN6ImMrBbGaUir6IVd8WhUmQxdzHvT+EHc6DpSvTPAaKTYhMqyb LkTxTTVrVDufIxT3W6FjXBWmPx0iDQYKFd3+TMpefWFpyTywPMGLFvIvDFh7HFmvOKAYZj7P ID Date Data Source [id number] 11/14/2019 08:55:00 AM EDT [facility] ([facility]) Name Value Range Interpretation Code Description Data Maryann rce(s) Supporting Document(s) Microalbumin [Mass/volume] in Urine 99.4 mg/L [facility] ([facility] Creatinine [Mass/volume] in Urine 113.0 mg/dL [facility] ([facility]) Microalbumin/Creatinine [Mass Ratio] in Urine 87.9 MCG/MG 0.0-30.0 [facility] THE [employer] STATES THAT MICROALBUMINURIA IS PRESENT IF THE MICROALBUMIN/CREATININE RATIO EXCEEDS 30 MCG/MG. THE THRESHOLD FOR CLINICAL ALBUMINURIA IS REACHED AT 300 MCG/MG. THE CLASSIFICATION OF A PATIENT SHOULD BE BASED UPON AT LEAST 2 OF 3 ABNORMAL RESULTS ON SPECIMENS COLLECTED WITHIN A 3 TO 6 MONTH TIME FRAME. ID Date Data Source [id number] 11/14/2019 08:51:00 AM EDT [facility] Name Value Range Interpretation Code Description Data Maryann rce(s) Supporting Document(s) Hemoglobin A1c/Hemoglobin.total in Blood 8.3 [facility] ([facility]) Glucose [Mass/volume] in Serum or Plasma 150 [facility] ([facility]) ID Date Data Source [id number] 05/16/2019 09:39:00 AM EDT [facility] ([facility]) Name Value Range Interpretation Code Description Data Maryann rce(s) Supporting Document(s) Glucose [Mass/volume] in Serum or Plasma 183 [facility] ([facility]) Hemoglobin A1c/Hemoglobin.total in Blood 7.8 [facility] ([facility]) ID Date Data Source [id number] 05/16/2019 08:28:00 AM EDT [facility] ([facility]) Name Value Range Interpretation Code Description Data Maryann rce(s) Supporting Document(s) Glucose [Mass/volume] in Serum or Plasma 183 [facility] Procedure Social History Code Duration Value Status Description Data Source(s ) Smoking 02/21/2020 12:00:00 AM EST Patient is a former smoker completed Patient is a former smoker [facility] ([facility]) Alcohol intake 01/17/2020 12:00:00 AM EST Current non-d alonzo of alcohol (finding) completed Current non-drinker of alcohol (finding) [facility] Tobacco use and exposure 01/17/2020 12:00:00 AM EST Never used co mpleted Never used [facility] Cigarette pack-years 01/17/2020 12:00:00 AM EST UNK completed [facility] Cigarettes smoked current (pack per day) - Reported 01/17/20 20 12:00:00 AM EST UNK completed [facility] Smoking 01/17/2020 12:00:00 AM EST Former smoker completed Former smoker [facility] Vital Signs ID Date Data Source UNK Name Value Range Interpretation Code Description Data Source(s) Oxygen saturation in Arterial blood by Pulse oximetry 98 % 98 % [facility] ([facility] Body mass index (BMI) [Ratio] 39.0 kg/m2 39.0 k g/m2 [facility] ([facility]) Body weight 300.00 [lb_av] 300.00 [lb_av] MEDEN T ([facility]) Body height 73.5 [in_i] 73.5 [in_i] [facility] ([facility]) 6'1.50" Body temperature 97.0 [degF] 97.0 [degF] [facility] ([facility] ) Heart rate 77 /min 77 /min [facility] ([facility] ) Diastolic blood pressure 80 mm[Hg] 80 mm[Hg] [facility] ([facility] ) Systolic blood pressure 128 mm[Hg] 128 mm[Hg] M EDENT ([facility] ) [place] body weight 202 [lb_av] 202 [lb_av] [facility]EN T ([facility] ) Body mass index (BMI) [Ratio] 35.3 kg/m2 35.3 k g/m2 [facility] ([facility], ) Body weight 290.00 [lb_av] 290.00 [lb_av] MEDEN T ([facility], ) Body height 76 [in_i] 76 [in_i] [facility] ([facility], ) 6'4" Respiratory rate 14 /min 14 /min [facility] ( [facility] ) Heart rate 80 /min 80 /min [facility] ([facility] ) Diastolic blood pressure 85 mm[Hg] 85 mm[Hg] [facility] ([facility] ) Systolic blood pressure 130 mm[Hg] 130 mm[Hg] M EDENT ([facility] ) Oxygen saturation in Arterial blood by Pulse oximetry 97 % 97 % [facility] ([facility] ) Body mass index (BMI) [Ratio] 38.4 kg/m2 38.4 k g/m2 [facility] ([facility] ) Body weight 295.12 [lb_av] 295.12 [lb_av] MAYAEN T ([facility] ) Body height 73.5 [in_i] 73.5 [in_i] [facility] ([facility] ) 6'1.50" Heart rate 67 /min 67 /min [facility] ([facility] ) Diastolic blood pressure 80 mm[Hg] 80 mm[Hg] MEDFANNY ([facility] ) Systolic blood pressure 120 mm[Hg] 120 mm[Hg] M KRZYSZTOF ([facility] )
[2020-03-13 10:35] LABS: BASO # 0.1 10^3/uL (0.0-0.2); BASO % 0.7 % (0.0-1.0); EOS # 0.1 10^3/uL (0.0-0.5); HEMATOCRIT 36.8 % (42.0-52.0); HEMOGLOBIN 11.9 g/dl (13.5-17.5); LYMPH # 0.8 10^3/uL (1.5-5.0); MEAN CORPUSCULAR HEMOGLOBIN 29.6 pg (27.0-33.0); MEAN CORPUSCULAR HGB CONC 32.3 g/dl (32.0-36.5); MEAN CORPUSCULAR VOLUME 91.5 fl (80.0-96.0); MONO # 0.5 10^3/uL (0.0-0.8); MONO % 3.3 % (0.0-5.0); NEUTROPHILS # 11.9 10^3/uL (1.5-8.5); PLATELET COUNT, AUTOMATED 384 10^3/uL (150-450); RED BLOOD COUNT 4.02 10^6/uL (4.30-6.10); WHITE BLOOD COUNT 13.5 10^3/uL (4.0-10.0)
[2020-03-13 11:07] LABS: ALBUMIN 3.9 GM/DL (3.2-5.2); BILIRUBIN,DIRECT 0.4 MG/DL (0.0-0.2); BILIRUBIN,TOTAL 0.6 MG/DL (0.2-1.0); CALCIUM LEVEL 10.3 MG/DL (8.5-10.1); CREATININE FOR GFR 2.07 MG/DL (0.70-1.30); GLOMERULAR FILTRATION RATE 35.3 (>56); POTASSIUM SERUM 4.8 MEQ/L (3.5-5.1); TOTAL PROTEIN 8.7 GM/DL (6.4-8.2)
[2020-03-13 11:10] LABS: APPEARANCE, URINE CLOUDY (CLEAR); BACTERIA, URINE AUTO 2+ (NEGATIVE); BILIRUBIN, URINE AUTO NEGATIVE (NEGATIVE); BLOOD, URINE BLOOD 1+ (NEGATIVE); COLOR, URINE YELLOW (YELLOW); GLUCOSE, URINE (UA) AUTO 3+ mg/dL (NEGATIVE); KETONE, URINE AUTO NEGATIVE (NEGATIVE); LEUKOCYTE ESTERASE, URINE AUTO 3+ (NEGATIVE); MUCUS, URINE SMALL (NEGATIVE); NITRITE, URINE AUTO POSITIVE (NEGATIVE); PROTEIN, URINE AUTO 1+ mg/dL (NEGATIVE); RBC, URINE AUTO 6 /HPF (0-3); SPECIFIC GRAVITY URINE AUTO 1.014 (1.002-1.035); SQUAMOUS EPITHELIAL CELL UR AU 0 /HPF (0-6); UROBILINOGEN, URINE AUTO 0.2 mg/dL (0.0-2.0); WBC, URINE AUTO TNTC /HPF (0-3)
[2020-03-13] MEDS ORDERED: NS 1,000 ML IV ONE (11:15)
--- NOTE | 2020-03-13 12:00 | REP ---
INDICATION: lower abd pain COMPARISON: Comparison CT study August 25, 2017.. TECHNIQUE: Helical scanning is acquired in 4 mm axial images were reformatted. Coronal and sagittal MPR images were generated and reviewed. 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 The lung bases are essentially clear on axial CT images. No pleural effusion is seen. There is mild fatty infiltration of the liver. No focal liver lesion is seen. There are granulomatous calcifications in the liver and spleen. Calcified gallstones are noted in the lumen of the gallbladder. No adrenal lesion is seen. No abnormality is noted in the pancreas. Patient is status post gastric bypass surgery. Moderate intraluminal air is seen throughout the large and small bowel in the central abdomen as on casino dealer view. No obstructive lesion is seen. No evidence of free air or abnormal fluid collection. There is a noninflamed normal size appendix in the right lower quadrant. This appears to contain a tiny calcific appendicular lith. No inflammatory changes are seen. There are dystrophic calcifications in the prostate. Seminal vesicles and urinary bladder are unremarkable. No abdominal wall defect is seen. No bladder calculus is seen. No ureteral or intrarenal calculus is observed. Right-sided hydronephrosis is again seen with rounding of the ureteropelvic junction consistent with congenital ureteropelvic junction obstruction. No calculus or mass is seen. There is some vascular calcification. Normal caliber aorta. IMPRESSION: Cholelithiasis. Mild fatty infiltration of the liver. 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 No calculus disease or mass is observed. Mild ileus pattern in the bowel gas. No gastrointestinal obstructive lesion is seen. Otherwise negative. <Electronically signed by Aristeo Sharma > 03/13/20 2020
[2020-03-13] MEDS ORDERED: cefTRIAXone SOD 1 GM in D5W MINI-BAG PLUS 50 ML IV ONE (12:45)
[2020-03-13] MEDS ORDERED: MORPHINE 4 MG/ML 1ML VIAL/SYRINGE (J2270) IV PRN (14:00)
[2020-03-13] MEDS ORDERED: ONDANSETRON 4MG/2ML VIAL IV PRN (14:00)
[2020-03-13] MEDS ORDERED: GLUCOSE 4GM CHEW TABLET PO PRN (14:00)
[2020-03-13] MEDS ORDERED: GLUCAGON INJ 1MG VIAL SC PRN (14:00)
[2020-03-13] MEDS ORDERED: DEXTROSE 50% 50 ML SYRINGE IV PRN (14:00)
[2020-03-13] MEDS ORDERED: ZOLP5TAB PO (14:20)
[2020-03-13] MEDS ORDERED: OMEP1CAP73 PO (14:20)
[2020-03-13] MEDS ORDERED: GEMF600T5 PO (14:20)
[2020-03-13] MEDS ORDERED: MELO7.5T35 PO (14:20)
[2020-03-13] MEDS ORDERED: METF-838 PO (14:20)
[2020-03-13 14:38] LABS: RSV AMPLIFICATION NEGATIVE (NEGATIVE)
--- OUTSIDE RECORDS SUMMARY | 2020-03-13 14:38 | CCD ---
Author Author [facility] Organization [facility] Address Unknown Phone Unavailable Care Team Providers Care Payroll Bookkeeper Name Role Phone NRI, 318 Unavailable Unavailable COOK, B BEATRICE GRAVURE PRESS SET UP OPERATOR Unavailable Unavailable COOK, B BEATRICE GRAVURE PRESS SET UP OPERATOR Unavailable Unavailable COOK, B BEATRICE GRAVURE PRESS SET UP OPERATOR Unavailable Unavailable COOK, B BEATRICE GRAVURE PRESS SET UP OPERATOR Unavailable Unavailable COOK, B BEATRICE GRAVURE PRESS SET UP OPERATOR Unavailable Unavailable COOK, B BEATRICE GRAVURE PRESS SET UP OPERATOR Unavailable Unavailable COOK, B BEATRICE GRAVURE PRESS SET UP OPERATOR Unavailable Unavailable COOK, B BEATRICE GRAVURE PRESS SET UP OPERATOR Unavailable Unavailable COOK, B BEATRICE GRAVURE PRESS SET UP OPERATOR Unavailable Unavailable COOK, B BEATRICE GRAVURE PRESS SET UP OPERATOR Unavailable Unavailable COOK, B BEATRICE GRAVURE PRESS SET UP OPERATOR Unavailable Unavailable COOK, B BEATRICE GRAVURE PRESS SET UP OPERATOR Unavailable Unavailable COOK, B BEATRICE GRAVURE PRESS SET UP OPERATOR Unavailable Unavailable COOK, B BEATRICE GRAVURE PRESS SET UP OPERATOR Unavailable Unavailable COOK, B BEATRICE GRAVURE PRESS SET UP OPERATOR Unavailable Unavailable COOK, B BEATRICE GRAVURE PRESS SET UP OPERATOR Unavailable Unavailable COOK, B BEATRICE GRAVURE PRESS SET UP OPERATOR Unavailable Unavailable COOK, B BEATRICE GRAVURE PRESS SET UP OPERATOR Unavailable Unavailable COOK, B BEATRICE GRAVURE PRESS SET UP OPERATOR Unavailable Unavailable COOK, B BEATRICE GRAVURE PRESS SET UP OPERATOR Unavailable Unavailable COOK, B BEATRICE GRAVURE PRESS SET UP OPERATOR Unavailable Unavailable COOK, B BEATRICE GRAVURE PRESS SET UP OPERATOR Unavailable Unavailable COOK, B BEATRICE GRAVURE PRESS SET UP OPERATOR Unavailable Unavailable COOK, B BEATRICE GRAVURE PRESS SET UP OPERATOR Unavailable Unavailable COOK, B BEATRICE GRAVURE PRESS SET UP OPERATOR Unavailable Unavailable COOK, B BEATRICE GRAVURE PRESS SET UP OPERATOR Unavailable Unavailable COOK, B BEATRICE GRAVURE PRESS SET UP OPERATOR Unavailable Unavailable COOK, B BEATRICE GRAVURE PRESS SET UP OPERATOR Unavailable Unavailable COOK, B BEATRICE GRAVURE PRESS SET UP OPERATOR Unavailable Unavailable COOK, B BEATRICE GRAVURE PRESS SET UP OPERATOR Unavailable Unavailable COOK, B BEATRICE GRAVURE PRESS SET UP OPERATOR Unavailable Unavailable COOK, B BEATRICE GRAVURE PRESS SET UP OPERATOR Unavailable Unavailable COOK, B BEATRICE GRAVURE PRESS SET UP OPERATOR Unavailable Unavailable COOK, B BEATRICE GRAVURE PRESS SET UP OPERATOR Unavailable Unavailable COOK, B BEATRICE GRAVURE PRESS SET UP OPERATOR Unavailable Unavailable COOK, B BEATRICE GRAVURE PRESS SET UP OPERATOR Unavailable Unavailable COOK, B BEATRICE GRAVURE PRESS SET UP OPERATOR Unavailable Unavailable COOK, B BEATRICE GRAVURE PRESS SET UP OPERATOR Unavailable Unavailable COOK, B BEATRICE GRAVURE PRESS SET UP OPERATOR Unavailable Unavailable COOK, B BEATRICE GRAVURE PRESS SET UP OPERATOR Unavailable Unavailable COOK, B BEATRICE GRAVURE PRESS SET UP OPERATOR Unavailable Unavailable COOK, B BEATRICE GRAVURE PRESS SET UP OPERATOR Unavailable Unavailable COOK, B BEATRICE GRAVURE PRESS SET UP OPERATOR Unavailable Unavailable COOK, B BEATRICE GRAVURE PRESS SET UP OPERATOR Unavailable Unavailable COOK, B BEATRICE GRAVURE PRESS SET UP OPERATOR Unavailable Unavailable COOK, B BEATRICE GRAVURE PRESS SET UP OPERATOR Unavailable Unavailable COOK, B BEATRICE GRAVURE PRESS SET UP OPERATOR Unavailable Unavailable COOK, B BEATRICE GRAVURE PRESS SET UP OPERATOR Unavailable Unavailable COOK, B BEATRICE GRAVURE PRESS SET UP OPERATOR Unavailable Unavailable COOK, B BEATRICE GRAVURE PRESS SET UP OPERATOR Unavailable Unavailable COOK, B BEATRICE GRAVURE PRESS SET UP OPERATOR Unavailable Unavailable COOK, B BEATRICE GRAVURE PRESS SET UP OPERATOR Unavailable Unavailable COOK, B BEATRICE GRAVURE PRESS SET UP OPERATOR Unavailable Unavailable COOK, B BEATRICE GRAVURE PRESS SET UP OPERATOR Unavailable Unavailable COOK, B BEATRICE GRAVURE PRESS SET UP OPERATOR Unavailable Unavailable COOK, B BEATRICE GRAVURE PRESS SET UP OPERATOR Unavailable Unavailable COOK, B BEATRICE GRAVURE PRESS SET UP OPERATOR Unavailable Unavailable COOK, B BEATRICE GRAVURE PRESS SET UP OPERATOR Unavailable Unavailable COOK, B BEATRICE GRAVURE PRESS SET UP OPERATOR Unavailable Unavailable COOK, B BEATRICE GRAVURE PRESS SET UP OPERATOR Unavailable Unavailable COOK, B BEATRICE GRAVURE PRESS SET UP OPERATOR Unavailable Unavailable COOK, B BEATRICE GRAVURE PRESS SET UP OPERATOR Unavailable Unavailable COOK, B BEATRICE GRAVURE PRESS SET UP OPERATOR Unavailable Unavailable COOK, B BEATRICE GRAVURE PRESS SET UP OPERATOR Unavailable Unavailable Rios, Marilynn GRAVURE PRESS SET UP OPERATOR Unavailable Unavailable Rios, Marilynn GRAVURE PRESS SET UP OPERATOR Unavailable Unavailable Rios, Marilynn GRAVURE PRESS SET UP OPERATOR Unavailable Unavailable Rios, Marilynn GRAVURE PRESS SET UP OPERATOR Unavailable Unavailable Riso, Marilynn GRAVURE PRESS SET UP OPERATOR Unavailable Unavailable Rios, Marilynn GRAVURE PRESS SET UP OPERATOR Unavailable Unavailable Rios, Marilynn GRAVURE PRESS SET UP OPERATOR Unavailable Unavailable Rios, Marilynn GRAVURE PRESS SET UP OPERATOR Unavailable Unavailable Rios, Marilynn GRAVURE PRESS SET UP OPERATOR Unavailable Unavailable Rios, Marilynn GRAVURE PRESS SET UP OPERATOR Unavailable Unavailable Rios, Marilynn GRAVURE PRESS SET UP OPERATOR Unavailable Unavailable Rios, Marilynn GRAVURE PRESS SET UP OPERATOR Unavailable Unavailable Rios, Marilynn GRAVURE PRESS SET UP OPERATOR Unavailable Unavailable Rios, Marilynn GRAVURE PRESS SET UP OPERATOR Unavailable Unavailable Rios, Marilynn GRAVURE PRESS SET UP OPERATOR Unavailable Unavailable Rios, Marilynn GRAVURE PRESS SET UP OPERATOR Unavailable Unavailable Rios, Marilynn GRAVURE PRESS SET UP OPERATOR Unavailable Unavailable Rios, Marilynn GRAVURE PRESS SET UP OPERATOR Unavailable Unavailable Rios, Marilynn GRAVURE PRESS SET UP OPERATOR Unavailable Unavailable Rios, Marilynn GRAVURE PRESS SET UP OPERATOR Unavailable Unavailable Rios, Marilynn GRAVURE PRESS SET UP OPERATOR Unavailable Unavailable Rios, Marilynn GRAVURE PRESS SET UP OPERATOR Unavailable Unavailable Rios, Marilynn GRAVURE PRESS SET UP OPERATOR Unavailable Unavailable Rios, Marilynn GRAVURE PRESS SET UP OPERATOR Unavailable Unavailable Rios, Marilynn GRAVURE PRESS SET UP OPERATOR Unavailable Unavailable Rios, Marilynn GRAVURE PRESS SET UP OPERATOR Unavailable Unavailable Rios, Marilynn GRAVURE PRESS SET UP OPERATOR Unavailable Unavailable Rios, Marilynn GRAVURE PRESS SET UP OPERATOR Unavailable Unavailable Rios, Marilynn GRAVURE PRESS SET UP OPERATOR Unavailable Unavailable Rios, Marilynn GRAVURE PRESS SET UP OPERATOR Unavailable Unavailable Rios, Marilynn GRAVURE PRESS SET UP OPERATOR Unavailable Unavailable Rios, Marilynn GRAVURE PRESS SET UP OPERATOR Unavailable Unavailable Rios, Marilynn GRAVURE PRESS SET UP OPERATOR Unavailable Unavailable Rios, Marilynn GRAVURE PRESS SET UP OPERATOR Unavailable Unavailable Rios, Marilynn GRAVURE PRESS SET UP OPERATOR Unavailable Unavailable Rios, Marilynn GRAVURE PRESS SET UP OPERATOR Unavailable Unavailable Rios, Marilynn GRAVURE PRESS SET UP OPERATOR Unavailable Unavailable Rios, Marilynn GRAVURE PRESS SET UP OPERATOR Unavailable Unavailable Rios, Marilynn GRAVURE PRESS SET UP OPERATOR Unavailable Unavailable Rios, Marilynn GRAVURE PRESS SET UP OPERATOR Unavailable Unavailable Rios, Marilynn GRAVURE PRESS SET UP OPERATOR Unavailable Unavailable Rios, Marilynn GRAVURE PRESS SET UP OPERATOR Unavailable Unavailable Rios, Marilynn GRAVURE PRESS SET UP OPERATOR Unavailable Unavailable Rios, Marilynn GRAVURE PRESS SET UP OPERATOR Unavailable Unavailable Rios, Marilynn GRAVURE PRESS SET UP OPERATOR Unavailable Unavailable Rios, Marilynn GRAVURE PRESS SET UP OPERATOR Unavailable Unavailable Rios, Marilynn GRAVURE PRESS SET UP OPERATOR Unavailable Unavailable Rios, Marilynn GRAVURE PRESS SET UP OPERATOR Unavailable Unavailable Rios, Marilynn GRAVURE PRESS SET UP OPERATOR Unavailable Unavailable Rios, Marilynn GRAVURE PRESS SET UP OPERATOR Unavailable Unavailable Rios, Marilynn GRAVURE PRESS SET UP OPERATOR Unavailable Unavailable Rios, Marilynn GRAVURE PRESS SET UP OPERATOR Unavailable Unavailable Rios, Marilynn GRAVURE PRESS SET UP OPERATOR Unavailable Unavailable Rios, Marilynn GRAVURE PRESS SET UP OPERATOR Unavailable Unavailable Rios, Marilynn GRAVURE PRESS SET UP OPERATOR Unavailable Unavailable Rios, Marilynn GRAVURE PRESS SET UP OPERATOR Unavailable Unavailable Rios, Marilynn GRAVURE PRESS SET UP OPERATOR Unavailable Unavailable Rios, Marilynn GRAVURE PRESS SET UP OPERATOR Unavailable Unavailable Rios, Marilynn GRAVURE PRESS SET UP OPERATOR Unavailable Unavailable Rios, Marilynn GRAVURE PRESS SET UP OPERATOR Unavailable Unavailable Rios, Marilynn GRAVURE PRESS SET UP OPERATOR Unavailable Unavailable Rios, Marilynn GRAVURE PRESS SET UP OPERATOR Unavailable Unavailable Rios, Marilynn GRAVURE PRESS SET UP OPERATOR Unavailable Unavailable Rios, Marilynn GRAVURE PRESS SET UP OPERATOR Unavailable Unavailable Rios, Marilynn GRAVURE PRESS SET UP OPERATOR Unavailable Unavailable Rios, Marilynn GRAVURE PRESS SET UP OPERATOR Unavailable Unavailable Rios, Marilynn GRAVURE PRESS SET UP OPERATOR Unavailable Unavailable Rios, Marilynn GRAVURE PRESS SET UP OPERATOR Unavailable Unavailable RABACH, A ANTHONY Unavailable Unavailable SHARONDA, EDY GRAVURE PRESS SET UP OPERATOR Unavailable Unavailable SHARONDA, DEY GRAVURE PRESS SET UP OPERATOR Unavailable Unavailable SHARONDA, EDY GRAVURE PRESS SET UP OPERATOR Unavailable Unavailable SHARONDA, EDY GRAVURE PRESS SET UP OPERATOR Unavailable Unavailable SHARONDA, EDY GRAVURE PRESS SET UP OPERATOR Unavailable Unavailable SHARONDA, EDY GRAVURE PRESS SET UP OPERATOR Unavailable Unavailable SHARONDA, EDY GRAVURE PRESS SET UP OPERATOR Unavailable Unavailable SHARONDA, EDY GRAVURE PRESS SET UP OPERATOR Unavailable Unavailable SHARONDA, EDY GRAVURE PRESS SET UP OPERATOR Unavailable Unavailable SHARONDA, EDY GRAVURE PRESS SET UP OPERATOR Unavailable Unavailable SHARONDA, EDY GRAVURE PRESS SET UP OPERATOR Unavailable Unavailable SHARONDA, EDY GRAVURE PRESS SET UP OPERATOR Unavailable Unavailable SHARONDA, EDY GRAVURE PRESS SET UP OPERATOR Unavailable Unavailable SHARONDA, EDY GRAVURE PRESS SET UP OPERATOR Unavailable Unavailable SHARONDA, EDY GRAVURE PRESS SET UP OPERATOR Unavailable Unavailable SHARONDA, EDY GRAVURE PRESS SET UP OPERATOR Unavailable Unavailable SHARONDA, EDY GRAVURE PRESS SET UP OPERATOR Unavailable Unavailable SHARONDA, EDY GRAVURE PRESS SET UP OPERATOR Unavailable Unavailable SHARONDA, EDY GRAVURE PRESS SET UP OPERATOR Unavailable Unavailable SHARONDA, EDY GRAVURE PRESS SET UP OPERATOR Unavailable Unavailable SHARONDA, EDY GRAVURE PRESS SET UP OPERATOR Unavailable Unavailable SHARONDA, EDY GRAVURE PRESS SET UP OPERATOR Unavailable Unavailable SHARONDA, EDY GRAVURE PRESS SET UP OPERATOR Unavailable Unavailable SHARONDA, EDY GRAVURE PRESS SET UP OPERATOR Unavailable Unavailable SHARONDA, EDY GRAVURE PRESS SET UP OPERATOR Unavailable Unavailable SHARONDA, EDY GRAVURE PRESS SET UP OPERATOR Unavailable Unavailable SHARONDA, EDY GRAVURE PRESS SET UP OPERATOR Unavailable Unavailable SHARONDA, EDY GRAVURE PRESS SET UP OPERATOR Unavailable Unavailable SHARONDA, EDY GRAVURE PRESS SET UP OPERATOR Unavailable Unavailable SHARONDA, EDY GRAVURE PRESS SET UP OPERATOR Unavailable Unavailable SHARONDA, EDY GRAVURE PRESS SET UP OPERATOR Unavailable Unavailable SHARONDA, EDY GRAVURE PRESS SET UP OPERATOR Unavailable Unavailable SHARONDA, EDY GRAVURE PRESS SET UP OPERATOR Unavailable Unavailable SHARONDA, EDY GRAVURE PRESS SET UP OPERATOR Unavailable Unavailable SHARONDA, EDY GRAVURE PRESS SET UP OPERATOR Unavailable Unavailable SHARONDA, EDY GRAVURE PRESS SET UP OPERATOR Unavailable Unavailable SHARONDA, EDY GRAVURE PRESS SET UP OPERATOR Unavailable Unavailable SHARONDA, EDY GRAVURE PRESS SET UP OPERATOR Unavailable Unavailable SHARONDA, EDY GRAVURE PRESS SET UP OPERATOR Unavailable Unavailable SHARONDA, EDY GRAVURE PRESS SET UP OPERATOR Unavailable Unavailable SHARONDA, EDY GRAVURE PRESS SET UP OPERATOR Unavailable Unavailable Kristopher Cisneros MD Unavailable [...] Unavailable Ali, Kristopher MD Unavailable Unavailable Ali, Kristophre MD Unavailable Unavailable Ali, Kristopher MD Unavailable [...] is protected by Article 27-F of the [facility] Public Health law. If you continue you may have access to information: Regarding HIV / AIDS; Provided by facilities licensed or operated by the [facility] Office of Mental Health; or Provided by the [facility] Office for People With Developmental Disabilities. If such information is present, then the following [facility] mandated warning applies: This information has been [...] law may result in a fine or mcfp sentence or both. A general authorization for the release of medical or other information is NOT sufficient authorization for further disc losure. Allergies and Adverse Reactions Type Description Substance Reaction Status Data Source(s ) Drug Class NO KNOWN ALLERGIES NO KNOWN [facility] Family History Family Member Name Family Member Gender Family Member Status Date o f Status Description Data Source(s) Unknown Unknown Problem [facility] ([facility] ) Unknown Unknown Problem [facility] ([facility] ) Unknown Unknown Problem [facility] Unknown Unknown Problem [facility] ([facility] Unknown Unknown Problem [facility] ([facility]) Unknown Male Problem [facility] Unknown Male Problem [facility] ([facility]) Encounters Encounter Providers Location Date Indications Data Source(s ) Outpatient Attender: ANTHONY VALERA 07/17/2020 12:00:00 AM [facility] Outpatient Attender: Kristopher Cisneros MD Main office - [place] 02/22/2020 11:45:00 AM EST [facility] ([facility] Outpatient Attender: BEATRICE FANG NP Physical Therapy 02/21/2020 0 2:45:00 PM EST [facility] ([facility]) Outpatient Attender: ANTHONY VALERA 01/18/2020 12:00:00 AM [facility] Outpatient Attender: ANTHONY VALERA [id number] 01/17/2020 12:00:00 AM [facility] Outpatient Attender: Kristopher Cisneros MD Main office - [place] 01/08/2020 07:30:00 AM EST [facility] ([facility] Outpatient Attender: EDY MCDONOUGH NP 01/02/2020 12:00:0 0 AM [facility] Outpatient Attender: BEATRICE FANG NP Physical Therapy 11/14/2019 0 8:45:00 AM EDT [facility] ([facility]) Outpatient Attender: Marilynn Rios NP ADULT PC 07/24/2019 07:38:20 PM EDT [facility] Outpatient Referrer: Bulmaro HOOVER 05/20/2019 07:03:00 AM EDT [facility] Outpatient Attender: BEATRICE FANG NP Physical Therapy 05/16/2019 0 8:45:00 AM EDT [facility] ([facility]) Medications Medication Brand Name [...] 02/22/2020 12:00:00 AM EST ORAL active [facility] ([facility]) dapagliflozin 5 MG Oral Tablet [Farxiga] Farxiga 02/21/2020 12:00: 00 AM EST ORAL active [facility] ([facility]) 5 mg 02/06/2020 12:00:00 [...] BY MOUTH TWICE A DAY SOLD: 01/02/2020 [facility] atorvastatin 40 MG Oral Tablet ATORVASTATIN [...] TWICE A DAY UNTIL GONE SOLD: 12/09/2019 [facility] 500 mg 11/29/2019 12:00:00 AM EDT [...] type / Coverage type Policy ID Covered libertarian ID Covered libertarian's relationship to morgan Policy Morgan Plan Information [id number] SP [id number] [facility] [id number] SP [id number] UHC UNITED MEDICARE DUAL G [id number] Self [id number] MEDICAID M [id number] Self [id number] [facility] O [id number] S [id number] MEDICAID M [id number] S [id number] MEDICAID [id number] SP [id number] MEDICARE COMPLETE [id number] SP [id number] [place] Medig[place] Part B [id number] Self [id number] [place] Primary [id number] Self [id number] [facility] Medicare Dual Complet Commercial [id number] Self [id number] [facility](Medicare) Medigap Part B [id number] Self [id number] [place] [id number] Self [id number] [place] Primary [id number] Self [id number] [facility] Medicare Dual Complet Commercial [id number] Self [id number] ANSI-Medicaid [id number] ANSI-Not a Secondary Insurance [id number] MEDICAID [id number] SP [id number] [facility] [id number] SP [id number] MED[id number] SP [id number] [place] [id number] Self [id number] Medicare [facility] Medicare Primary [id number] Self [id number] [facility] Medicare Dual Complet Commercial [id number] Self [id number] UNITED HEALTHCARE [facility] [id number] SP [id number] [facility] [id number] SP [id number] [place] Part [place] [id number] Self [id number] Medicare [facility] Medicare Primary [id number] Self [id number] [employer](Medicare) Commercial [id number] Self [id number] [place] [id number] Self [id number] Medicare [facility] Medicare Primary [id number] Self [id number] [facility] UNITED MEDICARE DUAL G [id number] Self [id number] [place]ig[place] Part [place] [id number] Self [id number] Medicare [facility] Medicare Primary [id number] Self [id number] Medicare [facility] Medigap Part B [id number] Self [id number] United Healthcare Duel Commercial [id number] Self [id number] [place]ig[place] Part B [id number] Self [id number] Medicare [facility] Medigap Part B [id number] Self [id number] United Healthcare Duel Commercial [id number] Self [id number] [facility] DUAL COMPLETE O [id number] S [id number] [facility] UNITED MEDICARE DUAL G [id number] Self [id number] [place] Part B [id number] Self [id number] Medicare [facility] Medicare Primary [id number] Self [id number] MEDICARE A [id number] Self [id number] A UNITED H [id number] Self [id number] MEDICARE [id number] SP [id number] [place]ig[place] Part B [id number] Self [id number] Medicare [facility] Medicare Primary [id number] Self [id number] [place] Part B Self Medicare [facility] Medicare Primary Self MEDICAID [id number] SP [id number] [place] Medicare Primary Self Medicaid Medigap Part B Self Medicare (Part B) Medicare Primary Self MEDICARE C [id number] S [id number] A MEDICARE [id number] SP [id number] A [id number] A [id number] Problems, Conditions, and Diagnoses Code Display Name Description Problem Type Effective Dates Data Source(s) [id number] Bilateral carpal tunnel syndrome Bilater al carpal tunnel syndrome Problem 02/22/2020 12:00:00 AM EST [facility] ([facility] [id number] Sensory polyneuropathy Sensory polyneuropathy Problem 01/08/2020 12:00:00 AM EST [facility] ([facility] Radiculopathy, cervical region Radiculopathy, cervical region Problem 01/08/2020 12:00:00 AM EST [facility] ([facility] ) [id number] Skin sensation disturbance Skin sensation disturbance Problem 01/08/2020 12:00:00 AM EST [facility] ([facility] ) [id number] Spondylolysis Spondylolysis Problem 01/08/2020 12:00:00 AM EST [facility] ([facility] ) [id number] 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 Problem 01/08/2020 12:00:00 AM EST [facility] ([facility] [id number] Low back pain Low back pain Problem 01/08/2020 12:00:00 AM EST [facility] ([facility] ) [id number] Cervico-occipital neuralgia Cervico-occipital neuralgi a Problem 01/08/2020 12:00:00 AM EST [facility] ([facility] ) [id number] Neck pain Neck pain Problem 01/08/2020 12:00:00 AM ES T [facility] ([facility] ) Surgeries/Procedures Procedure Description Date Indications Data Source(s) MRI BRAIN BRAIN STEM W/O CONTRAST MATERIAL 01/19/2020 12:00:00 AM EST [facility] ([facility] MRI BRAIN BRAIN STEM W/O CONTRAST MATERIAL 01/19/2020 12:00:00 AM EST [facility] ([facility] MRI SPINAL CANAL CERVICAL W/O CONTRAST MATRL 0 12:00:00 AM EST [facility] ([facility] ) MRI SPINAL CANAL CERVICAL W/O CONTRAST MATRL 0 12:00:00 AM EST [facility] ([facility] ) Needle electromyography, each extremity, with related paraspinal areas, when performed, done with nerve conduction, amplitude and latency/velocity study; complete, five or more muscles studied, innervated by three or more nerves or four or more spinal levels (list separately in addition to the code for primary procedure). 01/14/2020 12:00:00 AM EST [facility] ([facility] ) Needle electromyography, each extremity, with related paraspinal areas, when performed, done with nerve conduction, amplitude and latency/velocity study; complete, five or more muscles studied, innervated by three or more nerves or four or more spinal levels (list separately in addition to the code for primary procedure). 01/14/2020 12:00:00 AM EST [facility] ([facility] ) Nerve Conduction 9-10 Studies 01/14/2020 12:00:[address] [facility] ([facility] ) Diabetic Foot Exam 05/16/2019 12:00:00 AM EDT [facility] ([facility] ) Results ID Date Data Source [id number] 02/21/2020 03:40:00 PM EST [facility] Name Value Range Interpretation Code Description Data Maryann rce(s) Supporting Document(s) Hemoglobin A1c/Hemoglobin.total in Blood 8.0 [facility] ([facility] ) Glucose [Mass/volume] in Serum or Plasma 235 [facility] ([facility]) ID Date Data Source [id number] 01/17/2020 04:28:14 PM [facility] Name Value Range Interpretation Code Description Data Maryann rce(s) Supporting Document(s) Progress Note [facility] RRQOAv7aHrFSIiZj65/IHTwoJWQdz1YoGAmyIHw6XLniSSNaJ9ZwFHW2rB7hVQF8DViIUvKwNjIhGzGq [place] [file] We8M1gtVyU4OqrJmE2wHlnNfvJe5qiTJtTjPmZ+GRAVURE PRESS SET UP OPERATOR+HRQlRLp0ViaIFiRTW+CUzB+RWfIPs06N/attx3 [file] dH/z1irZ0mRWsK5FSJ5Cet3A+MZPMJeOHyhIP5aCxteZ0p/hbzLloUK9eBPsFk7678R7/O7+vbc8P+recycling coordinator [file] ICAgICAgICAgICAgICAgICAgICAgICAgICAgICAgIC AgICAgICAgICAgICAgICAgICAgICAgICAgICAgICAgICAgICAgICAgICAgICAgICAgICAgICAgICAgIC AgICAgICANCiAgICAgICAgICAgICAgICAgICAgICAgICAgICAgICAgICAgICAgICAgICAgICAgICAgIC AgICAgICAgICAgICAgICAgICAgICAgICAgICAgICAg ICAgICAgICAgICAgICAgICANCiAgICAgICAgICAgICAgICAgICAgICAgICAgICAgICAgICAgICAgICAg ICAgICAgICAgICAgICAgICAgICAgICAgICAgICAgICAgICAgICAgICAgICAgICAgICAgICAgICAgICAN CiAgICAgICAgICAgICAgICAgICAgICAgICAgICAgIC AgICAgICAgICAgICAgICAgICAgICAgICAgICAgICAgICAgICAgICAgICAgICAgICAgICAgICAgICAgIC AgICAgICAgICANCiAgICAgICAgICAgICAgICAgICAgICAgICAgICAgICAgICAgICAgICAgICAgICAgIC AgICAgICAgICAgICAgICAgICAgICAgICAgICAgICAg ICAgICAgICAgICAgICAgICAgICANCiAgICAgICAgICAgICAgICAgICAgICAgICAgICAgICAgICAgICAg ICAgICAgICAgICAgICAgICAgICAgICAgICAgICAgICAgICAgICAgICAgICAgICAgICAgICAgICAgICAg ICANCiAgICAgICAgICAgICAgICAgICAgICAgICAgIC AgICAgICAgICAgICAgICAgICAgICAgICAgICAgICAgICAgICAgICAgICAgICAgICAgICAgICAgICAgIC AgICAgICAgICAgICANCiAgICAgICAgICAgICAgICAgICAgICAgICAgICAgICAgICAgICAgICAgICAgIC AgICAgICAgICAgICAgICAgICAgICAgICAgICAgICAg ICAgICAgICAgICAgICAgICAgICAgICANCiAgICAgICAgICAgICAgICAgICAgICAgICAgICAgICAgICAg ICAgICAgICAgICAgICAgICAgICAgICAgICAgICAgICAgICAgICAgICAgICAgICAgICAgICAgICAgICAg ICAgICANCiAgICAgICAgICAgICAgICAgICAgICAgIC AgICAgICAgICAgICAgICAgICAgICAgICAgICAgICAgICAgICAgICAgICAgICAgICAgICAgICAgICAgIC AgICAgICAgICAgICAgICANCjw/gOCvU7psoIQfdgM2W5faKu6NZg7KZK6mv8EjIWBdCSjiviMmYqhSVe BeMMZeZpwOHvi2GIzyWK8ZcZUoC0HzE7BdOJptGV5D LVGzILFdoHVrCZYbFDGeOyY0UCSuLYxkPK3VdFZuPAsdSRUuYLCdBvWaEJAaYUIzGQLxWXSzZTGGPHMo HLVvZjAhQNrrDP6Pv8ZzsWE7PDm+Rm5IMT8gi6TmKAcoPTWnZI1qta2SZXiTZwSvI0XonfP9BFLaTXIm Kl2IXGMnMWUoaNDeNRPsZXWFZpJxZ2CbsH05WFOQNd 4+DNxuvhGfPeiZFqPlSZNeg6DfPAg1PG7GQZAbDOd6pDEnOYWxZ1Tnu6EeQl14NHBqYscaCEW3ctEtOM IkJoFuDHNfXASREPXrrIUfDc7ePqVaItUnMUD5FQHuCB9mXNgyWT3FIPM9DFjqHHHmKEJeH8qRMzAfGY IlTHOqlUqeTR5LKhNbK7EypsOalWQfRDGxJYGOXf7+ WJztfrXjTcxKYnInPLWnc4LgTVi9GB8YZOFgHHbsGR0YTOJyhY2vYJuzLJ6PQvWqTZBzTXWOZzPiI18s vOCqFLa6O5YcRpCqBVSyVbqzFUGeLTzjBmPuJCRvJfTlGVfrMS0+ID4+BDtoSH3UWFulqyInTYVfPy0A CVQmXGLeLE4gUXUcNJQsA2L7xGxaTWLWAwFdM8ybzx vvXS7qBNBoR197tAncfyZwMYIkBDTdAs9WICZjFLF7MCQgzOToMvwwZYVXTYqbTY4CsUBdWBL5iT5sVO rsYZQzDUXjW8bWGmOcsSrvAI65lVqwcpYueAHmLUw+Og1XVJ8vn3YpPDg1smEkGXzpXORgADcxENKyTS NjZYFkSLB5CHJ2LJEKImFxVFIgAJYwEMbdTWToLFNi xt4EXKByNDG8GVV5JCIsHAMyZTTxKUuzIEQbSXFeUed7WYWjSZJnKD9NGeYcBRDtRUXdDEpwBKBxFWRt pf5JUIRpVEHzXzd4VRUrJZNrDOQnMShuGCIgFTIxHQN7WGCjJMOtGM5VWeZeTMZjPGiyWtPwPWCoZQDd ys5EMPHhFYSxWoQzHXFdBIMtOWTmCLuyAENrLZM3Wy b0LYIuOGQiIP0MJlNmQLLwRAn3LKHaGXGxMPCdkk3TTKDkAAZdHnl3JTUcZLGtEGUfFOivHXCeVTWxHY k9PZQrMRQeYA4HAhIxEKOjWJT8UsytRMHcPCBxpx6CFCAuSGZaLJneABTaFNLnFVYmAArzMEXpOZW1Tq d6JZGtPGGaTM5RFgPmRMUhJCJ7BKPbOXQrIOYszz0T GKEcIXNzHqM5NTBtTZJtLKIvLGptGZDaIXT4JTDuKDRlXSGhHC3EOcAiKYCdNUluHkCtBSBgGEVcyr5I PHLtFRYlJbXvBsUdDWTdWDLsVQooXSNxGPH0QFV3ZDSgWUKxDS0ZKcFbCCIeUIklVOogVWWsOFJvyc7T RTQpELU6UWC2QwMnAIWoFLMjHNpbBHLrXDFfSIgxPK XuAGWhVA5FHcAbWWZjMZCfKxtdBXCmLSUjuu0TYVLsXDW6UXR9UpNvUGBgGJWdVDuxRAQyGSVzRbOlLR DyEVXvDY0NBjLjNPAjYMO4JikjZCQyNGGpec8KQTRyYGC3HYc3IjXeAJWtYHDqPImqFIErJUHeKUMnLQ XrNEFaZZ1SBjEgNKLiQLD3CTCfVTFlJHRteu6PKVEp LDG5IxP0MERzXMMeQCTwTCm2tqVbeIUjVMr8TQ3TW7HhuxHzDoFOSk6Yr909QMOwCUEtOy2TU9ghXs0n GESaRVFLGq9DWFg0BYQ4WyJ5IcTkYtB6GhFwRuYaQao5MSq8EyNaLvroRiR+VJf8PbLuTQReSEHgWhgr SiKbPQEdWXzzOaK9O6PyTRNeWb2yAFVAFg7+ACrhsCOntFsfGHTJDlFkDWq8HAwjSXWYEg7X ID Date Data Source [id number] 11/14/2019 08:55:00 AM EDT [facility] ([facility]) Name Value Range Interpretation Code Description Data Maryann rce(s) Supporting Document(s) Microalbumin [Mass/volume] in Urine 99.4 mg/L [facility] ([facility] ) Creatinine [Mass/volume] in Urine 113.0 mg/dL [facility] ([facility]) Microalbumin/Creatinine [Mass Ratio] in Urine 87.9 MCG/MG 0.0-30.0 [facility] ([facility]) THE [place] STATES THAT MICROALBUMINURIA IS PRESENT IF THE MICROALBUMIN/CREATININE RATIO EXCEEDS 30 MCG/MG. THE THRESHOLD FOR CLINICAL ALBUMINURIA IS REACHED AT 300 MCG/MG. THE CLASSIFICATION OF A PATIENT SHOULD BE BASED UPON AT LEAST 2 OF 3 ABNORMAL RESULTS ON SPECIMENS COLLECTED WITHIN A 3 TO 6 MONTH TIME FRAME. ID Date Data Source [id number] 11/14/2019 08:51:00 AM EDT [facility] ([facility]) Name Value Range Interpretation Code Description Data Maryann rce(s) Supporting Document(s) Hemoglobin A1c/Hemoglobin.total in Blood 8.3 [facility] ([facility]) Glucose [Mass/volume] in Serum or Plasma 150 [facility] ([facility]) ID Date Data Source [id number] 05/16/2019 09:39:00 AM EDT [facility] ([facility]) Name Value Range Interpretation Code Description Data Maryann rce(s) Supporting Document(s) Glucose [Mass/volume] in Serum or Plasma 183 [facility] ([facility]) Hemoglobin A1c/Hemoglobin.total in Blood 7.8 [facility] ([facility]) ID Date Data Source [id number] 05/16/2019 08:28:00 AM EDT [facility] ([facility]) Name Value Range Interpretation Code Description Data Maryann rce(s) Supporting Document(s) Glucose [Mass/volume] in Serum or Plasma 183 [facility] ([facility]) Procedure Social History Code Duration Value Status Description Data Source(s ) Smoking 02/21/2020 12:00:00 AM EST Patient is a former smoker completed Patient is a former smoker [facility] ([facility]) Alcohol intake 01/17/2020 12:00:00 AM EST Current non-d alonzo of alcohol (finding) completed Current non-drinker of alcohol (finding) [facility] Tobacco use and exposure 01/17/2020 12:00:00 AM EST Never used co mpleted Never used [facility] Cigarette pack-years 01/17/2020 12:00:00 AM EST UNK completed [facility] Cigarettes smoked current (pack per day) - Reported 01/17/20 20 12:00:00 AM EST UNK completed [facility] Smoking 01/17/2020 12:00:00 AM EST Former smoker completed Former smoker [facility] Vital Signs ID Date Data Source UNK Name Value Range Interpretation Code Description Data Source(s) Oxygen saturation in Arterial blood by Pulse oximetry 98 % 98 % [facility] ([facility] ) Body mass index (BMI) [Ratio] 39.0 kg/m2 39.0 k g/m2 [facility] ([facility]) Body weight 300.00 [lb_av] 300.00 [lb_av] [facility] ([facility]) Body height 73.5 [in_i] 73.5 [in_i] [facility] ([facility]) 6'1.50" Body temperature 97.0 [degF] 97.0 [degF] [facility] ([facility] ) Heart rate 77 /min 77 /min [facility] ([facility] ) Diastolic blood pressure 80 mm[Hg] 80 mm[Hg] [facility] ([facility] ) Systolic blood pressure 128 mm[Hg] 128 mm[Hg] M [facility] ([facility] ) [place] body weight 202 [lb_av] 202 [lb_av] [facility] ([facility], ) Body mass index (BMI) [Ratio] 35.3 kg/m2 35.3 k g/m2 [facility] ([facility], ) Body weight 290.00 [lb_av] 290.00 [lb_av] [facility] ([facility], ) Body height 76 [in_i] 76 [in_i] [facility] ([facility], ) 6'4" Respiratory rate 14 /min 14 /min [facility] ( [facility], ) Heart rate 80 /min 80 /min [facility] ([facility], ) Diastolic blood pressure 85 mm[Hg] 85 mm[Hg] [facility] ([facility], ) Systolic blood pressure 130 mm[Hg] 130 mm[Hg] M [facility] ([facility], ) Oxygen saturation in Arterial blood by Pulse oximetry 97 % 97 % [facility] ([facility] ) Body mass index (BMI) [Ratio] 38.4 kg/m2 38.4 k g/m2 [facility] ([facility] ) Body weight 295.12 [lb_av] 295.12 [lb_av] MAYAEN T ([facility] ) Body height 73.5 [in_i] 73.5 [in_i] [facility] ([facility] ) 6'1.50" Heart rate 67 /min 67 /min [facility] ([facility] ) Diastolic blood pressure 80 mm[Hg] 80 mm[Hg] [facility] ([facility] ) Systolic blood pressure 120 mm[Hg] 120 mm[Hg] M [id number] ([facility] )
[2020-03-13] MEDS: NS 1,000 ML IV SCH (16:38)
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
[2020-03-13] MEDS: SUCRALFATE SUSP 1GM/10ML UD PO SCH ×2 (18:16→21:33)
[2020-03-13] MEDS: HumaLOG INSULIN (NovoLOG) PER UNIT SC SCH ×2 (18:17→21:00)
[2020-03-13] MEDS: PANTOPRAZOLE 40MG VIAL (C9113 PER 1) IV SCH (21:33)
[2020-03-13] MEDS: HEPARIN SOD (PORCINE) 5000UNITS/ML 1ML VIAL/SYRINGE SC SCH (21:34)
[2020-03-13 22:00] VITALS: BP 102/55
[2020-03-13] MEDS ORDERED: tiZANidine 4 MG TAB PO PRN (23:45)
[2020-03-13] MEDS ORDERED: PERCOCET 5MG/325MG TAB PO PRN (23:45)
[2020-03-14] VITALS (9 sets, daily range): BP systolic 94–130; BP diastolic 53–72
[2020-03-14] MEDS: LIDOCAINE 5% (LIDODERM) PATCH TD SCH ×2 (01:02→21:00)
[2020-03-14] MEDS: NS 1,000 ML IV SCH ×2 (01:02→11:30)
[2020-03-14 06:02] LABS: BASO # 0.1 10^3/uL (0.0-0.2); BASO % 0.9 % (0.0-1.0); EOS # 0.2 10^3/uL (0.0-0.5); EOS % 1.6 % (0.0-3.0); HEMATOCRIT 34.3 % (42.0-52.0); HEMOGLOBIN 10.9 g/dl (13.5-17.5); LYMPH % 23.5 % (24.0-44.0); MEAN CORPUSCULAR HEMOGLOBIN 29.8 pg (27.0-33.0); MEAN CORPUSCULAR HGB CONC 31.8 g/dl (32.0-36.5); MEAN CORPUSCULAR VOLUME 93.7 fl (80.0-96.0); MONO # 1.1 10^3/uL (0.0-0.8); MONO % 8.5 % (0.0-5.0); NEUTROPHILS # 8.2 10^3/uL (1.5-8.5); NEUTROPHILS % 64.9 % (36.0-66.0); PLATELET COUNT, AUTOMATED 333 10^3/uL (150-450); RED BLOOD COUNT 3.66 10^6/uL (4.30-6.10); WHITE BLOOD COUNT 12.6 10^3/uL (4.0-10.0)
[2020-03-14 06:24] LABS: CALCIUM LEVEL 9.7 MG/DL (8.5-10.1); CREATININE FOR GFR 1.66 MG/DL (0.70-1.30); GLOMERULAR FILTRATION RATE 45.5 (>56); POTASSIUM SERUM 4.5 MEQ/L (3.5-5.1)
[2020-03-14] MEDS: SUCRALFATE SUSP 1GM/10ML UD PO SCH ×4 (09:11→21:58)
[2020-03-14] MEDS: HumaLOG INSULIN (NovoLOG) PER UNIT SC SCH ×4 (09:11→21:59)
[2020-03-14] MEDS: PANTOPRAZOLE 40MG VIAL (C9113 PER 1) IV SCH ×2 (09:12→21:58)
[2020-03-14] MEDS: HEPARIN SOD (PORCINE) 5000UNITS/ML 1ML VIAL/SYRINGE SC SCH ×2 (09:12→21:58)
[2020-03-14] MEDS: atenoloL 25 MG TAB PO SCH (09:14)
[2020-03-14] MEDS: **NOTE PATIENT COMMENT** MISC XX SCH (09:51)
--- NOTE | 2020-03-14 11:23 | SMCUROLCON ---
Urology Consultation General Date of Consultation 03/14/20 Reason For Consultation This patient is seen for Acute Kidney Injury Pancreatitis. History of Present Illness This is a 60 y/o M w/ a PMH significant for DM2, HTN, HL, meatal stenosis (s/p dilation a few yrs ago), and hypospadias, admitted to the hospital yesterday evening for CHANG and a likely UTI. The patient notes that has been having q1 hr urinary frequency and dysuria for a few days. Yesterday he started having abdominal pain and was not feeling well, which prompted him to come to the ER. CT done in the ER was notable for mild to moderate R hydro down to the level of the UPJ, concerning for UPJO. UA appeared positive for an infection. Cr bumped to 2 from a baseline of 1. He has been on rocephin since admission but still has dysuria and urinary frequency. He is not certain if he is emptying completely. He notes that he is voiding similar to what he did prior to having his meatal dilation a few yrs ago. Past Medical History Medical History see HPI Surgical Hstory urethral meatal dilation gastric bypass Medications Current Medications Current Medications Medications (Trade) Dose Ordered Sig/Sung Route PRN Reason Start Time Stop Time Status Last Admin Dose Admin Atenolol (Tenormin) 25 mg DAILY PO 03/14/20 09:00 03/14/20 09:14 Ceftriaxone Sodium 1 gm/ Dextrose 50 ml @ 100 mls/hr Q24H IV 03/14/20 13:00 Dextrose (Dextrose 50%) 25 ml ASDIRECTED PRN IV SEE LABEL COMMENTS 03/13/20 14:00 Glucagon (Glucagon) 1 mg ASDIRECTED PRN SC SEE LABEL COMMENTS 03/13/20 14:00 Glucose (Glucose) 16 GM ASDIRECTED PRN PO SEE LABEL COMMENTS 03/13/20 14:00 Heparin Sodium (Porcine) (Heparin) 5,000 units BID SC 03/13/20 21:00 03/14/20 09:12 Home Med (Med Rec Complete!) ASDIRECTED XX 03/13/20 14:30 03/13/20 14:23 DC Insulin Human Lispro (HumaLOG INSULIN) See Protocol Table AC SC 03/13/20 17:30 03/14/20 09:11 Insulin Human Lispro (HumaLOG INSULIN) See Protocol Table QHS SC 03/13/20 21:00 Lidocaine (Lidoderm Patch) 1 patch DAILY@2100 TD 03/13/20 21:00 03/14/20 01:02 Morphine Sulfate (Morphine Sulfate Inj) 3 mg Q3HP PRN IV SEVERE PAIN (PS 8-10) 03/13/20 14:00 03/13/20 21:48 Non-Formulary Medication ( See Comment Field Below ) REMOVE LIDODERM PATCH DAILY XX 03/14/20 09:00 Ondansetron HCl (ZOFRAN INJection) 4 mg Q6HP PRN IV NAUSEA OR VOMITING 03/13/20 14:00 Oxycodone/ Acetaminophen (Percocet 5mg/ 325mg Tablet) 1 tab Q8HP PRN PO MODERATE PAIN (PS 5-7) 03/13/20 23:45 Pantoprazole Sodium (Protonix) 40 mg BID IV 03/13/20 21:00 03/14/20 09:12 Sodium Chloride 1,000 ml @ 100 mls/hr Q10H IV 03/13/20 14:00 03/14/20 01:02 Sucralfate (Carafate Suspension) 1 gm ACHS PO 03/13/20 17:30 03/14/20 09:11 Tizanidine HCl (Zanaflex) 4 mg Q12HP PRN PO SPASMS 03/13/20 23:45 Allergies Allergies: Coded Allergies: No Known Allergies (Verified , 08/20/02) Review of Systems Constitutional: Reports: Fever Pulmonary: Denies: Dyspnea, Cough Cardiovascular: Denies Chest Pain, Denies Palpitations Gastrointestinal: Reports: Abdominal Pain, Diarrhea Genitourinary: Reports: Dysuria, Frequency; Denies: Incontinence, Hematuria Musculoskeletal: Reports: Other Symptoms (denies flank pain) Neurological: Denies: Weakness, Numbness, Change in Speech Psych: Reports: Mood Normal Physical Examination General Exam: Alert, Cooperative, No Acute Distress Chest Exam: Normal air movement Heart Exam: Rate Normal Abdomen Exam: Soft; No: Tenderness Male Exam circumcised phallus; hypospadias w/ meatus appearing very stenotic; no penile lesions Skin Exam: Nl turgor and temperature Psych Exam: Mental status NL, Mood NL Vital Signs/I&O Vital Signs Date Time Temp Pulse Resp B/P (MAP) Pulse Ox O2 Delivery O2 Flow Rate FiO2 1/29/21 09:14 84 145/59 03/14/20 06:00 97.9 16 97 Room Air I&O- Last 24 Hours up to 6 AM 03/14/20 06:00 Intake Total 2925 ml Output Total 2325 ml Balance 600 ml Laboratory Data 24H Labs Laboratory Tests 2 03/13/20 10:24: Immature Granulocyte % (Auto) 1.0, Neutrophils (%) (Auto) 88.0H, Lymphocytes (%) (Auto) 6.0L, Monocytes (%) (Auto) 3.3, Eosinophils (%) (Auto) 1.0, Basophils (%) (Auto) 0.7, Neutrophils # (Auto) 11.9H, Lymphocytes # (Auto) 0.8L, Monocytes # (Auto) 0.5, Eosinophils # (Auto) 0.1, Basophils # (Auto) 0.1, Nucleated Red Blood Cells % (auto) 0.0, Urine Color YELLOW, Urine Appearance CLOUDYH, Urine pH 5.0, Urine Specific Carlton 1.014, Urine Protein 1+H, Urine Glucose (Auto)(UA) 3+H, Urine Ketones (Auto) NEGATIVE, Urine Blood 1+H, Urine Nitrite POSITIVE, Urine Bilirubin NEGATIVE, Urine Urobilinogen 0.2, Urine Leukocyte Esterase (Aut o) 3+H, Urine WBC (Auto) TNTCH, Urine RBC (Auto) 6H, Urine Hyaline Casts (Auto) 0, Urine Bacteria (Auto) 2+H, Urine Squamous Epithelial Cells 0, Urine Mucus (Auto) SMALL, Urine Sperm (Auto) , Anion Gap 9, Glomerular Filtration Rate 35.3L, Calcium Level 10.3H, Total Bilirubin 0.6, Direct Bilirubin 0.4H, Aspartate Amino Transf (AST/SGOT) 9, Alanine Aminotransferase (ALT/SGPT) 14, Alkaline Phosphatase 125H, Total Protein 8.7H, Albumin 3.9, Albumin/Globulin Ratio 0.8, Lipase 3269H 03/13/20 10:39: Bedside Glucose (Misc Panel) 198H 03/13/20 11:31: Lactic Acid Level 1.4 03/13/20 13:35: Coronavirus (COVID-19)(PCR) NEGATIVE, Influenza Type A (RT-PCR) NEGATIVE, Influenza Type B (RT-PCR) NEGATIVE, Respiratory Syncytial Virus (PCR) NEGATIVE 03/13/20 16:59: Bedside Glucose (Misc Panel) 136H 03/13/20 20:03: Bedside Glucose (Misc Panel) 230H 03/14/20 05:40: Immature Granulocyte % (Auto) 0.6, Neutrophils (%) (Auto) 64.9, Lymphocytes (%) (Auto) 23.5L, Monocytes (%) (Auto) 8.5H, Eosinophils (%) (Auto) 1.6, Basophils (%) (Auto) 0.9, Neutrophils # (Auto) 8.2, Lymphocytes # (Auto) 3.0, Monocytes # (Auto) 1.1H, Eosinophils # (Auto) 0.2, Basophils # (Auto) 0.1, Nucleated Red Blood Cells % (auto) 0.0, Anion Gap 7L, Glomerular Filtration Rate 45.5L, Calcium Level 9.7 CBC/BMP Laboratory Tests 03/13/20 10:24 03/14/20 05:40 Microbiology Microbiology 03/13/20 Campylobacter (PCR), Received Pending 03/13/20 Clostridium difficile Toxin A&B PCR, Received Pending 03/13/20 Plesiomonas shigelloides (PCR), Received Pending 03/13/20 Salmonella (PCR)(CLAIRE), Received Pending 03/13/20 Vibrio Species (PCR), Received Pending 03/13/20 Vibrio Cholerae (PCR), Received Pending 03/13/20 Yersinia enterocolitica (PCR), Received Pending 03/13/20 Enteroaggregative E. coli (PCR), Received Pending 03/13/20 Enteropathogenic E. coli (PCR), Received Pending 03/13/20 Enterotoxigenic E. coli (PCR), Received Pending 03/13/20 E. coli Shiga-like Toxin (PCR), Received Pending 03/13/20 Escherichia coli 0157 (PCR), Received Pending 03/13/20 Enteroinvasive E. coli/Shigella PCR, Received Pending 03/13/20 Cryptosporidium (PCR), Received Pending 03/13/20 Cyclospora cayetanensis (PCR), Received Pending 03/13/20 Entamoeba histolytica (PCR), Received Pending 03/13/20 Giardia lamblia (PCR), Received Pending 03/13/20 Adenovirus Type F 40/41 (PCR), Received Pending 03/13/20 Astrovirus (PCR), Received Pending 03/13/20 Norovirus GI/GII (PCR), Received Pending 03/13/20 Rotavirus A (PCR), Received Pending 03/13/20 Sapovirus I/II/IV/V (PCR), Received Pending Assessment This is a 60 y/o M admitted for CHANG and likely UTI. His Cr has improved this morning w/ hydration. His PVR shows that he is retaining about 50% w/ most recent PVR close to 300cc after voiding about 300cc. He likely has a UTI, and this will be his second in the past 3 months. I explained that he is retaining urine likely related to recurrent meatal stenosis. I recommended placing a 14Fr catheter and treating him for his UTI. I also explained that he would likely benefit from a meatoplasty at some point down the line. Plan - place a 14Fr Bender - treat UTI w/ 10 days of abx - once patient is discharged he should go home w/ the catheter in place - will arrange outpatient f/u for possible catheter removal and TOV - will also likely get him booked for a meatoplasty at that time. BOGDAN DOYLE MD Mar 14, 2020 09:57
[2020-03-14] MEDS: cefTRIAXone SOD 1 GM in D5W MINI-BAG PLUS 50 ML IV SCH (12:45)
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
[2020-03-14] MEDS ORDERED: fentaNYL 100 MCG/2 ML INJECTION (J3010) As Ordered ONE (16:33)
[2020-03-14] MEDS ORDERED: propofoL 200 MG/20 ML VIAL As Ordered ONE (16:33)
[2020-03-14] MEDS ORDERED: ePHEDrine SULFATE 25 MG/5 ML(5MG/ML) SYRINGE As Ordered ONE (16:33)
[2020-03-14] MEDS ORDERED: MIDAZOLAM INJ 2MG/2ML VIAL (J2250 PER 1MG) As Ordered ONE (16:33)
[2020-03-14] MEDS ORDERED: ONDANSETRON 4MG/2ML VIAL As Ordered ONE (16:33)
[2020-03-14] MEDS ORDERED: LIDOCAINE 2% 100MG/5ML SDV (FOR ANES.) As Ordered ONE (16:33)
[2020-03-14] MEDS ORDERED: dexameTHASONE 4 MG/ML 1ML VIAL (J1100 PER 1MG) As Ordered ONE (16:33)
[2020-03-14] MEDS ORDERED: oxyCODONE 5MG TAB As Ordered ONE (17:08)
[2020-03-14] MEDS ORDERED: ONDANSETRON 4MG/2ML VIAL IV PRN (17:45)
[2020-03-14] MEDS ORDERED: oxyCODONE 5MG TAB PO PRN (17:45)
[2020-03-14] MEDS ORDERED: LR 1,000 ML IV SCH (17:45)
[2020-03-14] MEDS ORDERED: fentaNYL 100 MCG/2 ML INJECTION (J3010) IV PRN (17:45)
[2020-03-15] MEDS: NS 1,000 ML IV SCH ×3 (00:15→13:25)
[2020-03-15 02:40] VITALS: BP 116/61
[2020-03-15] MEDS: SUCRALFATE SUSP 1GM/10ML UD PO SCH ×4 (06:37→20:33)
[2020-03-15 06:40] VITALS: BP 114/61
[2020-03-15 08:15] LABS: BASO # 0.1 10^3/uL (0.0-0.2); BASO % 0.5 % (0.0-1.0); EOS % 0.2 % (0.0-3.0); HEMATOCRIT 32.8 % (42.0-52.0); HEMOGLOBIN 10.5 g/dl (13.5-17.5); LYMPH # 1.8 10^3/uL (1.5-5.0); LYMPH % 8.6 % (24.0-44.0); MEAN CORPUSCULAR VOLUME 93.7 fl (80.0-96.0); MONO % 4.9 % (0.0-5.0); NEUTROPHILS # 17.4 10^3/uL (1.5-8.5); NEUTROPHILS % 85.2 % (36.0-66.0); PLATELET COUNT, AUTOMATED 311 10^3/uL (150-450); WHITE BLOOD COUNT 20.4 10^3/uL (4.0-10.0)
[2020-03-15 08:32] LABS: CALCIUM LEVEL 9.2 MG/DL (8.5-10.1); CREATININE FOR GFR 1.35 MG/DL (0.70-1.30); GLOMERULAR FILTRATION RATE 57.8 (>56); POTASSIUM SERUM 4.6 MEQ/L (3.5-5.1)
[2020-03-15] MEDS: atenoloL 25 MG TAB PO SCH (08:50)
[2020-03-15] MEDS: PANTOPRAZOLE 40MG VIAL (C9113 PER 1) IV SCH ×2 (08:53→20:32)
[2020-03-15] MEDS: HEPARIN SOD (PORCINE) 5000UNITS/ML 1ML VIAL/SYRINGE SC SCH ×2 (08:53→20:32)
[2020-03-15] MEDS: HumaLOG INSULIN (NovoLOG) PER UNIT SC SCH ×4 (08:54→19:59)
[2020-03-15] MEDS: **NOTE PATIENT COMMENT** MISC XX SCH (08:55)
[2020-03-15] MEDS ORDERED: FLUBLOK(EGG FREE)(QUAD)INFLUENZA VACC 0.5ML SYRINGE 18YRS & OLDER IM ONE (09:00)
[2020-03-15] MEDS: LEVEMIR (INSULIN DETEMIR) 1 UNITS/0.01ML SC SCH (09:38)
[2020-03-15 10:00] VITALS: BP 121/61
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
[2020-03-15] MEDS: cefTRIAXone SOD 1 GM in D5W MINI-BAG PLUS 50 ML IV SCH (13:25)
[2020-03-15 14:00] VITALS: BP 124/58
[2020-03-15 18:00] VITALS: BP 127/64
[2020-03-15] MEDS: LIDOCAINE 5% (LIDODERM) PATCH TD SCH (20:33)
[2020-03-15] MEDS ORDERED: LEVEMIR (INSULIN DETEMIR) 1 UNITS/0.01ML SC SCH ×2 (21:00)
[2020-03-15 22:00] VITALS: BP 139/73
[2020-03-16 05:42] VITALS: BP 128/59
[2020-03-16] MEDS: SUCRALFATE SUSP 1GM/10ML UD PO SCH (06:41)
[2020-03-16 07:39] LABS: BASO # 0.1 10^3/uL (0.0-0.2); BASO % 0.9 % (0.0-1.0); EOS # 0.3 10^3/uL (0.0-0.5); EOS % 2.5 % (0.0-3.0); HEMATOCRIT 33.5 % (42.0-52.0); HEMOGLOBIN 10.5 g/dl (13.5-17.5); LYMPH # 2.7 10^3/uL (1.5-5.0); LYMPH % 23.1 % (24.0-44.0); MEAN CORPUSCULAR HEMOGLOBIN 28.8 pg (27.0-33.0); MEAN CORPUSCULAR HGB CONC 31.3 g/dl (32.0-36.5); MONO # 0.8 10^3/uL (0.0-0.8); MONO % 6.8 % (0.0-5.0); NEUTROPHILS # 7.6 10^3/uL (1.5-8.5); NEUTROPHILS % 64.7 % (36.0-66.0); PLATELET COUNT, AUTOMATED 331 10^3/uL (150-450); RED BLOOD COUNT 3.64 10^6/uL (4.30-6.10); WHITE BLOOD COUNT 11.8 10^3/uL (4.0-10.0)
[2020-03-16 08:04] LABS: CALCIUM LEVEL 9.5 MG/DL (8.5-10.1); CREATININE FOR GFR 1.41 MG/DL (0.70-1.30); POTASSIUM SERUM 4.4 MEQ/L (3.5-5.1)
[2020-03-16] MEDS ORDERED: TOUJ1.2I SQ ×2 (08:22→11:18)
[2020-03-16] MEDS ORDERED: CEFD300CAP PO (08:22)
[2020-03-16] MEDS ORDERED: OMEP1CAP73 PO (08:22)
[2020-03-16] MEDS ORDERED: SUCR1TA PO (08:22)
[2020-03-16] MEDS: PANTOPRAZOLE 40MG VIAL (C9113 PER 1) IV SCH (08:30)
[2020-03-16] MEDS: HumaLOG INSULIN (NovoLOG) PER UNIT SC SCH (08:31)
[2020-03-16] MEDS: LEVEMIR (INSULIN DETEMIR) 1 UNITS/0.01ML SC SCH (08:31)
[2020-03-16 08:32] VITALS: BP 139/63
[2020-03-16] MEDS: **NOTE PATIENT COMMENT** MISC XX SCH (08:32)
[2020-03-16] MEDS: HEPARIN SOD (PORCINE) 5000UNITS/ML 1ML VIAL/SYRINGE SC SCH (08:32)
[2020-03-16] MEDS: atenoloL 25 MG TAB PO SCH (08:32)
[2020-03-16] MEDS ORDERED: MOM 30ML SUSPENSION UDC PO ONE (09:00)
--- NOTE | 2020-03-17 11:13 | RO ---
OPERATIVE NOTE DATE OF OPERATION: 03/14/2020 PREOPERATIVE DIAGNOSIS: Urethral stricture. POSTOPERATIVE DIAGNOSIS: Urethral stricture. PROCEDURE: Cystoscopy, direct vision internal urethrotomy, urethral meatal dilation. SURGEON: Dino Ponce MD DIRECTOR OF SALES AND MARKETING: None. ANESTHESIA: General. OPERATIVE INDICATIONS: This is a 60-year-old male with history of hypospadias and urethral strictures who presented to the hospital with signs of urinary retention. Attempts were made to place a catheter in him but would not go due to likely stricture recurrence. It was recommended he be brought to the operating room today for this procedure. DESCRIPTION OF PROCEDURE: The patient was brought to the operating room and general anesthesia was induced. Broad spectrum antibiotics had already been in infused. He was placed in dorsal lithotomy position and prepped and draped in usual sterile fashion. At this point curved metal sounds were utilized to dilate the patient's urethral meatus to 28-Romanian. Once it was done a urethrotome was inserted into the urethra and advanced down. Of note, the patient had a very narrow urethra throughout the entire course. At the bulbar urethra there was a very narrow stricture past which the scope would not go. I therefore utilized a cold knife to incise the stricture at 12 o'clock until the stricture was completely open and I was able to see some healthy tissue. Of note, the patient's stricture was approximately 3 cm in length. Once I was done I was able to advance the scope all the way into the bladder. There were no abnormalities seen except for debris inside the bladder. I then advanced a guidewire into the bladder. The scope was removed. The guidewire was then utilized to advance an 18-Romanian [employer]-tip catheter into the bladder. The balloon was filled with 10 mL of sterile water and then the guidewire was removed. The catheter was connected to gravity drainage and this marked the conclusion of the procedure. The patient was taken out of dorsal lithotomy position, awakened from anesthesia and transported to the recovery room in stable condition. ESTIMATED BLOOD LOSS: 5 mL. COMPLICATIONS: None. SPECIMEN: None. PLAN: The patient will keep his catheter in for one week and then it will be taken out in the urology office. He might benefit from having a meatoplasty at some point down the line given recurrent meatal stenosis. FELIZD
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
== END 2020-03-16 11:26 | disposition home or self-care (01) | DRG 699 ==
LOC: M ED 09:49 → M ED INP 13:49 → M MSPAV 15:25
PROVIDERS: ADMIT Internal Medicine Nephrology; ATTEND Internal Medicine Nephrology
PROC: 0T7D8ZZ Dilation of Urethra, Via Natural or Artificial Opening Endoscopic (ICD-10-PCS; principal; 2020-03-14 16:30)
DX: Q64.33 Congenital stricture of urinary meatus (principal); C95.10 Chronic leukemia of unspecified cell type not having achieved remission; N39.0 Urinary tract infection, site not specified; N17.9 Acute kidney failure, unspecified; N35.912 Unspecified bulbous urethral stricture, male; E11.9 Type 2 diabetes mellitus without complications; I10 Essential (primary) hypertension; E78.5 Hyperlipidemia, unspecified; G47.33 Obstructive sleep apnea (adult) (pediatric); D72.821 Monocytosis (symptomatic); D64.9 Anemia, unspecified; K64.8 Other hemorrhoids; E83.52 Hypercalcemia; K29.70 Gastritis, unspecified, without bleeding; M54.5 Low back pain; M54.2 Cervicalgia; Z20.822 Contact with and (suspected) exposure to COVID-19; Z98.84 Bariatric surgery status

== ENCOUNTER → 2020-07-10 | Outpatient (CLI) | payer MEDICARE, MEDICAID ==
[~2020-07-10] MED LIST changes: +CEFD300CAP PO; +FARX1TAB5 PO; +FERR324T21 PO; -FERR325T16 PO; +HYDR-3490 PO; -HYDR25TAB PO; -LISI-542 PO; +LISI-898 PO; +LOPI600T PO; +MELO7.5T35 PO; +METF-838 PO; +SUCR1TA PO; +TOUJ1.2I SC; +TRUL10IN SC; +ZOLP5TAB PO
[2020-07-10 10:50] LABS: HEMATOCRIT 33.5 % (42.0-52.0); HEMOGLOBIN 10.8 g/dl (13.5-17.5); MEAN CORPUSCULAR HEMOGLOBIN 30.3 pg (27.0-33.0); MEAN CORPUSCULAR HGB CONC 32.2 g/dl (32.0-36.5); MEAN CORPUSCULAR VOLUME 94.1 fl (80.0-96.0); PLATELET COUNT, AUTOMATED 310 10^3/uL (150-450); RED BLOOD COUNT 3.56 10^6/uL (4.30-6.10); WHITE BLOOD COUNT 6.7 10^3/uL (4.0-10.0)
--- NOTE | 2020-07-10 10:58 | REP ---
INDICATION: HTN- LABS AND EKG FIRST COMPARISON: 06/14/2017 TECHNIQUE: PA and lateral. FINDINGS: The mediastinum and cardiac silhouette are normal. The lung menendez are clear and without acute consolidation, effusion, or pneumothorax. The skeletal structures are intact and normal. IMPRESSION: No acute cardiopulmonary process. <Electronically signed by Ferny Naranjo > 07/10/20 [id number]
[2020-07-10 11:05] LABS: INR 0.96
[2020-07-10 11:36] LABS: ALBUMIN 3.7 GM/DL (3.2-5.2); ALT/SGPT 17 U/L (12-78); BILIRUBIN,TOTAL 0.5 MG/DL (0.2-1.0); BLOOD UREA NITROGEN 21 MG/DL (7-18); CALCIUM LEVEL 9.4 MG/DL (8.5-10.1); CARBON DIOXIDE LEVEL 28 MEQ/L (21-32); CHLORIDE LEVEL 110 MEQ/L (98-107); CHOLESTEROL LEVEL 126 MG/DL (<200); CHOLESTEROL RISK RATIO 3.073 (<5); CREATININE FOR GFR 1.21 MG/DL (0.70-1.30); GLOMERULAR FILTRATION RATE > 60.0 (>56); GLUCOSE, FASTING 105 MG/DL (70-100); HDL CHOLESTEROL 41 MG/DL (>40); LDL CHOLESTEROL 70 MG/DL (<100); NON-HDL-C 85 MG/DL; POTASSIUM SERUM 4.9 MEQ/L (3.5-5.1); PROSTATIC SPECIFIC AG MONITOR 0.73 NG/ML (< 4.00); SODIUM LEVEL 141 MEQ/L (136-145); TOTAL PROTEIN 7.8 GM/DL (6.4-8.2); TRIGLYCERIDES LEVEL 76 MG/DL (<150)
[2020-07-10 11:42] LABS: HEMOGLOBIN A1c 6.9 %
--- NOTE | 2020-07-10 17:18 | ECGEPIP ---
[facility] Test Date: 2020-07-10 Pat Name: ZAC MCCORMICK Department: Room: - Gender: Male Education Paraprofessional: IFEANYI : [id number] Requested By: Mary Diaz Order Number: [id number] Reading MD: Thomas Simpson Measurements Intervals [place] Rate: 57 P: 38 CO: 158 QRS: 38 QRSD: 114 T: 22 QT: 432 QTc: 420 Interpretive Statements Sinus bradycardia Incomplete right bundle branch block Nonspecific T wave abnormality Compared to prior tracing of 12/09/2019, heart rate is slower Electronically Signed on 07-10-2020 17:17:52 EDT by Thomas Simpson
== END ==
LOC: M LAB 10:09
PROVIDERS: ATTEND Family Medicine
DX: I10 Essential (primary) hypertension (principal); Z79.01 Long term (current) use of anticoagulants; R97.20 Elevated prostate specific antigen [PSA]

== ENCOUNTER → 2020-07-17 | Outpatient (CLI) | payer MEDICARE, MEDICAID | LOC: M LABSMTC 09:37 | PROVIDERS: ATTEND Anesthesiology | DX: Z01.818 Encounter for other preprocedural examination (principal); Z11.52 Encounter for screening for COVID-19 ==

== ENCOUNTER → 2020-07-21 | Outpatient (CLI) | payer MEDICARE, MEDICAID ==
[~2020-07-21] MED LIST changes: +E-Z-GAS II EFFERVESCENT PACKET (SODIUM BICARB./CITRIC ACID/SIMETHICONE) As Ordered ONE; +E-Z-HD 98% w/w 340GM SUSP BTL As Ordered ONE; +E-Z-PAQUE 96% w/w SUSP 176GM BTL As Ordered ONE
--- NOTE | 2020-07-21 18:02 | REP ---
INDICATION: DYSPHAGIA, UNSPECIFIED. COMPARISON: None. TECHNIQUE: The procedure was performed under the direct supervision of Dr. Willingham. The images were reviewed with Dr. Willingham. Liquid barium was given in the erect position as well as liquid barium in the prone oblique position in order to perform a single contrast upper GI examination. Additionally, liquid barium was given at the end of the examination in order to perform a small bowel follow through. A combination od fluoroscopy, spot films and last image hold technology was utilized, 1.8 minutes of fluoro time was utilized for this procedure. FINDINGS: The client services specialist film shows no organomegaly or pathological masses. The intestinal gas pattern is non-specific. There are bowel sutures and surgical clips noted in the epigastric region and left abdomen consistent with the patient's history of gastric bypass. The oral and pharyngeal stages of deglutition are unremarkable. Esophageal transport is prompt and efficient and there is no esophagitis, stricture, mucosal ring or hiatal hernia. Gastroesophageal reflux is not demonstrated on this examination. The patient is status post gastric bypass. Contrast passes through the stomach pouch and anastomosis without delay. There is no evidence of gastritis neoplasm or ulcer disease. The visualized portion of the proximal small bowel appears normal in course and caliber. The barium column was followed through the small bowel to the level of the terminal ileum. Small bowel transit time is approximately 310 minutes.. During fluoroscopy gentle palpation shows all loops are freely movable and pliable. There are no fixed or angulated loops. The small bowel mucosal pattern is normal in course and caliber. There is no transition to suggest a partial small-bowel obstruction. Spot filming of the terminal ileum shows it to be unremarkable. IMPRESSION: Postsurgical changes consistent with the patient's history of gastric bypass. Small bowel transit time was approximately 310 minutes. Otherwise, single contrast upper GI and small-bowel follow-through examination is within normal limits. <Electronically signed by Osmar Doyle > 07/21/20 2249 <Electronically signed by Richard Willingham > 07/21/20 2275
== END ==
LOC: M RAD 09:24
PROVIDERS: ATTEND Surgery
DX: Z98.84 Bariatric surgery status (principal); R13.10 Dysphagia, unspecified

== ENCOUNTER 2020-07-22 07:02 | Day surgery (SDC) | payer MEDICARE, MEDICAID ==
[~2020-07-22] VITALS: Ht 193 cm; Wt 132.4 kg
[~2020-07-22 07:02] MED LIST changes: -E-Z-GAS II EFFERVESCENT PACKET (SODIUM BICARB./CITRIC ACID/SIMETHICONE) As Ordered ONE; -E-Z-HD 98% w/w 340GM SUSP BTL As Ordered ONE; -E-Z-PAQUE 96% w/w SUSP 176GM BTL As Ordered ONE; +LIDOCAINE 1% MDV 20ML VIAL SQ PRN; +LR 1,000 ML IV ONE; +ceFAZolin SOD 1 GM in D5W MINI-BAG PLUS 50 ML IV ONE
[2020-07-22] MEDS ORDERED: BUPIVACAINE/EPIN 0.25% 30 ML VIAL As Ordered ONE (08:07)
[2020-07-22] MEDS ORDERED: atenoloL 50 MG TAB PO ONE (08:20)
[2020-07-22 08:22] VITALS: BP 165/83
[2020-07-22] MEDS ORDERED: propofoL 200 MG/20 ML VIAL As Ordered ONE ×2 (08:23→08:52)
[2020-07-22] MEDS ORDERED: LIDOCAINE 2% 100MG/5ML SDV (FOR ANES.) As Ordered ONE (08:23)
[2020-07-22] MEDS ORDERED: ROCURONIUM BROMIDE 50 MG/5 ML VIAL As Ordered ONE ×2 (08:23→08:52)
[2020-07-22] MEDS ORDERED: MIDAZOLAM INJ 2MG/2ML VIAL (J2250 PER 1MG) As Ordered ONE (08:23)
[2020-07-22] MEDS ORDERED: dexameTHASONE 4 MG/ML 1ML VIAL (J1100 PER 1MG) As Ordered ONE (08:23)
[2020-07-22] MEDS ORDERED: fentaNYL 250 MCG/5 ML INJECTION (J3010) As Ordered ONE (08:23)
[2020-07-22] MEDS ORDERED: SEVOFLURANE INHAL SOLN 250 ML BTL As Ordered ONE (09:05)
[2020-07-22] MEDS ORDERED: ACETAMINOPHEN 1000MG 100ML IV BTL (OFIRMEV) (J0131 PER 10MG) As Ordered ONE (09:05)
[2020-07-22] MEDS ORDERED: SUGAMMADEX SODIUM 500 MG/5 ML VIAL (BRIDION) As Ordered ONE (09:05)
[2020-07-22] MEDS ORDERED: ESMOLOL INJ 100MG/10ML VIAL As Ordered ONE (09:06)
[2020-07-22] MEDS ORDERED: METOCLOPRAMIDE INJ 10MG/2ML VIAL (J2765 PER 1) As Ordered ONE (09:08)
[2020-07-22] MEDS ORDERED: LABETALOL 100MG/20ML VIAL As Ordered ONE (09:45)
[2020-07-22] MEDS ORDERED: ONDANSETRON 4MG/2ML VIAL As Ordered ONE ×2 (09:54→10:35)
[2020-07-22] MEDS ORDERED: ONDANSETRON 4MG/2ML VIAL IV PRN (10:50)
[2020-07-22] MEDS ORDERED: METOCLOPRAMIDE INJ 10MG/2ML VIAL (J2765 PER 1) IV PRN (10:50)
[2020-07-22] MEDS ORDERED: LR 1,000 ML IV SCH (10:50)
[2020-07-22] MEDS ORDERED: oxyCODONE 5MG TAB PO PRN (10:50)
[2020-07-22] MEDS ORDERED: fentaNYL 100 MCG/2 ML INJECTION (J3010) IV PRN (10:50)
[2020-07-22] MEDS ORDERED: PERCOCET 5MG/325MG TAB PO PRN (10:55)
[2020-07-22] MEDS ORDERED: KETOROLAC 30 MG/ML 1ML VIAL IV SCH (11:00)
[2020-07-22] MEDS: HYDROMORPHONE HCL 0.5 MG/ 0.5 ML SYRINGE (J1170 PER 1) IV PRN ×3 (11:04→11:16)
[2020-07-22] MEDS ORDERED: PROMETHAZINE INJ 25 MG/ML VIAL (J2550) IV ONE (11:10)
[2020-07-22 12:50] VITALS: BP 121/62
== END 2020-07-22 12:50 | disposition home or self-care (01) ==
LOC: M SDC 07:02
PROVIDERS: ATTEND Surgery
DX: K80.10 Calculus of gallbladder with chronic cholecystitis without obstruction (principal); I10 Essential (primary) hypertension; E78.5 Hyperlipidemia, unspecified; E11.9 Type 2 diabetes mellitus without complications; Z79.4 Long term (current) use of insulin; Z79.899 Other long term (current) drug therapy; N40.0 Benign prostatic hyperplasia without lower urinary tract symptoms; K21.9 Gastro-esophageal reflux disease without esophagitis; Z98.84 Bariatric surgery status
CPT/HCPCS: 47562; 88304; J0131; J0690; J1100; J1170; J1885; J2250; J2405; J2765; J3010; S2900

== ENCOUNTER 2020-09-27 09:52 | Inpatient (IN) | payer MEDICARE, MEDICAID ==
[~2020-09-27] VITALS: Ht 193 cm; Wt 129.2 kg
[~2020-09-27 09:52] MED LIST changes: -LIDOCAINE 1% MDV 20ML VIAL SQ PRN; -LR 1,000 ML IV ONE; +OMEP40CA4 PO; -OMEP40CA97 PO; -ceFAZolin SOD 1 GM in D5W MINI-BAG PLUS 50 ML IV ONE
[2020-09-27] MEDS ORDERED: NS 1,000 ML IV ONE (10:40)
--- NOTE | 2020-09-27 11:09 | REP ---
INDICATION: abd pain. COMPARISON: 06/05/2016 TECHNIQUE: PA chest and two views of the abdomen FINDINGS: PA chest: The lungs are clear. The heart is not enlarged. There is no failure or pleural effusion. Abdomen: There is a mild ileus involving small bowel loops in the left upper quadrant and mid abdomen. There is no evidence of obstruction or free intraperitoneal air. Postoperative changes noted after cholecystectomy and suture re-evaluate left upper quadrant. There is no organomegaly PN IMPRESSION: PA chest negative. No free air or signs of obstruction. Mild ileus involving small bowel loops. <Electronically signed by Alexis Soto > 09/27/20 [id number]
[2020-09-27] MEDS ORDERED: ONDANSETRON 4MG/2ML VIAL IV ONE (11:10)
[2020-09-27] MEDS: MORPHINE 2 MG/ML 1ML VIAL (J2270) IV PRN ×2 (11:45→13:29)
[2020-09-27] MEDS ORDERED: TRUL0.5I (11:57)
[2020-09-27 12:01] LABS: BASO % 0.5 % (0.0-1.0); EOS % 0.2 % (0.0-3.0); HEMATOCRIT 33.6 % (42.0-52.0); HEMOGLOBIN 10.9 g/dl (13.5-17.5); LYMPH # 1.3 10^3/uL (1.5-5.0); LYMPH % 32.4 % (24.0-44.0); MEAN CORPUSCULAR HEMOGLOBIN 30.5 pg (27.0-33.0); MEAN CORPUSCULAR HGB CONC 32.4 g/dl (32.0-36.5); MEAN CORPUSCULAR VOLUME 94.1 fl (80.0-96.0); MONO # 0.4 10^3/uL (0.0-0.8); MONO % 9.3 % (2.0-8.0); NEUTROPHILS # 2.3 10^3/uL (1.5-8.5); NEUTROPHILS % 56.9 % (36.0-66.0); PLATELET COUNT, AUTOMATED 212 10^3/uL (150-450); RED BLOOD COUNT 3.57 10^6/uL (4.30-6.10); WHITE BLOOD COUNT 4.1 10^3/uL (4.0-10.0)
[2020-09-27 12:38] LABS: ALBUMIN 3.1 GM/DL (3.2-5.2); ALT/SGPT 27 U/L (12-78); BILIRUBIN,DIRECT 0.6 MG/DL (0.0-0.2); BILIRUBIN,TOTAL 1.1 MG/DL (0.2-1.0); CK-MB VALUE MASS < 1.0 NG/ML (<3.6); CPK CREATINE PHOSPHOKINASE 85 U/L (39-308); LIPASE 280 U/L (73-393); MB/CK RELATIVE INDEX 1.18 (< OR =4); TOTAL PROTEIN 7.6 GM/DL (6.4-8.2); TROPONIN I < 0.02 NG/ML (< 0.10)
--- NOTE | 2020-09-27 13:00 | REP ---
INDICATION: abd pain. COMPARISON: None. TECHNIQUE: Unenhanced scans obtained. FINDINGS: Infiltrates in the lower lungs with a characteristic pattern of COVID bed most pronounced on the left side. The gallbladder has been removed. The liver shows normal size and attenuation. Pancreas normal size and attenuation. No mass or edema. Normal size and attenuation PA Aorta normal caliber. Adrenal glands not enlarged. Spleen normal size and attenuation. Ureteropelvic junction obstruction right kidney right kidney otherwise unremarkable. Left kidney no abnormality. Ureters not dilated. Bowel-gas pattern normal. Large and small bowel show normal mucosal pattern, caliber and configuration. No mass, adenopathy or inflammatory change in the abdomen or pelvis. Diverticula in the sigmoid colon without evidence of diverticulitis. IMPRESSION: Infiltrates in the lungs consistent with COVID pneumonia. No acute process in the abdomen. Right ureteropelvic junction obstruction. Diverticulosis without evidence of diverticulitis. <Electronically signed by Alexis Soto > 09/27/20 [id number]
--- NOTE | 2020-09-27 13:08 | ECGEPIP ---
[facility] - ED Test Date: 2020-09-27 Pat Name: ZAC MCCORMICK Department: Room: - Gender: Male Functional Tester: BEN : [id number] Requested By: Swapna Grant Order Number: [id number] Reading MD: Tad Cade Measurements Intervals [place] Rate: 66 P: 34 NC: 156 QRS: 31 QRSD: 110 T: 28 QT: 400 QTc: 419 Interpretive Statements Normal sinus rhythm Incomplete right bundle branch block POOR R WAVE PROGRESSION SIMILAR TO 07/10/20 Electronically Signed on 09-27-2020 13:08:01 EDT by Tad Cade
[2020-09-27 14:06] LABS: RSV AMPLIFICATION NEGATIVE (NEGATIVE)
[2020-09-27] MEDS: NS 1,000 ML IV SCH ×2 (14:20→21:16)
[2020-09-27] MEDS ORDERED: ATEN25TA PO (15:08)
[2020-09-27] MEDS ORDERED: TRUL0.5I SC (15:08)
[2020-09-27] MEDS ORDERED: OMEP-221 PO (15:08)
[2020-09-27] MEDS ORDERED: HOME MED LIST COMPLETE! XX SCH (15:10)
[2020-09-27] MEDS ORDERED: DEXTROSE 50% 50 ML SYRINGE IV PRN (15:15)
[2020-09-27] MEDS ORDERED: GLUCAGON INJ 1MG VIAL SC PRN (15:15)
[2020-09-27] MEDS ORDERED: GLUCOSE 4GM CHEW TABLET PO PRN (15:15)
[2020-09-27] MEDS ORDERED: PERCOCET 5MG/325MG TAB PO PRN (15:15)
[2020-09-27 15:32] LABS: C REACTIVE PROTEIN QUANTITATIV 7.97 MG/DL (0.00-0.30); FERRITIN 1187 NG/ML (26-388); LDH LACTATE DEHYDROGENASE 250 U/L (87-241)
[2020-09-27] MEDS ORDERED: ONDANSETRON 4MG/2ML VIAL IV PRN (15:45)
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
[2020-09-27 16:45] VITALS: BP 119/68
[2020-09-27 16:52] VITALS: O2SAT 94
[2020-09-27] MEDS: tiZANidine 4 MG TAB PO SCH ×2 (17:10→21:17)
[2020-09-27] MEDS: HumaLOG INSULIN (NovoLOG) PER UNIT SC SCH ×2 (17:10→21:00)
[2020-09-27 18:01] LABS: INR 1.15; PROTHROMBIN TIME 15.1 SECONDS (12.7-14.5)
[2020-09-27 18:02] LABS: PARTIAL THROMBOPLASTIN TIME 42.9 SECONDS (25.9-37.0)
[2020-09-27 18:04] LABS: D-DIMER QUANT 617.27 ng/ml (<500)
[2020-09-27] MEDS: cefTRIAXone SOD 1 GM in D5W MINI-BAG PLUS 50 ML IV SCH (18:15)
[2020-09-27] MEDS: LACTOBACILLUS ACIDOPHILUS CAP (BACID) PO SCH (18:27)
[2020-09-27 20:00] VITALS: O2SAT 95
[2020-09-27] MEDS: ATORVASTATIN 20 MG TAB PO SCH (21:17)
[2020-09-27 22:00] VITALS: BP 102/57
[2020-09-28] VITALS (9 sets, daily range): BP systolic 105–131; BP diastolic 55–71; O2SAT 91–97
[2020-09-28] MEDS: NS 1,000 ML IV SCH (06:18)
[2020-09-28] MEDS: HumaLOG INSULIN (NovoLOG) PER UNIT SC SCH ×4 (07:30→21:00)
[2020-09-28 07:57] LABS: HEMOGLOBIN 10.4 g/dl (13.5-17.5); MEAN CORPUSCULAR HEMOGLOBIN 30.7 pg (27.0-33.0); MEAN CORPUSCULAR HGB CONC 32.5 g/dl (32.0-36.5); MEAN CORPUSCULAR VOLUME 94.4 fl (80.0-96.0); PLATELET COUNT, AUTOMATED 198 10^3/uL (150-450); RED BLOOD COUNT 3.39 10^6/uL (4.30-6.10); WHITE BLOOD COUNT 3.4 10^3/uL (4.0-10.0)
[2020-09-28 08:22] LABS: BLOOD UREA NITROGEN 28 MG/DL (7-18); CALCIUM LEVEL 8.9 MG/DL (8.5-10.1); CARBON DIOXIDE LEVEL 22 MEQ/L (21-32); CHLORIDE LEVEL 109 MEQ/L (98-107); CREATININE FOR GFR 1.25 MG/DL (0.70-1.30); GLOMERULAR FILTRATION RATE > 60.0 (>56); GLUCOSE, FASTING 85 MG/DL (70-100); POTASSIUM SERUM 4.3 MEQ/L (3.5-5.1); SODIUM LEVEL 138 MEQ/L (136-145)
[2020-09-28] MEDS: LACTOBACILLUS ACIDOPHILUS CAP (BACID) PO SCH ×3 (08:45→18:23)
[2020-09-28] MEDS: tiZANidine 4 MG TAB PO SCH ×3 (08:48→21:01)
[2020-09-28] MEDS ORDERED: atenoloL 25 MG TAB PO SCH (09:00)
[2020-09-28] MEDS ORDERED: ENOXAPARIN 40MG/0.4ML SYRINGE (J1650 PER 10MG) SC SCH (09:00)
[2020-09-28] MEDS ORDERED: LEVEMIR (INSULIN DETEMIR) 1 UNITS/0.01ML SC SCH (09:00)
[2020-09-28] MEDS ORDERED: FERROUS GLUCONATE 324 MG TAB PO SCH (09:00)
--- NOTE | 2020-09-28 14:16 | IPNPDOC ---
Subjective Date Seen The patient was seen on 09/28/20. Subjective Chief Complaint/HPI Mr. Muniz is a 60-year-old male with meatal and right urethral strictures, diabetes mellitus type 2, and obesity who presents with 3 to 4 days of diarrhea and lightheadedness and found to have CHANG, UTI, and Covid positive status. This morning, he denies any chest pain, dyspnea, or back pain. I called bacteriology about urine culture. There is a gram negative mara growing >100,000cfu. They should have results tomorrow morning. Otherwise, renal function about baseline. Objective Physical Examination General Exam: Positive: Alert, Cooperative Eye Exam: Positive: EOMI; Negative: Sclera icteric ENT Exam: Positive: Atraumatic Neck Exam: Positive: Supple Chest Exam: Positive: Clear to auscultation Heart Exam: Positive: Rate Normal, Regular Rhythm Abdomen Exam: Positive: Normal bowel sounds, Soft; Negative: Tenderness Extremity Exam: Negative: Edema Neuro Exam: Positive: Normal Speech, Cranial Nerves 3-12 NL Psych Exam: Positive: Mental status NL, Mood NL Assessment /Plan Assessment Mr. Muniz is a 60-year-old male with meatal and right urethral strictures, diabetes mellitus type 2, and obesity who presents with 3 to 4 days of diarrhea and lightheadedness and found to have CHANG, UTI, and Covid positive status. Patient's CHANG is most likely secondary to poor oral intake and diarrhea. Lisinopril will be held. Patient will be put on IVF. In the past, patient's urine cultures have grown Serratia marcescens, group B strep, and E. coli all sensitive to ceftriaxone. Patient is Covid positive without Covid symptoms. Unclear how long ago patient became Covid positive as patients may be Covid positive for several months. Plan/VTE VTE Prophylaxis Ordered?: Yes Plan 1. CHANG secondary to prerenal disease Patient had diarrhea and poor oral intake Hold lisinopril and Metformin Start IVF and supportive care -Renal function now close to baseline 2. Right ureteral pelvic junction obstruction Patient's been following Dr. Ponce for right ureter stricture and meatal stricture Patient should continue following Dr. Ponce outpatient We will check a bladder scan 3. UTI Pending urine culture Ceftriaxone day 2 4. Asymptomatic Covid Patient is unvaccinated No respiratory symptoms Isolation precautions (droplet precautions) Supportive care 5. Diarrhea Unknown etiology, but resolved with Imodium No leukocytosis and CT abdomen pelvis does not demonstrate any acute process -Advance diet to solid diet and probiotic 6. Hypertension Continue atenolol Hold lisinopril due to CHANG 7. Hyperlipidemia Continue atorvastatin and gemfibrozil 8. Diabetes mellitus Continue long-acting insulin as Levemir Sliding scale insulin -Carbohydrate consistent diet 9. Chronic pain Continue Percocet and Zanaflex 10. DVT prophylaxis Lovenox Disposition: Renal function about baseline. Pending urine culture results. Possible D/C when urine culture results return VS, I&O, 24H, Fishbone Vital Signs/I&O Vital Signs Date Time Temp Pulse Resp B/P (MAP) Pulse Ox O2 Delivery O2 Flow Rate FiO2 09/28/20 14:08 99.6 66 17 120/71 (87) 98 Room Air I&O- Last 24 Hours up to 6 AM 09/28/20 06:00 Intake Total 3100 ml Output Total 1925 ml Balance 1175 ml Laboratory Data 24H LABS Laboratory Tests 2 09/27/20 16:47: Bedside Glucose (Misc Panel) 104 09/27/20 17:38: Prothrombin Time 15.1H, Prothromb Time International Ratio 1.15, Activated Partial Thromboplast Time 42.9H, Fibrinogen 512H, D-Dimer, Quantitative 617.27H 09/27/20 20:03: Bedside Glucose (Misc Panel) 178H 09/28/20 07:13: Nucleated Red Blood Cells % (auto) 0.0, Anion Gap 7L, Glomerular Filtration Rate > 60.0, Calcium Level 8.9 09/28/20 11:51: Bedside Glucose (Misc Panel) 163H CBC/BMP Laboratory Tests 09/28/20 07:13 Microbiology Microbiology 09/27/20 Blood Culture, Received Pending 09/27/20 Blood Culture, Received Pending 09/27/20 Urine Culture, Received Pending SALAS SANTIAGO DO Sep 28, 2020 14:16
[2020-09-28] MEDS: cefTRIAXone SOD 1 GM in D5W MINI-BAG PLUS 50 ML IV SCH (18:24)
[2020-09-28] MEDS ORDERED: ACETAMINOPHEN TAB 650MG DOSE (2X325MG) PO PRN (20:55)
[2020-09-28] MEDS: ATORVASTATIN 20 MG TAB PO SCH (21:01)
[2020-09-28] MEDS ORDERED: IBUPROFEN 400MG TAB PO ONE (23:05)
[2020-09-29] VITALS: O2SAT 94
[2020-09-29 04:00] VITALS: BP 137/65; O2SAT 94
[2020-09-29 07:13] LABS: HEMATOCRIT 30.7 % (42.0-52.0); MEAN CORPUSCULAR HEMOGLOBIN 30.5 pg (27.0-33.0); MEAN CORPUSCULAR HGB CONC 32.6 g/dl (32.0-36.5); MEAN CORPUSCULAR VOLUME 93.6 fl (80.0-96.0); PLATELET COUNT, AUTOMATED 207 10^3/uL (150-450); RED BLOOD COUNT 3.28 10^6/uL (4.30-6.10); WHITE BLOOD COUNT 3.7 10^3/uL (4.0-10.0)
[2020-09-29 07:42] LABS: CALCIUM LEVEL 8.4 MG/DL (8.5-10.1); CREATININE FOR GFR 1.33 MG/DL (0.70-1.30); GLOMERULAR FILTRATION RATE 58.8 (>56)
[2020-09-29] MEDS ORDERED: CEFD1CAP8 PO (09:26)
--- NOTE | 2020-09-29 13:20 | DS.PDOC ---
Discharge Summary General Date of Admission Sep 27, 2020 at 15:06 Date of Discharge Sep 29, 2020 Discharge Summary PROCEDURES PERFORMED DURING STAY: None. ADMITTING DIAGNOSES: 1. HARI secondary to prerenal disease 2. Chronic right ureteropelvic junction obstruction 3. UTI 4. Asymptomatic Covid infection 5. Diarrhea 6. Hypertension 7. Hyperlipidemia 8. Diabetes mellitus type 2 9. Chronic pain DISCHARGE DIAGNOSES: 1. HARI secondary to prerenal disease 2. Chronic right ureteropelvic junction obstruction 3. Enterobacter UTI 4. Asymptomatic Covid infection 5. Diarrhea 6. Hypertension 7. Hyperlipidemia 8. Diabetes mellitus type 2 9. Chronic pain COMPLICATIONS/CHIEF COMPLAINT: Hari,Covid-19,Uti. HISTORY OF PRESENT ILLNESS: Mr. Choudhary is a 60-year-old male with meatal and right urethral strictures, diabetes mellitus type 2, and obesity who presents with 3 to 4 days of diarrhea and lightheadedness and found to have HARI, UTI, and Covid positive status. A week prior, patient was feeling well. Denied any recent travel, hospitalizations, or antibiotics. Denies any sick contacts. D enies eating anything out of the ordinary or strange. About a week ago, he started to have watery diarrhea. What ever he ate would run right through him. In addition he had poor appetite, and he did not feel like eating. About 3 days ago he took Imodium and has not had a bowel movement since then. He has never had C. difficile before in the past. Despite his diarrhea resolving, he continued to have poor appetite and started to have lightheadedness and dizziness. He came into the ED for evaluation. While here, he has been afebrile and nontachycardic. He is doing well at room air. CT of the abdomen pelvis demonstrated right ureteral pelvic junction obstruction and signs of Covid pneumonia. Patient has been following Dr. Ponce for his right obstruction and medial stricture. Patient was surprised that he was Covid positive. Denies any known Covid contacts. He has not been vaccinated for Covid. Otherwise work-up demonstrates HARI and UTI. Patient will be admitted for acute kidney injury and urinary tract infection. HOSPITAL COURSE: Patient did well during hospitalization. He did not develop any Covid-like symptoms. In addition, he did not have any more diarrhea. Renal function improved with IV fluids. Patient's creatinine did increase a little today due to administering of ibuprofen, but still within range of baseline. Urine culture results returned back with 2 Enterobacter organisms. Similar sensitivities except 1 was intermediate to nitrofurantoin while the other was resistant to nitrofurantoin. Both organisms were resistant to cefazolin but sensitive to ceftriaxone. Patient will be put on oral cefdinir. This morning patient felt well and felt ready for home. Patient was subsequently discharged home today. DISCHARGE MEDICATIONS: Please see below. ALLERGIES: Please see below. PHYSICAL EXAMINATION ON DISCHARGE: VITAL SIGNS: Please see below. GENERAL: Comfortable, in no apparent distress. HEENT: Head normocephalic/atraumatic, EOMI, sclera clear. NECK: Supple. RESPIRATORY: Lungs clear to auscultation bilaterally, no rales, wheeze or rhonc hi. CARDIOVASCULAR: Regular rate and rhythm. ABDOMEN: Soft, nontender, no guarding or rebound tenderness. Normal bowel sounds. MUSCLE SKELETAL: Muscle strength 5/5 in all extremities. NEUROLOGICAL: CN 3-12 grossly intact, no focal deficits noted. PSYCHOLOGICAL: Normal mood and affect LABORATORY DATA: Please see below. IMAGING: Radiologist interpretation CT abdomen pelvis without contrast Infiltrates in the lungs consistent with COVID pneumonia. No acute process in the abdomen. Right ureteropelvic junction obstruction. Diverticulosis without evidence of diverticulitis. PROGNOSIS: Good ACTIVITY: As tolerated. DIET: Carbohydrate consistent diet. DISCHARGE PLAN: Home DISPOSITION: Home. DISCHARGE INSTRUCTIONS: 1. Please follow-up with your PCP in 1 week ITEMS TO FOLLOWUP ON ON OUTPATIENT: 1. Patient should follow up with his urologist for his right ureteropelvic junction obstruction DISCHARGE CONDITION: Stable. Total time spent on discharge planning, discharge summary, medication reconciliation: 45 minutes Vital Signs/I&Os Vital Signs Date Time Temp Pulse Resp B/P (MAP) Pulse Ox O2 Delivery O2 Flow Rate FiO2 09/29/20 04:00 97.6 70 19 137/65 (89) 94 Room Air I&O- Last 24 Hours up to 6 AM 09/29/20 06:00 Intake Total 2690 ml Output Total 3200 ml Balance -510 ml Laboratory Data Labs 24H Laboratory Tests 2 09/28/20 16:51: Bedside Glucose (Misc Panel) 104 09/28/20 20:12: Bedside Glucose (Misc Panel) 210H 09/29/20 06:51: Nucleated Red Blood Cells % (auto) 0.0, Anion Gap 5L, Glomerular Filtration Rate 58.8, Calcium Level 8.4L CBC/BMP Laboratory Tests 09/29/20 06:51 FSBS Laboratory Tests Test 09/28/20 16:51 09/28/20 20:12 Range/Units Bedside Glucose (Misc Panel) 104 210 70-105 MG/DL Microbiology Microbiology 09/27/20 Blood Culture - Preliminary, Resulted No growth after 24 hours . All specim... 09/27/20 Blood Culture - Preliminary, Resulted No growth after 24 hours . All specim... 09/27/20 Urine Culture - Final, Complete Enterobacter Cloacae Complex Enterobacter Cloacae Complex#2 Discharge Medications Scheduled Atenolol (Atenolol) 25 Mg Tablet, 25 MG PO DAILY, (Reported) Atorvastatin Calcium (Atorvastatin Calcium) 40 Mg Tab, 40 MG PO QHS, (Reported) Cefdinir (Cefdinir) 300 Mg Capsule, 300 MG PO BID Dulaglutide (Trulicity) 1.5 Mg/0.5 Ml Pen.injctr, 1.5 MG SC QWEEK, (Reported) SATURDAYS Ferrous Gluconate (Ferrous Gluconate) 324 Mg Tablet, 324 MG PO DAILY, (Reported) Gemfibrozil (Lopid) 600 Mg Tablet, 600 MG PO BID, (Reported) Insulin Glargine,Hum.rec.anlog (Toujeo Solostar) 300 Unit/1 Ml Insuln.pen, 30 UNIT SC DAILY, (Reported) Insulin Human Lispro (Humalog) 1 Units/0.01 Ml Inj, 1 DOSE SC AC, (Reported) PER SLIDING SCALE Lisinopril (Lisinopril) 5 Mg Tablet, 5 MG PO DAILY, (Reported) Metformin HCl (Metformin HCl ER) 500 Mg Tab.er.24h, 500 MG PO BID, (Reported) Omeprazole (Omeprazole) 40 Mg Capsule.dr, 40 MG PO BID, (Reported) Tizanidine HCl (Tizanidine HCl) 4 Mg Cap, 4 MG PO TID, (Reported) Zolpidem Tartrate (Zolpidem Tartrate) 5 Mg Tablet, 5 MG PO QHS, (Reported) Scheduled PRN Oxycodone HCl/Acetaminophen (Oxycodone-Acetaminophen 5-325) 1 Tab Tab, 1 TAB PO QHS PRN for PAIN, (Reported) Allergies Coded Allergies: No Known Allergies (Verified , 07/22/20) SALAS SANTIAGO DO Sep 29, 2020 13:20
== END 2020-09-29 12:10 | disposition home or self-care (01) | DRG 689 ==
LOC: M ED 09:52 → M ED INP 15:06 → ENRESERV 15:29 → M 4MAIN 16:50
PROVIDERS: ADMIT Internal Medicine; ATTEND Internal Medicine
DX: N39.0 Urinary tract infection, site not specified (principal); U07.1 COVID-19; N17.9 Acute kidney failure, unspecified; E11.9 Type 2 diabetes mellitus without complications; G89.29 Other chronic pain; E78.5 Hyperlipidemia, unspecified; I10 Essential (primary) hypertension; N13.5 Crossing vessel and stricture of ureter without hydronephrosis; E66.01 Morbid (severe) obesity due to excess calories; Z79.899 Other long term (current) drug therapy; Z79.4 Long term (current) use of insulin; G47.33 Obstructive sleep apnea (adult) (pediatric); M54.2 Cervicalgia; Z87.891 Personal history of nicotine dependence; R19.7 Diarrhea, unspecified

== ENCOUNTER → 2020-11-26 | Outpatient (REF) | payer MEDICARE, MEDICAID ==
[~2020-11-26] MED LIST changes: +ATEN25TA PO; +OMEP-221 PO; +TRUL0.5I; +TRUL0.5I SC
[2020-11-26 13:49] LABS: CREATININE, URINE 61.3 MG/DL; MALB URINE SIEMENS 33.7 MG/L; MAU/CREAT RATIO 54.9 MCG/MG (0.0-30.0)
== END ==
LOC: M LAB REF 12:48
PROVIDERS: ATTEND Nurse Practitioner Family
DX: E11.65 Type 2 diabetes mellitus with hyperglycemia (principal)

== ENCOUNTER → 2020-12-08 | Outpatient (CLI) | payer MEDICARE, MEDICAID | LOC: M LABSMTC 09:34 | PROVIDERS: ATTEND Anesthesiology | DX: Z11.52 Encounter for screening for COVID-19 (principal); Z20.822 Contact with and (suspected) exposure to COVID-19 ==

== ENCOUNTER → 2021-01-21 | Outpatient (CLI) | payer MEDICARE, MEDICAID | LOC: M LABSMTC 10:18 | PROVIDERS: ATTEND Anesthesiology | DX: Z01.812 Encounter for preprocedural laboratory examination (principal); Z20.822 Contact with and (suspected) exposure to COVID-19 ==

== ENCOUNTER 2021-01-26 09:00 | Day surgery (SDC) | payer MEDICARE, MEDICAID ==
[~2021-01-26] VITALS: Ht 193 cm; Wt 140.5 kg
[~2021-01-26 09:00] MED LIST changes: -CEFD1CAP8 PO; +CEFD300C41 PO; -LISI-898 PO; -LISI10TA15; +LISI10TA24; +LISI5TAB11 PO; +NS 1,000 ML IV ONE; -OMEP-221 PO; +OMEP40CA5 PO
[2021-01-26] MEDS ORDERED: LIDOCAINE 2% 100MG/5ML SDV (FOR ANES.) As Ordered ONE (09:14)
[2021-01-26] MEDS ORDERED: propofoL 200 MG/20 ML VIAL As Ordered ONE ×3 (09:15→10:31)
[2021-01-26] MEDS ORDERED: GLYCOPYRROLATE INJ 0.2 MG/ML 2 ML VIAL As Ordered ONE (10:09)
[2021-01-26 11:00] VITALS: BP 129/86
== END 2021-01-26 11:10 | disposition home or self-care (01) ==
LOC: M OPP 09:00
PROVIDERS: ATTEND Internal Medicine Gastroenterology
DX: Z12.11 Encounter for screening for malignant neoplasm of colon (principal); Z80.0 Family history of malignant neoplasm of digestive organs; Q43.8 Other specified congenital malformations of intestine; K64.8 Other hemorrhoids; Z79.4 Long term (current) use of insulin; Z79.891 Long term (current) use of opiate analgesic; Z79.899 Other long term (current) drug therapy; Z98.84 Bariatric surgery status; Z87.891 Personal history of nicotine dependence

== ENCOUNTER → 2021-03-06 | Outpatient (CLI) | payer MEDICARE, MEDICAID ==
[~2021-03-06] MED LIST changes: -NS 1,000 ML IV ONE
== END ==
LOC: M WHC 10:43
PROVIDERS: ATTEND Registered Nurse
DX: I10 Essential (primary) hypertension (principal); Z98.84 Bariatric surgery status; E11.10 Type 2 diabetes mellitus with ketoacidosis without coma; E66.9 Obesity, unspecified

== ENCOUNTER → 2021-03-20 | Outpatient (CLI) | payer MEDICARE, MEDICAID ==
[2021-03-20 14:29] LABS: ALBUMIN 3.7 GM/DL (3.2-5.2); ALT/SGPT 15 U/L (12-78); BILIRUBIN,DIRECT 0.1 MG/DL (0.0-0.2); BILIRUBIN,TOTAL 0.3 MG/DL (0.2-1.0); BLOOD UREA NITROGEN 19 MG/DL (7-18); CALCIUM LEVEL 9.3 MG/DL (8.5-10.1); CARBON DIOXIDE LEVEL 24 MEQ/L (21-32); CHLORIDE LEVEL 111 MEQ/L (98-107); CREATININE FOR GFR 0.95 MG/DL (0.70-1.30); GLOMERULAR FILTRATION RATE > 60.0 (>56); GLUCOSE, FASTING 141 MG/DL (70-100); POTASSIUM SERUM 4.7 MEQ/L (3.5-5.1); SODIUM LEVEL 141 MEQ/L (136-145); TOTAL PROTEIN 7.6 GM/DL (6.4-8.2)
[2021-03-21 12:39] LABS: MAGNESIUM LEVEL 1.8 MG/DL (1.7-2.2)
== END ==
LOC: M LAB 13:28
PROVIDERS: ATTEND Registered Nurse
DX: I10 Essential (primary) hypertension (principal); E08.10 Diabetes mellitus due to underlying condition with ketoacidosis without coma; E87.5 Hyperkalemia; Z98.84 Bariatric surgery status

== ENCOUNTER 2021-07-20 10:06 | Emergency (ER) | payer MEDICARE, MEDICAID ==
[~2021-07-20] VITALS: Ht 193 cm; Wt 138.6 kg
[2021-07-20 10:07] VITALS: BP 145/69
[2021-07-20] MEDS ORDERED: LISI10TA22 (10:42)
[2021-07-20] MEDS ORDERED: GABA-282 (10:42)
[2021-07-20] MEDS ORDERED: LIDOCAINE 5% (LIDODERM) PATCH TD ONE (12:55)
[2021-07-20] MEDS ORDERED: KETOROLAC 60MG 2ML VIAL IM ONE (12:55)
[2021-07-20] MEDS ORDERED: diazePAM 10 MG TAB PO ONE (12:55)
[2021-07-20 13:35] LABS: BASO # 0.1 10^3/uL (0.0-0.2); BASO % 1.1 % (0.0-1.0); EOS # 0.2 10^3/uL (0.0-0.5); EOS % 2.8 % (0.0-3.0); HEMATOCRIT 37.2 % (42.0-52.0); HEMOGLOBIN 11.9 g/dl (13.5-17.5); LYMPH # 2.3 10^3/uL (1.5-5.0); LYMPH % 32.5 % (24.0-44.0); MEAN CORPUSCULAR HEMOGLOBIN 30.1 pg (27.0-33.0); MEAN CORPUSCULAR VOLUME 94.2 fl (80.0-96.0); MONO # 0.5 10^3/uL (0.0-0.8); NEUTROPHILS % 56.2 % (36.0-66.0); PLATELET COUNT, AUTOMATED 353 10^3/uL (150-450); RED BLOOD COUNT 3.95 10^6/uL (4.30-6.10); WHITE BLOOD COUNT 7.2 10^3/uL (4.0-10.0)
[2021-07-20 13:58] LABS: ERYTHROCYTE SEDIMENTATION RATE 83 mm/hr (0-20)
[2021-07-20] MEDS ORDERED: METH-1165 PO (15:18)
[2021-07-20] MEDS ORDERED: TRAM50TA2 PO (15:18)
[2021-07-20] MEDS ORDERED: ASPE4PAD TOP (15:18)
[2021-07-20] MEDS ORDERED: **NOTE PATIENT COMMENT** MISC XX SCH (21:00)
== END 2021-07-20 15:34 | disposition home or self-care (01) ==
LOC: M ED 10:06
DX: M51.37 Other intervertebral disc degeneration, lumbosacral region (principal); M51.36 Other intervertebral disc degeneration, lumbar region; M43.06 Spondylolysis, lumbar region; M48.061 Spinal stenosis, lumbar region without neurogenic claudication; M43.04 Spondylolysis, thoracic region; M51.34 Other intervertebral disc degeneration, thoracic region; M48.04 Spinal stenosis, thoracic region; E11.9 Type 2 diabetes mellitus without complications; I10 Essential (primary) hypertension; E78.5 Hyperlipidemia, unspecified; K21.9 Gastro-esophageal reflux disease without esophagitis; Z98.84 Bariatric surgery status; Z79.84 Long term (current) use of oral hypoglycemic drugs; Z79.899 Other long term (current) drug therapy
CPT/HCPCS: 36415; 72128; 72131; 80047; 81001; 85025; 85652; 86140; 87086; 96374; 99284; J1885

== ENCOUNTER → 2021-09-04 | Outpatient (CLI) | payer MEDICARE, MEDICAID ==
[~2021-09-04] MED LIST changes: +ASPE4PAD TOP; +GABA-282; +LISI10TA22; +METH-1165 PO; +TRAM50TA2 PO
[2021-09-04 10:40] LABS: HEMOGLOBIN 10.9 g/dl (13.5-17.5); MEAN CORPUSCULAR HEMOGLOBIN 31.1 pg (27.0-33.0); PLATELET COUNT, AUTOMATED 316 10^3/uL (150-450); RED BLOOD COUNT 3.51 10^6/uL (4.30-6.10); WHITE BLOOD COUNT 7.1 10^3/uL (4.0-10.0)
[2021-09-04 12:11] LABS: ALBUMIN 3.3 GM/DL (3.2-5.2); BILIRUBIN,TOTAL 0.3 MG/DL (0.2-1.0); CALCIUM LEVEL 9.2 MG/DL (8.5-10.1); CHOLESTEROL RISK RATIO 3.764 (<5); CREATININE FOR GFR 1.33 MG/DL (0.70-1.30); GLOMERULAR FILTRATION RATE 58.6 (>56); PROSTATIC SPECIFIC AG MONITOR 0.29 NG/ML (< 4.00); THYROID STIMULATING HORMONE 1.16 uIU/ML (0.358-3.740); TOTAL PROTEIN 7.4 GM/DL (6.4-8.2)
[2021-09-04 13:45] LABS: HEMOGLOBIN A1c 7.7 %
== END ==
LOC: M RAD 09:16
PROVIDERS: ATTEND Family Medicine
DX: R53.83 Other fatigue (principal); I10 Essential (primary) hypertension; Z79.899 Other long term (current) drug therapy

== ENCOUNTER 2022-02-25 15:07 | Emergency (ER) | payer MEDICARE, MEDICAID ==
[~2022-02-25] VITALS: Ht 193 cm; Wt 148.3 kg
[2022-02-25 15:55] LABS: BASO # 0.1 10^3/uL (0.0-0.2); BASO % 1.1 % (0.0-1.0); EOS # 0.2 10^3/uL (0.0-0.5); EOS % 4.2 % (0.0-3.0); HEMATOCRIT 32.3 % (42.0-52.0); HEMOGLOBIN 10.5 g/dl (13.5-17.5); LYMPH # 2.1 10^3/uL (1.5-5.0); MEAN CORPUSCULAR HEMOGLOBIN 30.4 pg (27.0-33.0); MEAN CORPUSCULAR HGB CONC 32.5 g/dl (32.0-36.5); MEAN CORPUSCULAR VOLUME 93.6 fl (80.0-96.0); MONO # 0.4 10^3/uL (0.0-0.8); NEUTROPHILS # 2.6 10^3/uL (1.5-8.5); NEUTROPHILS % 48.3 % (36.0-66.0); PLATELET COUNT, AUTOMATED 330 10^3/uL (150-450); RED BLOOD COUNT 3.45 10^6/uL (4.30-6.10); WHITE BLOOD COUNT 5.4 10^3/uL (4.0-10.0)
[2022-02-25 16:13] LABS: AMYLASE 84 U/L (30-118); BILIRUBIN,DIRECT 0.3 MG/DL (<0.4)
[2022-02-25 16:14] LABS: ALBUMIN 3.2 G/DL (3.2-5.2); ALKALINE PHOSPHATASE 155 U/L (46-116); ALT/SGPT 15 U/L (7.0-40); AST/SGOT 14 U/L (<34); BILIRUBIN,TOTAL 0.4 MG/DL (0.3-1.2); BLOOD UREA NITROGEN 24 MG/DL (9-23); CARBON DIOXIDE LEVEL 18 MMOL/L (20-31); CHLORIDE LEVEL 112 MMOL/L (98-107); CREATININE FOR GFR 1.08 MG/DL (0.70-1.30); GLOMERULAR FILTRATION RATE > 60.0 (>49); GLUCOSE, FASTING 213 MG/DL (74-106); POTASSIUM SERUM 5.1 MMOL/L (3.5-5.1); SODIUM LEVEL 138 MMOL/L (136-145); TOTAL PROTEIN 7.2 G/DL (5.7-8.2)
[2022-02-25] MEDS ORDERED: ISOVUE-370 76% 100ML VIAL As Ordered ONE (19:38)
[2022-02-25] MEDS ORDERED: ONDANSETRON 4MG 2ML VIAL IV ONE (19:40)
[2022-02-25] MEDS ORDERED: NS 1,000 ML IV ONE (19:40)
[2022-02-25 19:57] LABS: LIPASE 89 U/L (12-53)
[2022-02-25] MEDS ORDERED: cefTRIAXone SOD 1 GM in D5W MINI-BAG PLUS 50 ML IV ONE (21:25)
[2022-02-25] MEDS ORDERED: CEFD300C41 PO (21:54)
[2022-02-25 22:16] VITALS: BP 140/73
== END 2022-02-25 22:19 | disposition home or self-care (01) ==
LOC: M ED 15:07
DX: N39.0 Urinary tract infection, site not specified (principal); K57.30 Diverticulosis of large intestine without perforation or abscess without bleeding; K80.20 Calculus of gallbladder without cholecystitis without obstruction; E11.9 Type 2 diabetes mellitus without complications; I10 Essential (primary) hypertension; E78.5 Hyperlipidemia, unspecified; K21.9 Gastro-esophageal reflux disease without esophagitis; Z90.49 Acquired absence of other specified parts of digestive tract; Z87.19 Personal history of other diseases of the digestive system; Z79.4 Long term (current) use of insulin; Z79.899 Other long term (current) drug therapy
CPT/HCPCS: 74177; 80048; 80076; 81000; 81015; 82150; 83690; 85025; 87086; 96361; 96365; 99284; J2405; Q9967

== ENCOUNTER → 2022-03-23 | Outpatient (CLI) | payer MEDICARE, MEDICAID ==
[2022-03-23 08:35] LABS: HEMATOCRIT 31.7 % (42.0-52.0); HEMOGLOBIN 10.2 g/dl (13.5-17.5); MEAN CORPUSCULAR HEMOGLOBIN 30.4 pg (27.0-33.0); MEAN CORPUSCULAR HGB CONC 32.2 g/dl (32.0-36.5); MEAN CORPUSCULAR VOLUME 94.3 fl (80.0-96.0); PLATELET COUNT, AUTOMATED 281 10^3/uL (150-450); RED BLOOD COUNT 3.36 10^6/uL (4.30-6.10); WHITE BLOOD COUNT 6.6 10^3/uL (4.0-10.0)
[2022-03-23 08:56] LABS: PROSTATIC SPECIFIC AG MONITOR 0.19 NG/ML (< 4.00)
[2022-03-23 08:59] LABS: ALBUMIN 3.4 G/DL (3.2-5.2); ALKALINE PHOSPHATASE 179 U/L (46-116); ALT/SGPT 10 U/L (7.0-40); AST/SGOT 16 U/L (<34); BILIRUBIN,TOTAL 0.8 MG/DL (0.3-1.2); BLOOD UREA NITROGEN 24 MG/DL (9-23); CALCIUM LEVEL 9.5 MG/DL (8.3-10.6); CARBON DIOXIDE LEVEL 22 MMOL/L (20-31); CHLORIDE LEVEL 109 MMOL/L (98-107); CHOLESTEROL LEVEL 125 MG/DL (<200); CHOLESTEROL RISK RATIO 3.94 (<5); CREATININE FOR GFR 1.07 MG/DL (0.70-1.30); GLOMERULAR FILTRATION RATE > 60.0 (>49); GLUCOSE, FASTING 131 MG/DL (74-106); HDL CHOLESTEROL 31.7 MG/DL (>40); LDL CHOLESTEROL 68.7 MG/DL (<100); NON-HDL-C 93 MG/DL; POTASSIUM SERUM 4.8 MMOL/L (3.5-5.1); SODIUM LEVEL 135 MMOL/L (136-145); TOTAL PROTEIN 7.2 G/DL (5.7-8.2); TRIGLYCERIDES LEVEL 123 MG/DL (<150)
[2022-03-23 09:00] LABS: THYROID STIMULATING HORMONE 1.733 uIU/ML (0.55-4.78); TOTAL 25(OH) VITAMIN D 17.4 NG/ML (20.0-100.0)
[2022-03-23 09:01] LABS: TESTOSTERONE 458 NG/DL (241-827)
[2022-03-23 09:31] LABS: HEMOGLOBIN A1c 7.8 % (4.0-6.0)
== END ==
LOC: M LAB 07:42
PROVIDERS: ATTEND Family Medicine
DX: E03.9 Hypothyroidism, unspecified (principal); I10 Essential (primary) hypertension; R53.83 Other fatigue; E11.9 Type 2 diabetes mellitus without complications; Z79.899 Other long term (current) drug therapy

== ENCOUNTER → 2022-05-05 | Outpatient (CLI) | payer MEDICARE, MEDICAID | LOC: M RAD 08:30 | PROVIDERS: ATTEND Family Medicine | DX: M16.11 Unilateral primary osteoarthritis, right hip (principal); M54.30 Sciatica, unspecified side ==

== ENCOUNTER 2022-06-21 06:57 | Emergency (ER) | payer MEDICARE, MEDICAID ==
[~2022-06-21] VITALS: Ht 193 cm; Wt 145.4 kg
[2022-06-21] MEDS ORDERED: ONDANSETRON 4MG 2ML VIAL IV ONE (09:30)
[2022-06-21] MEDS ORDERED: KETOROLAC 30 MG/ML 1ML VIAL IV ONE (09:30)
[2022-06-21 10:14] LABS: BASO # 0.1 10^3/uL (0.0-0.2); BASO % 0.5 % (0.0-1.0); EOS # 0.1 10^3/uL (0.0-0.5); EOS % 0.8 % (0.0-3.0); HEMATOCRIT 28.9 % (42.0-52.0); HEMOGLOBIN 9.7 g/dl (13.5-17.5); LYMPH # 1.5 10^3/uL (1.5-5.0); LYMPH % 16.1 % (24.0-44.0); MEAN CORPUSCULAR HEMOGLOBIN 31.1 pg (27.0-33.0); MEAN CORPUSCULAR HGB CONC 33.6 g/dl (32.0-36.5); MEAN CORPUSCULAR VOLUME 92.6 fl (80.0-96.0); MONO # 1.1 10^3/uL (0.0-0.8); MONO % 11.1 % (2.0-8.0); NEUTROPHILS # 6.7 10^3/uL (1.5-8.5); NEUTROPHILS % 70.7 % (36.0-66.0); PLATELET COUNT, AUTOMATED 276 10^3/uL (150-450); RED BLOOD COUNT 3.12 10^6/uL (4.30-6.10); WHITE BLOOD COUNT 9.5 10^3/uL (4.0-10.0)
[2022-06-21 10:39] LABS: ALBUMIN 2.9 G/DL (3.2-5.2); BILIRUBIN,DIRECT 0.3 MG/DL (<0.4); BILIRUBIN,TOTAL 0.5 MG/DL (0.3-1.2); TOTAL PROTEIN 6.9 G/DL (5.7-8.2)
[2022-06-21] MEDS ORDERED: LIDOCAINE 2% 5ML JELLY UROJET TOP ONE (12:00)
[2022-06-21 16:13] VITALS: BP 120/69
== END 2022-06-21 16:29 | disposition home or self-care (01) ==
LOC: M ED 06:57
DX: R33.9 Retention of urine, unspecified (principal); N17.9 Acute kidney failure, unspecified; N35.919 Unspecified urethral stricture, male, unspecified site; R19.7 Diarrhea, unspecified; E11.9 Type 2 diabetes mellitus without complications; I10 Essential (primary) hypertension; D64.9 Anemia, unspecified; G47.30 Sleep apnea, unspecified; K21.9 Gastro-esophageal reflux disease without esophagitis; Z98.84 Bariatric surgery status; Z79.899 Other long term (current) drug therapy; Z79.4 Long term (current) use of insulin; Z79.84 Long term (current) use of oral hypoglycemic drugs
CPT/HCPCS: 51702; 74176; 80047; 80076; 81001; 83690; 85025; 87088; 87186; 96374; 96375; 99284; G0103; J1885; J2405

== ENCOUNTER → 2022-12-28 | Outpatient (CLI) | payer MEDICARE, MEDICAID ==
[~2022-12-28] MED LIST changes: -CEFD300C41 PO; +CEFD300C42 PO; +E-Z-GAS II EFFERVESCENT PACKET (SODIUM BICARB./CITRIC ACID/SIMETHICONE) As Ordered ONE; +E-Z-HD 98% w/w 340GM SUSP BTL As Ordered ONE; +E-Z-PAQUE 96% w/w SUSP 176GM BTL As Ordered ONE
[2022-12-28 09:07] LABS: HEMATOCRIT 36.3 % (42.0-52.0); HEMOGLOBIN 11.3 g/dl (13.5-17.5); MEAN CORPUSCULAR HEMOGLOBIN 29.7 pg (27.0-33.0); MEAN CORPUSCULAR HGB CONC 31.1 g/dl (32.0-36.5); MEAN CORPUSCULAR VOLUME 95.3 fl (80.0-96.0); PLATELET COUNT, AUTOMATED 319 10^3/uL (150-450); RED BLOOD COUNT 3.81 10^6/uL (4.30-6.10); WHITE BLOOD COUNT 6.5 10^3/uL (4.0-10.0)
[2022-12-28 09:27] LABS: ALBUMIN 3.5 G/DL (3.2-5.2); ALKALINE PHOSPHATASE 162 U/L (46-116); ALT/SGPT 19 U/L (7.0-40); AST/SGOT 25 U/L (<34); BILIRUBIN,TOTAL 0.5 MG/DL (0.3-1.2); BLOOD UREA NITROGEN 13 MG/DL (9-23); CALCIUM LEVEL 8.9 MG/DL (8.3-10.6); CARBON DIOXIDE LEVEL 25 MMOL/L (20-31); CHLORIDE LEVEL 107 MMOL/L (98-107); CHOLESTEROL LEVEL 123 MG/DL (<200); CHOLESTEROL RISK RATIO 3.32 (<5); CREATININE FOR GFR 0.86 MG/DL (0.70-1.30); GLOMERULAR FILTRATION RATE > 60.0 (>49); GLUCOSE, FASTING 98 MG/DL (74-106); LDL CHOLESTEROL 59.6 MG/DL (<100); POTASSIUM SERUM 4.6 MMOL/L (3.5-5.1); PROSTATIC SPECIFIC AG MONITOR 0.17 NG/ML (< 4.00); SODIUM LEVEL 140 MMOL/L (136-145); TESTOSTERONE 375 NG/DL (241-827); THYROID STIMULATING HORMONE 1.583 uIU/ML (0.55-4.78); TOTAL PROTEIN 7.5 G/DL (5.7-8.2); TRIGLYCERIDES LEVEL 132 MG/DL (<150)
[2022-12-28 09:41] LABS: HEMOGLOBIN A1c 5.8 % (4.0-6.0)
== END ==
LOC: M RAD 08:30
PROVIDERS: ATTEND Family Medicine
DX: D64.9 Anemia, unspecified (principal); R53.83 Other fatigue; E78.00 Pure hypercholesterolemia, unspecified; R97.20 Elevated prostate specific antigen [PSA]

== ENCOUNTER → 2023-10-25 | Outpatient (CLI) | payer MEDICAID, MEDICARE ==
[~2023-10-25] MED LIST changes: +CEFD1CAP9 PO; -CEFD300C42 PO; -E-Z-GAS II EFFERVESCENT PACKET (SODIUM BICARB./CITRIC ACID/SIMETHICONE) As Ordered ONE; -E-Z-HD 98% w/w 340GM SUSP BTL As Ordered ONE; -E-Z-PAQUE 96% w/w SUSP 176GM BTL As Ordered ONE; +TIZA4CAP3 PO; -TIZA4CAP6 PO
== END ==
LOC: M RAD 06:49
PROVIDERS: ATTEND Family Medicine
DX: I10 Essential (primary) hypertension (principal); R53.83 Other fatigue; E11.9 Type 2 diabetes mellitus without complications; I45.10 Unspecified right bundle-branch block; R94.31 Abnormal electrocardiogram [ECG] [EKG]

== ENCOUNTER → 2023-11-22 | Outpatient (CLI) | payer MEDICAID, MEDICARE ==
[~2023-11-22] MED LIST changes: +E-Z-GAS II EFFERVESCENT PACKET (SODIUM BICARB./CITRIC ACID/SIMETHICONE) As Ordered ONE; +E-Z-HD 98% w/w 340GM SUSP BTL As Ordered ONE; +E-Z-PAQUE 96% w/w SUSP 176GM BTL As Ordered ONE; +GABA-1172; -GABA-282
== END ==
LOC: M RAD 09:28
PROVIDERS: ATTEND Family Medicine
DX: R10.9 Unspecified abdominal pain (principal); R63.4 Abnormal weight loss